=== PATIENT | female | born 1970 | race Caucasian/White ===

== ENCOUNTER 2020-03-01 09:32 | Outpatient (CLI) | payer MEDICARE, BC, SELFPAY ==
--- NOTE | ~2020-03-01 | XR_ITS ---
EXAMINATION: XR foot RT min 3V DATE: 03/01/2020 10:19 INDICATION: Right foot pain TECHNIQUE: Dorsoplantar, lateral, and 2 oblique views of the right foot were obtained. COMPARISON: None. FINDINGS: There is advanced osteoarthritis of the midfoot with degenerative subluxations of the calca caesar and talar articulations of the midfoot. No fracture is identified. The soft tissues are unremark able. There is mild to moderate osteoarthritis in multiple interphalangeal joints. IMPRESSION: 1. 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 Reviewed, dictated and finalized at location A.
--- NOTE | ~2020-03-01 | XR_ITS ---
EXAMINATION: XR thoracic spine 2V DATE: 03/01/2020 10:19 INDICATION: Back pain TECHNIQUE: AP, lateral and lateral swimmer's views of the thoracic spine were obtained. COMPARISON: 04/14/2019 FINDINGS: There is no fracture, dislocation, or subluxation. The vertebral body heights are normal. T here is loss of intervertebral disc space height at multiple levels in the thoracic spine, particular ly in the lower thoracic spine. Small degenerative osteophytes project from the anterior endplates of multiple vertebral bodies. Severe spondylosis is incidentally noted at C5-6. Median sternotomy wires are consistent with prior cardiac surgery. There is chronic scarring of the lung bases. IMPRESSION: 1. Moderate thoracic spondylosis without acute findings. Reviewed, dictated and finalized at location A.
--- NOTE | ~2020-03-01 | XR_ITS ---
EXAMINATION: XR lumbar spine 6V w bending DATE: 03/01/2020 10:19 INDICATION: Low back pain TECHNIQUE: Anteroposterior, lateral in neutral, flexion and extension, and bilateral oblique views of the lumbar spine, and cone-down lateral view of the lumbosacral junction were obtained. COMPARISON: 07/02/2014 FINDINGS: The vertebral body heights are normal. There is severe loss of intervertebral disc space he ight at L3-4, worsened since the comparison examination. Bone alignment is normal. There is no laxity with flexion or extension. There is no fracture. There are 15 degrees of lumbar dextroscoliosis. Mo derate lower lumbar facet osteoarthritis is noted. Small degenerative osteophytes project from the an terior endplates of multiple vertebral bodies. Surgical staple line is noted in the left upper quadra nt. IMPRESSION: 1. Moderate lumbar spondylosis with interval worsening at L3-4. No acute findings. Reviewed, dictated and finalized at location A. IMPRESSION: 1. Moderate lumbar spondylosis with interval worsening at L3-4. No acute findin gs.
== END 2020-03-01 09:33 | disposition home or self-care (01) ==
LOC: ANHIMG 09:42
PROVIDERS: PCP Family Medicine; Visit Provider Nurse Practitioner Family
DX: M79.671 Pain in right foot (principal); M54.6 Pain in thoracic spine; M54.5 Low back pain
CPT/HCPCS: 72070; 72114; 73630

== ENCOUNTER 2020-05-28 08:28 | Outpatient (CLI) | payer MEDICARE, BC, SELFPAY ==
--- NOTE | ~2020-05-28 | XR_ITS ---
XR knee RT 2V, XR knee LT 2V 05/28/2020 09:57 Indication: Bilateral knee pain Procedure: 2 views of each knee Comparison: No prior studies for comparison. Findings: There is moderate bilateral tricompartment osteoarthritis of the knees. No fracture or trau matic malalignment. No significant joint effusion. Impression: 1: Moderate bilateral tricompartment osteoarthritis of the knees. Reviewed, dictated and finalized at location B. Impression: 1: Moderate bilateral tricompartment osteoarthritis of the knees. Impression: 1: Moderate bilateral tricompartment osteoarthritis of the knees.
--- NOTE | ~2020-05-28 | MR_ITS ---
EXAMINATION: MR lumbar spine wo con EXAM DATE: 05/28/2020 09:38 INDICATION: Low back pain. TECHNIQUE: Multi-sequential, multiplanar MR images of the lumbar spine were obtained without contrast . Sagittal T1, T2, T2 fat saturation images. Axial T2 weighted images. Correlation is made to [facility] spine 2014. FINDINGS: There is moderate mid lumbar dextroscoliosis, moderate disc disease at L3-4 with slight los s of these vertebral body heights on there left, concave sides and endplate degenerative signal stephenson e. The conus medullaris terminates at the L1/2 level and has normal signal intensity and morphology. Otherwise mild lumbar disc disease. There is about 2 mm retrolisthesis L3 on L4. The vertebral freddy s are otherwise aligned in the AP dimension. Paraspinal soft tissue is unremarkable. Level by level evaluation: T11-12: There is a mild diffuse disc bulge. Facet arthropathy: Mild to moderate. Neural foraminal stenosis: Mild to moderate right, no left. Central canal stenosis: Mild. T12-L1: There is a mild diffuse disc bulge. Facet arthropathy: None. Neural foraminal stenosis: No stenosis. Central canal stenosis: No stenosis. L1-L2: Disc does not extend beyond the endplate margin. Facet arthropathy: None. Neural foraminal stenosis: No stenosis. Central canal stenosis: No stenosis. L2-L3: There is a mild diffuse disc bulge. Facet arthropathy: Mild to moderate. Neural foraminal stenosis: Mild bilateral. Central canal stenosis: Mild. L3-L4: There is a moderate to large diffuse disc bulge. Facet arthropathy: Moderate to severe right, moderate left. Ligamentum flavum hypertrophy. Neural foraminal stenosis: Moderate to severe left, mild to moderate right. Central canal stenosis: Moderate. L4-L5: [id number] Facet arthropathy: Moderate to severe right, moderate left. Neural foraminal stenosis: Moderate right, mild to moderate left. Central canal stenosis: Mild. L5-S1: There is a mild diffuse disc bulge. Facet arthropathy: Moderate bilateral. Neural foraminal stenosis: Mild to moderate bilateral. Central canal stenosis: Mild. IMPRESSION: Moderate mid lumbar dextroscoliosis centered at L3-4 with mild loss of these vertebral gris dy heights, central canal and neural foraminal stenosis most narrowed at this level. Reviewed, dictated and finalized at location A. IMPRESSION: Moderate mid lumbar dextroscoliosis centered at L3-4 with mild loss of these vertebral body heights, central canal and neural foraminal stenosis m ost narrowed at this level.
--- NOTE | ~2020-05-28 | XR_ITS ---
XR hip BI wo pelvis 05/28/2020 09:56 Indication: Chronic hip pain Procedure: 2 views each hip Comparison: No prior studies for comparison. Findings: No fracture or traumatic malalignment. Pelvic rings are intact. Sacral foramen are symmetri c. No significant joint space narrowing. No radiopaque foreign bodies. There are surgical changes ove rlying the pelvis. Impression: 1: No significant bone or joint abnormality. Reviewed, dictated and finalized at location B. Impression: 1: No significant bone or joint abnormality.
== END 2020-05-28 08:29 | disposition home or self-care (01) ==
PROVIDERS: PCP Family Medicine; Visit Provider Pain Medicine Interventional Pain Medicine
DX: M16.9 Osteoarthritis of hip, unspecified (principal); K91.1 Postgastric surgery syndromes; I69.811 Memory deficit following other cerebrovascular disease; F33.1 Major depressive disorder, recurrent, moderate; M17.0 Bilateral primary osteoarthritis of knee
CPT/HCPCS: 72148; 73521; 73560

== ENCOUNTER → 2020-07-16 10:49 | Outpatient (CLI) | payer MEDICARE, BC, SELFPAY ==
--- NOTE | ~2020-07-16 | MR_ITS ---
EXAMINATION: MR brain/brain stem wo/w con EXAM DATE: 07/16/2020 11:48 INDICATION: Transient cerebral ischemia headaches. History hypoxic brain injury . Generalized headach es. Memory loss. TECHNIQUE: Magnetic resonance imaging (MRI) of the brain/brain stem obtained without contrast. Sagit melanie T1, axial diffusion, gradient echo (T2*), T1, T2, FLAIR sequences obtained. Patient was then inj ected with 15 cc intravenous Multihance contrast. Axial and coronal postcontrast T1 weighted sequence s obtained. There is no prior study for comparison. FINDINGS: There are no areas of restricted diffusion to suggest acute infarction. There is no acute hemorrhage seen on the T2*, a hemosiderin sensitive sequence. No intraparenchymal brain mass. The ve ntricles are normal in size. There are no extra-axial collections. Flow voids are seen in the cereb ral arteries on the T2-weighted sequences consistent with their expected patency. The orbits are unr emarkable. Soft tissue is unremarkable. There are no areas of abnormal enhancement on the postcont rast images. IMPRESSION: Normal brain MRI examination. Reviewed, dictated and finalized at location B. 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
[2020-07-16 11:24] LABS: Estimated Glomerular Filt Rate > 60
== END ==
DX: G45.9 Transient cerebral ischemic attack, unspecified (principal)
CPT/HCPCS: 70553; A9577

== ENCOUNTER → 2021-03-02 12:26 | Outpatient (CLI) | payer MEDICARE, BC, SELFPAY ==
--- NOTE | ~2021-03-02 | XR_ITS ---
XR knee LT 2V 03/02/2021 13:40 Indication: Left knee pain Procedure: 2 views left knee Comparison: 05/28/2020 Findings: There is severe osteoarthritis of the left knee. No fracture, subluxation or dislocation. N o significant joint effusion. No foreign bodies. Impression: 1: Severe osteoarthritis of the left knee. Reviewed, dictated and finalized at location B. Impression: 1: Severe osteoarthritis of the left knee.
--- NOTE | ~2021-03-02 | XR_ITS ---
XR knee RT 2V 03/02/2021 13:40 Indication: Right knee pain Procedure: 2 views right knee Comparison: 05/28/2020 Findings: There is moderate tricompartment osteoarthritis of the right knee. No fracture, subluxation or dislocation. Small joint effusion. No foreign bodies. Osteopenia. There is chondrocalcinosis. Impression: 1: Moderate tricompartment osteoarthritis of the right knee. Reviewed, dictated and finalized at location B. Impression: 1: Moderate tricompartment osteoarthritis of the right knee.
== END ==
PROVIDERS: PCP Family Medicine; Visit Provider Pain Medicine Interventional Pain Medicine
DX: E66.9 Obesity, unspecified (principal); M16.9 Osteoarthritis of hip, unspecified; F33.1 Major depressive disorder, recurrent, moderate; K91.1 Postgastric surgery syndromes; G89.4 Chronic pain syndrome; I69.811 Memory deficit following other cerebrovascular disease; M17.0 Bilateral primary osteoarthritis of knee
CPT/HCPCS: 73560

== ENCOUNTER 2021-05-24 13:07 | Outpatient (CLI) | payer MEDICARE, BC, SELFPAY ==
--- NOTE | ~2021-05-24 | XR_ITS ---
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 TECHNIQUE: Frontal and lateral projections of the chest obtained and reviewed. Comparison is made to prior examination from 10/03/2019. FINDINGS: Sternotomy wires are present without findings to suggest sternal dehiscence. There is card iomegaly. There is elevated left hemidiaphragm again noted, air-filled viscus below. Hemidiaphragm pa ralysis not excludable. Scattered basilar atelectasis also not definitely changed. No evidence of sup erimposed acute airspace disease. No pneumothorax. Small pleural effusions. There are bony degenerati ve changes. IMPRESSION: Cardiomegaly and small pleural effusions. Chronic basilar atelectasis. Possible left hem idiaphragm paralysis. Reviewed, dictated and finalized at location B. IMPRESSION: Cardiomegaly and small pleural effusions. Chronic basilar atelecta sis. Possible left hemidiaphragm paralysis.
== END 2021-05-24 13:08 | disposition home or self-care (01) ==
LOC: ANHIMG 13:18
PROVIDERS: PCP Family Medicine
DX: Z94.1 Heart transplant status (principal); J90 Pleural effusion, not elsewhere classified; I51.7 Cardiomegaly
CPT/HCPCS: 71046

== ENCOUNTER 2021-06-24 10:16 | Emergency (ER) | payer MEDICARE, BC, SELFPAY ==
[2021-06-24] VITALS (87 sets, daily range): BP systolic 53–112; BP diastolic 34–96; PULSE 105–134; RESP 18–44; TEMP 36.3; O2SAT 91–100
--- NOTE | ~2021-06-24 | CT_ITS ---
EXAMINATION: CT abdomen pelvis wo con DATE: 06/24/2021 14:14 INDICATION: Generalized abdominal pain. TECHNIQUE: Computed tomography (CT) of the abdomen and pelvis was performed without intravenous contr ast. Automated exposure control and iterative reconstruction technique were employed. The dose-length product was 384.22 mGy-cm. COMPARISON: CT abdomen and pelvis 07/13/2017, chest CT 04/24/19 FINDINGS: There is chronic elevation of left hemidiaphragm. The visualized portions of the lung bases demonstrate mild atelectasis and scarring. Calcified left lung nodules are consistent with old granu lomatous disease. There is chronic cavitation in right lower lobe with adjacent chronic pleural thick ening. No pleural effusion. There are changes of heart transplant. No pericardial effusion. There is a central line tip at superior cavoatrial junction. There are changes of gastric bypass procedure. Th e liver and spleen are normal. The gallbladder is distended. The pancreas, adrenal glands, and right kidney are normal. There is a 16 mm hemorrhagic cyst in left kidney. There are 3 stones in left kidne y measuring up to 5 mm. There is mild left hydronephrosis and hydroureter. There is a 4 mm stone in d istal left ureter. The bladder is decompressed by a Mckeon catheter. There are no dilated loops of bow el. The appendix is normal. There are no pathologically enlarged lymph nodes. There is trace ascites. There is lumbar dextroscoliosis and severe spondylosis. IMPRESSION: 1. 4 mm stone in distal left ureter with mild left hydronephrosis and hydroureter. 2. Nonobstructing left kidney stones. 3. Scarring in the inferior lungs including chronic cavitation in right lower lobe with adjacent jewel bearing turner jorge pleural thickening. 4. Gallbladder distention, which may be secondary to fasting. Correlate with physical exam for eviden ce of acute cholecystitis. Reviewed, dictated and finalized at location A. IMPRESSION: 1. 4 mm stone in distal left ureter with mild left hydronephrosis and hydrouret er. 2. Nonobstructing left kidney stones. 3. Scarring in the inferior lungs including chronic cavitation in right lower l obe with adjacent chronic pleural thickening. 4. Gallbladder distention, which may be secondary to fasting. Correlate with ph ysical exam for evidence of acute cholecystitis.
--- NOTE | ~2021-06-24 | XR_ITS ---
EXAMINATION: XR chest port-a-cath/central EXAM DATE: 06/24/2021 12:34 INDICATION: Post procedure Central line placement. TECHNIQUE: Portable AP frontal chest x-ray was obtained. Comparison is made to prior examination from 05/24/2021. FINDINGS: Sternotomy wires are present without findings to suggest sternal dehiscence. There is a rig ht-sided IJ venous line. No evidence of postprocedure pneumothorax. There is cardiomegaly. Again ther e is elevated left hemidiaphragm, blunting of the costophrenic recess which could be small effusions, and bibasilar airspace disease most consistent with atelectasis, but please correlate with CT abdome n pelvis which has not yet been performed. There are no osseous abnormalities identified. IMPRESSION: Persistent cardiomegaly, bibasilar atelectasis. Cardiomegaly, small pleural effusions. Pn eumonia and left hemidiaphragm paralysis not excludable. Reviewed, dictated and finalized at location B. IMPRESSION: Persistent cardiomegaly, bibasilar atelectasis. Cardiomegaly, small pleural effusions. Pneumonia and left hemidiaphragm paralysis not excludable.
--- NOTE | 2021-06-24 10:21 | ECG_ITS ---
Measurements Intervals [place] Rate: 115 P: 33 LA: 155 QRS: 7 QRSD: 123 T: 21 QT: 355 QTc: 492 Interpretive Statements SINUS TACHYCARDIA RIGHT BUNDLE BRANCH BLOCK ABNORMAL ECG Electronically Signed On 06-24-2021 11:28:20 CDT by Raul Lantigua D.O.
[2021-06-24 10:27] LABS: Glucose Point of Care 55 mg/dl (65-105)
[2021-06-24] MEDS: SODIUM CHLORIDE 0.9% IV 1,000 ML 999 ML IV CONT ×2 (10:28→12:05)
[2021-06-24] MEDS: HYDROmorphone HCL INJ (*CRX) 1 MG/ML SYR IV PUSH (10:29)
[2021-06-24] MEDS: ONDANSETRON INJ 4 MG/2 ML VIAL IV PUSH (10:30)
[2021-06-24 11:12] LABS: Basophils Absolute Auto 0.1 K/mm3 (0.0-0.1); Basophils Percent Auto 0.5 % (0.2-1.2); Eosinophils Absolute Auto 0.1 K/mm3 (0-0.3); Eosinophils Percent Auto 0.4 % (0-4.4); Hematocrit 41.6 % (37.0-47.0); Hemoglobin 12.5 g/dL (12.0-15.0); Immature Granulocyte Percent A 1.1 % (0-0.5); Lymphocytes Absolute Auto 0.82 K/mm3 (0.9-3.2); Lymphocytes Percent Auto 4.3 % (18.3-44.2); Mean Corpuscular Volume 93.3 fl (80-100); Mean Platelet Volume 10.7 fl (7.4-10.4); Monocytes Absolute Auto 0.2 K/mm3 (0.1-0.6); Neutrophils Absolute Auto 17.6 K/mm3 (1.3-6.7); Neutrophils Percent Auto 92.7 % (45.5-73.1); Platelet Count Result 161 k/mm3 (150-375); Red Blood Count 4.46 M/mm3 (4.2-5.4); Red Cell Distribution Width 14.9 % (11.5-14.5)
[2021-06-24 11:30] LABS: INR 1.6; Lactic Acid Reflex 9.2 mmol/L (0.7-2.1); Prothrombin Time 18.6 Seconds (11.1-14.7)
[2021-06-24 11:31] LABS: Partial Thromboplastin Time 38.9 SECONDS (22.3-36.8)
[2021-06-24 11:48] LABS: Albumin Level 3.3 g/dL (3.5-5.1); Alkaline Phosphatase 98 U/L (38-126); Anion Gap 17 mmol/L (8-16); Bilirubin,Total 0.8 mg/dL (0.2-1.3); Blood Urea Nitrogen 34 mg/dL (7-17); Calcium 8.2 mg/dL (8.4-10.2); Carbon Dioxide 21 mmol/L (22-30); Chloride 102 mmol/L (98-107); Estimated CRCL calculation 21 ml/min; Estimated Glomerular Filt Rate 20; Glucose 163 mg/dL (65-110); Lipase 22 U/L (23-300); Potassium 3.6 mmol/L (3.4-5.0); Sodium 140 mmol/L (137-145)
[2021-06-24 11:54] LABS: Alanine Aminotransferase 328 U/L (4-35)
[2021-06-24 12:04] LABS: Glucose Point of Care 73 mg/dl (65-105)
--- NOTE | 2021-06-24 12:18 | PC.NURSE ---
Blood cultures drawn x 2. Will start antibiotics
[2021-06-24] MEDS: NOREPINEPHRINE 8 MG/D5W 250 ML 8 MG/250 ML BAG 9.38 MG IV CONT (12:33)
--- NOTE | 2021-06-24 12:38 | PC.NURSE ---
Norepi drip started at this time. HR 118, BP 80/54
--- NOTE | 2021-06-24 13:06 | ED.ABDPAIN ---
HPI - Abdominal Pain General Chief Complaint: Abdominal Pain Stated Complaint: N/V/D PAIN ALL OVER Time Seen by Provider: 06/24/21 10:21 Source: patient History of Present Illness HPI narrative: Patient presents with diffuse body aches most prominent in her abdomen. Her pain is achy, constant, radiates all over her body, worse with any sort of body movement. She has a prior history of cardiac transplant at [facility]. She was she generally is not feeling well she feels lightheaded she feels weak she denies fevers denies nausea or vomiting. Has been getting worse over the past couple days but were severe this morning. She called EMS she is feeling too weak to use the rest and soiled herself. Related Data Allergies Allergy/AdvReac Type Severity Reaction Status Date / Time amoxicillin Allergy Unknown Hives Verified 06/24/21 10:43 Penicillins Allergy Unknown Hives Verified 06/24/21 10:43 warfarin Allergy Unknown Hives Verified 06/24/21 10:43 COATING ON COUMADIN TAB Allergy Mild Hives Uncoded 06/24/21 10:43 Review of Systems Review of Systems: CONSTITUTIONAL: Denies fever, chills, or sweats. EYES: Denies visual changes, redness, or discharge. ENT: Denies rhinorrhea, congestion, sore throat, or otalgia. CARDIOVASCULAR: Reports diffuse chest pain RESPIRATORY: Denies cough or dyspnea. GASTROINTESTINAL: Reports diffuse abdominal pain GENITOURINARY: Denies dysuria or hematuria. SKIN: Denies rash or itching. MUSCULOSKELETAL: Reports diffuse back and joint pain NEUROLOGIC: Denies headache, numbness, dizziness, or focal weakness. All systems reviewed & are unremarkable except as noted in HPI and below [facility] Family History Family History Sibling Diabetes mellitus Exam Narrative: GENERAL: Patient appears chronically ill and in severe distress due to pain HEAD: Normocephalic, atraumatic. EYES: PERRLA and EOMI. ENT: Nares clear, no rhinorrhea or epistaxis. Mucous membranes moist. NECK: Supple. No masses. No JVD CHEST: Clear to auscultation. No respiratory distress. No wheezes rales or rhonchi HEART: Regular tachycardia. No murmur heard. Normal peripheral pulses. ABDOMEN: Severe diffuse abdominal pain soft, nondistended,. EXTREMITIES: Normal range of motion. No edema. SKIN: Warm, dry, no rash. NEURO: No focal deficits. Alert and oriented x3. PSYCH: Normal mood and affect. Procedures Central Line Placement Right IJ: Central Line Date: 06/24/21 Central Line Time: 12:08 Discussed w/ the patient/family/POA,the placement of a central venous catheter, including its clinical necessity/indication & associated potential risks, benifits and alternatives.: Yes The patient/family/POA understand(s) and acknowledge(s) the need to proceed with central venous catheter insertion as an important element of the patient's clinical management.: Yes Performed Emergently - Given emergent patient condition, temporal constraints may have precluded informed consent.: Yes Time Out Performed: No Patient Placed on Monitor/Pulse Ox: Yes Max. Sterile Barrier Technique: Caps, large sterile sheet and hand hygiene Central Line Prep: 2% chlorhexidine scrub Technique: US-Guided Local Anesthetic: lidocaine 1% and with epi Amount of anesthesia used (mL): 2 Ultrasound Used for Placement: Yes Central Line Lumen Inserted: triple Post Procedure: sutured in place, good blood return, all ports aspirated, flushed, capped and sterile dressing applied Post Procedure X-Ray: tip of catheter in good position and no pneumothorax seen Patient Tolerated Procedure: well Complications: none Course Reevaluation(s) Reevaluation #1: Patient's vital signs are improving with fluids and pressors. Primary concern is for urosepsis. Requesting transfer to [facility] as that is where her transplant team is and would likely need to be involve
--- NOTE | 2021-06-24 13:13 | PC.NURSE ---
IV Dilaudid administered for pain. Pt unable to lie still, MD aware. Will call CT scan as soon as patient is stabilized and able to lie still. MAP improving at 67, BP 84/59, HR 128
[2021-06-24] MEDS: HYDROmorphone HCL INJ (*CRX) 1 MG/ML SYR 0.5 MG IV PUSH ×3 (13:17→17:02)
--- NOTE | 2021-06-24 13:18 | PC.NURSE ---
Spoke with MD about Tacrolimus. OK to hold at this time due to kidney function.
[2021-06-24 14:03] LABS: Add Urine Microscopic? YES; Appearance Urine Cloudy (Clear); Bacteria Urine Trace /hpf; Bilirubin Urine Negative (Negative); Blood Urine 2+ (Negative); Color Urine Amber (Yellow); Glucose Urine UA Negative (Negative); Ketones Urine Negative (Negative); Leukocyte Esterase Ur 3+ LEU/UL (Negative); Mucus Urine Rare /lpf; Nitrate Urine Negative (Negative); Protein Urine 2+ mg/dL (Negative); RBC Urine 21-50 /hpf (0-2); Specific Grav Ur 1.013 (1.001-1.035); Squamous Epithelial Cell Urine Many /hpf (Few); Urobilinogen Urine Negative mg/dL (<2.0); WBC Clumps Urine Present /HPF; WBC Urine >75 /hpf
[2021-06-24 14:10] LABS: Reflex Lactic Acid Yes or No Add Lactic
[2021-06-24 14:12] LABS: Aspartate Amino Transferase 789 U/L (14-36)
[2021-06-24 14:56] LABS: Lactic Acid 2.1 mmol/L (0.7-2.1)
[2021-06-24 15:15] LABS: Glucose Point of Care 61 mg/dl (65-105)
[2021-06-24] MEDS: DEXTROSE 10% 500 ML IV CONT (15:20)
[2021-06-24 16:35] LABS: Glucose Point of Care 80 mg/dl (65-105)
--- NOTE | 2021-06-24 16:35 | PC.NURSE ---
Dr. Astorga informed of most recent blood glucose of 80. Will continue to monitor. No new orders at this time.
--- NOTE | 2021-06-24 17:41 | PC.NURSE ---
Blood pressure 78/49. Verbal order given to increase levophed to 6mcg/min (11.3ml/hr)
[2021-06-24 19:00] LABS: Glucose Point of Care < 20 mg/dl (65-105)
--- NOTE | 2021-06-24 19:02 | PC.NURSE ---
Received call from Domitila at [facility] transfer center. Pt has been admitted to [facility], room [address]. Will call report at [phone]
[2021-06-24 19:03] LABS: Glucose Point of Care < 20 mg/dl (65-105)
[2021-06-24] MEDS: DEXTROSE 50% 25 GM/50 ML SYRINGE (19:11)
[2021-06-24] MEDS: DEXTROSE 10% 500 ML 100 ML IV CONT (19:12)
[2021-06-24 19:37] LABS: Glucose Point of Care 94 mg/dl (65-105)
--- NOTE | 2021-06-24 19:40 | PC.NURSE ---
Prior nurse rechecked blood sugar, read-out was low . aware. RN pushed one amp of D50 and hung D10 @ 100 ml/HR per order from Dr Trinidad. Rechecked prior to EMS transfer at 94
== END 2021-06-24 19:45 | disposition short-term general hospital (02) ==
PROVIDERS: Emergency Provider Emergency Medicine; PCP Family Medicine
DX: I95.9 Hypotension, unspecified (principal); E16.2 Hypoglycemia, unspecified; R00.0 Tachycardia, unspecified; N39.0 Urinary tract infection, site not specified; R31.9 Hematuria, unspecified; D72.829 Elevated white blood cell count, unspecified; N13.2 Hydronephrosis with renal and ureteral calculous obstruction; Z94.1 Heart transplant status; I45.10 Unspecified right bundle-branch block; I51.7 Cardiomegaly; R91.8 Other nonspecific abnormal finding of lung field
CPT/HCPCS: 36415; 51702; 74176; 80053; 80197; 81001; 82948; 83605; 83690; 85025; 85610; 85730; 87040; 87077; 87086; 87186; 93005; 96361; 96365; 96366; 96367; 96368; 96375; 96376; 99285; C1751; J0131; J0692; J1170; J2405; J3370; J7030

== ENCOUNTER 2021-10-20 20:06 | Emergency (ER) | payer MEDICARE, BC, SELFPAY ==
[2021-10-20 20:09] VITALS: BP 168/97; PULSE 100; RESP 18; TEMP 36.2; O2SAT 97
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
== END 2021-10-20 22:01 | disposition home or self-care (01) ==
PROVIDERS: Emergency Provider Emergency Medicine; PCP Family Medicine
DX: S90.921A Unspecified superficial injury of right foot, initial encounter (principal); X08.8XXA Exposure to other specified smoke, fire and flames, initial encounter
CPT/HCPCS: 99282

== ENCOUNTER → 2021-11-23 11:47 | Outpatient (CLI) | payer MEDICARE, BC, SELFPAY ==
--- NOTE | ~2021-11-23 | XR_ITS ---
XR lumbar spine 2-3V 11/23/2021 12:10 Indication: Radiculopathy Procedure: 3 views lumbar spine Comparison: 03/01/2020 Findings: There is disc narrowing at all lumbar levels with right lateral listhesis at L3-4. There ar e multilevel degenerative changes of the facet joints. No acute fracture or traumatic malalignment. T here is dextroscoliosis centered at L3. Sacral foramen are symmetric. Impression: 1: Moderate lumbar spondylosis with dextroscoliosis. Reviewed, dictated and finalized at location B. Impression: 1: Moderate lumbar spondylosis with dextroscoliosis.
== END ==
PROVIDERS: Visit Provider Pain Medicine Interventional Pain Medicine
DX: M25.559 Pain in unspecified hip (principal); K91.1 Postgastric surgery syndromes; F33.1 Major depressive disorder, recurrent, moderate; E66.9 Obesity, unspecified; I69.811 Memory deficit following other cerebrovascular disease; M17.9 Osteoarthritis of knee, unspecified; M16.9 Osteoarthritis of hip, unspecified; G89.4 Chronic pain syndrome; M47.26 Other spondylosis with radiculopathy, lumbar region
CPT/HCPCS: 72100

== ENCOUNTER 2022-02-07 23:40 | Emergency (ER) | payer MEDICARE, BC, SELFPAY ==
--- NOTE | ~2022-02-07 | XR_ITS ---
XR chest 2V 02/08/2022 00:16 Indication: Shortness of breath Procedure: PA and lateral views of the chest Comparison: Comparison to multiple prior studies sequentially, with oldest reviewed study dated 10/03. Findings: There is chronic bibasilar scarring/atelectasis unchanged dating back to 10/03/2019. Small r ight pleural effusion. Status post median sternotomy. Heart size normal. No pneumothorax. Impression: 1: Chronic bibasilar scarring/atelectasis unchanged from prior studies. Reviewed, dictated and finalized at location A. Impression: 1: Chronic bibasilar scarring/atelectasis unchanged from prior studies.
[2022-02-07 23:42] VITALS: BP 106/81; PULSE 120; RESP 22; TEMP 36.8; O2SAT 98
--- NOTE | 2022-02-07 23:46 | ECG_ITS ---
Measurements Intervals [place] Rate: 118 P: 30 LA: 166 QRS: -35 QRSD: 109 T: 47 QT: 436 QTc: 613 Interpretive Statements SINUS TACHYCARDIA LEFT AXIS DEVIATION [QRS AXIS < -30] BASELINE ARTIFACT NONSPECIFIC IVCD NONSPECIFIC T-WAVE ABNORMALITY BORDERLINE ECG COMPARED TO ECG 06/24/2021 11:03:19 LEFT-AXIS DEVIATION NOW PRESENT AND CRITERIA FOR RIGHT BUNDLE-BRANCH BLOCK NO LONGER MET Electronically Signed On 02-08-2022 11:31:20 CDT by Placido Hughes M.D.
[2022-02-08 00:28] VITALS: O2SAT 97
[2022-02-08 00:56] VITALS: PULSE 100; RESP 20
[2022-02-08] MEDS: ALBUTEROL SULFATE NEB 2.5 MG/3 ML INH 5 MG INHALATION (00:58)
[2022-02-08] MEDS: IPRATROPIUM BR 0.02% INH SOLN 0.5 MG/2.5 ML VIAL INHALATION (00:58)
[2022-02-08 01:10] VITALS: PULSE 114; RESP 15
[2022-02-08 02:01] LABS: Basophils Percent Auto 0.3 % (0.2-1.2); Eosinophils Absolute Auto 0.1 K/mm3 (0-0.3); Eosinophils Percent Auto 0.4 % (0-4.4); Hematocrit 37.5 % (37.0-47.0); Hemoglobin 11.1 g/dL (12.0-15.0); Immature Granulocyte Absolute 0.06 K/mm3 (0.00-0.031); Immature Granulocyte Percent A 0.5 % (0-0.5); Lymphocytes Absolute Auto 1.32 K/mm3 (0.9-3.2); Lymphocytes Percent Auto 10.5 % (18.3-44.2); Mean Corpuscular HGB Conc 29.6 g/dl (32-36); Mean Corpuscular Hemoglobin 26.4 pg (26-34); Mean Corpuscular Volume 89.1 fl (80-100); Mean Platelet Volume 9.4 fl (7.4-10.4); Neutrophils Absolute Auto 10.1 K/mm3 (1.3-6.7); Neutrophils Percent Auto 80.3 % (45.5-73.1); Platelet Count Result 204 k/mm3 (150-375); Red Blood Count 4.21 M/mm3 (4.2-5.4); Red Cell Distribution Width 15.9 % (11.5-14.5); White Blood Count 12.6 K/mm3 (4.5-10.0)
[2022-02-08 02:12] LABS: Alanine Aminotransferase 28 U/L (6-35); Albumin Level 3.5 g/dL (3.5-5.1); Alkaline Phosphatase 116 U/L (38-126); Anion Gap 4 mmol/L (8-16); Aspartate Amino Transferase 33 U/L (14-36); Bilirubin,Total 0.4 mg/dL (0.2-1.3); Blood Urea Nitrogen 15 mg/dL (7-17); Calcium 8.4 mg/dL (8.4-10.2); Carbon Dioxide 30 mmol/L (22-30); Chloride 105 mmol/L (98-107); Estimated CRCL calculation 67 ml/min; Estimated Glomerular Filt Rate > 60; Glucose 117 mg/dL (65-110); Potassium 3.8 mmol/L (3.4-5.0); Sodium 139 mmol/L (137-145)
--- NOTE | 2022-02-08 02:48 | ED.SOB ---
HPI - SOB/Dyspnea General Chief Complaint: Shortness of Breath/Dyspnea Stated Complaint: kidney issues Time Seen by Provider: 02/08/22 00:22 History of Present Illness HPI Narrative: Patient is a 51-year-old female who presents ER with cough. Ongoing for 4 days. No fevers or chills or sweats. Occasionally productive. No known sick contacts. Give her self at home COVID test that was negative. She is vaccinated and boosted against COVID. Patient has history of heart transplant 4 years ago. She does take tacrolimus. Patient finds with deep breaths she has frequent coughing. No chest pain with deep breaths. No lower extremity swelling. No aggravating or alleviating factors. Patient able to ambulate at baseline. Related Data Allergies Allergy/AdvReac Type Severity Reaction Status Date / Time amoxicillin Allergy Unknown Hives Verified 10/20/21 20:11 Penicillins Allergy Unknown Hives Verified 10/20/21 20:11 warfarin Allergy Unknown Hives Verified 10/20/21 20:11 COATING ON COUMADIN TAB Allergy Mild Hives Uncoded 06/24/21 10:43 Review of Systems Review of Systems: All systems reviewed & are unremarkable except as noted in HPI and below Constitutional: Constitutional: Denies chills, Reports fatigue and Denies fever(s) ENT: Denies nasal congestion and Denies sore throat Cardiovascular: Cardiovascular: Denies chest pain, Denies rapid heart rate and Denies radiating jaw, neck or arm pain Respiratory: Respiratory: Reports chest congestion, Reports cough and Reports dyspnea Gastrointestinal: Gastrointestinal: Denies abdominal pain, Denies nausea and Denies vomiting PMFSH Past Medical History Medical History (Updated 02/08/22 @ 02:56 by Valentino Cordova MD) Diabetes Hypertension Surgical History Surgical History (Updated 02/08/22 @ 02:56 by Valentino Cordova MD) History of gastric bypass History of heart transplant Status post panniculectomy Family History Family History Sibling Diabetes mellitus Social History Social History (Updated 02/08/22 @ 02:56 by Valentino Cordova MD) Smoking status: Never smoker Exam Narrative: GENERAL: Well-appearing, well-nourished, and in no acute distress. HEAD: Normocephalic, atraumatic. ENT: Mucous membranes moist. CHEST: Scattered rhonchi and wheezing. Mild respiratory distress. HEART: Tachycardic and regular. Normal peripheral pulses. ABDOMEN: Soft, nontender, nondistended. EXTREMITIES: Normal range of motion. No edema. SKIN: Warm, dry, no rash. NEURO: Alert and oriented x3. PSYCH: Normal mood and affect. Course Course Emergency Course: Lung sounds improved and patient feels better after nebulizer treatment. Heart rate also decreasing. Discussed treatment with steroids and inhaler. Also given the fact that patient has slight elevation in her white blood cell count and that she is immunosuppressed she will be for possible pneumonia. Follow-up with PCP. Patient verbalized understanding. Vital Signs Vital signs: Vital Signs Temperature 98.2 F 02/07/22 23:42 Pulse Rate 120 H 02/07/22 23:42 Respiratory Rate 22 H 02/07/22 23:42 Blood Pressure 106/81 02/07/22 23:42 Pulse Oximetry 98 02/07/22 23:42 Temperature 98.2 F 02/07/22 23:42 Pulse Rate 114 H 02/08/22 01:10 Respiratory Rate 15 02/08/22 01:10 Blood Pressure 106/81 02/07/22 23:42 Pulse Oximetry 97 02/08/22 00:28 Oxygen Delivery Room Air 02/08/22 00:28 MDM - SOB/Dyspnea Lab Data Result diagrams: 02/08/22 01:52 02/08/22 01:52 Labs: Lab Results 02/08/22 02/08/22 Range/Units 01:52 01:52 WBC 12.6 H (4.5-10.0) K/mm3 RBC 4.21 (4.2-5.4) M/mm3 Hgb 11.1 L (12.0-15.0) g/dL Hct 37.5 (37.0-47.0) % MCV 89.1 (80-100) fl MCH 26.4 (26-34) pg MCHC 29.6 L (32-36) g/dl RDW 15.9 H (11.5-14.5) % Plt Count 204 (150-375) k/mm3 MPV 9.4 (7.4-10.4) f
[2022-02-08 03:09] VITALS: BP 101/71; PULSE 103; RESP 18; O2SAT 96; O2SAT 97
== END 2022-02-08 03:11 | disposition home or self-care (01) ==
PROVIDERS: Emergency Provider Emergency Medicine; PCP Family Medicine
DX: J40 Bronchitis, not specified as acute or chronic (principal); E11.9 Type 2 diabetes mellitus without complications; I10 Essential (primary) hypertension
CPT/HCPCS: 36415; 71046; 80053; 85025; 93005; 94640; 99283

== ENCOUNTER → 2022-09-22 15:35 | Outpatient (CLI) | payer MEDICARE, BC, SELFPAY ==
--- NOTE | ~2022-09-22 | XR_ITS ---
XR cervical spine 4-5V DATE: 09/22/2022 16:29 INDICATION: Cervical radiculopathy TECHNIQUE: AP, open-mouth, lateral and swimmer views COMPARISON: None FINDINGS: There is reversal of cervical curvature. C1 and C2 are normally aligned and the odontoid process is intact. No fracture or dislocation or lock ed facet or prevertebral soft tissue swelling. C2-3 interspace is well preserved. Moderately severe degenerative disease at C3-4. Mild degenerative disc disease at C4-5. Moderately severe degenerative disc disease at C5-6. Status post sternotomy. IMPRESSION: Reversal of cervical curvature Multilevel degenerative disc disease, particularly at C3-4 and C5-6 Reviewed, dictated and finalized at location A. WORKER GROOM
== END ==
PROVIDERS: PCP Family Medicine; Visit Provider Pain Medicine Interventional Pain Medicine
DX: M54.12 Radiculopathy, cervical region (principal); M50.320 Other cervical disc degeneration, mid-cervical region, unspecified level; M50.322 Other cervical disc degeneration at C5-C6 level
CPT/HCPCS: 72050

== ENCOUNTER → 2022-11-09 09:52 | Outpatient (CLI) | payer MEDICARE, BC, SELFPAY ==
--- NOTE | ~2022-11-09 | XR_ITS ---
Lumbosacral Spine: AP and lateral views Clinical History: Pain Findings: There is dextroscoliosis of the lumbar spine, with Romero angle of approximately 32 degrees. There is probable moderate to severe degenerative disc narrowing at L3-L4 and L4-L5. There is advance d facet joint degenerative change from L3 through S1. The intervertebral disc spaces are preserved. S uspected anterolisthesis of L5 over S1, though visualization is suboptimal. The sacroiliac joints are normally outlined. Impression: Dextroscoliosis of lumbar spine, as detailed above, with associated degenerative spondylitic changes. Suspected anterolisthesis of L5 over S1. Poor visualization of the lumbosacral junction region. Reviewed, dictated and finalized at location M. ING MACHINE OPERATOR AUTOMATIC Impression: Dextroscoliosis of lumbar spine, as detailed above, with associated degenerativ e spondylitic changes. Suspected anterolisthesis of L5 over S1. Poor visualization of the lumbosacral junction region.
== END ==
PROVIDERS: PCP Family Medicine
DX: M54.16 Radiculopathy, lumbar region (principal); E66.9 Obesity, unspecified; F33.1 Major depressive disorder, recurrent, moderate; G89.4 Chronic pain syndrome; I69.811 Memory deficit following other cerebrovascular disease; K91.1 Postgastric surgery syndromes; M16.9 Osteoarthritis of hip, unspecified; M17.9 Osteoarthritis of knee, unspecified; M25.559 Pain in unspecified hip
CPT/HCPCS: 72100

== ENCOUNTER 2022-12-21 16:32 | Emergency (ER) | payer OTHER, SELFPAY ==
--- NOTE | ~2022-12-21 | CT_ITS ---
EXAMINATION: CT brain wo con INDICATION: Head injury COMPARISON: None TECHNIQUE: Standard unenhanced head CT. The dose-length product (DLP) was 605.33 mGy-cm. The mA was a djusted according to patient size. Iterative reconstruction technique was employed. FINDINGS: There is no intracranial hemorrhage, acute infarction, or abnormal mass lesion. The ventric les are normal. There is no abnormal mass effect or midline shift. The hyde-white matter differentiat ion is normal. The basal cisterns are patent. The orbits are normal. There is mild mucosal thickening of the paranasal sinuses. IMPRESSION: 1. No acute intracranial abnormality. Reviewed, dictated and finalized at location F.
[2022-12-21 16:56] VITALS: BP 123/75; PULSE 106; RESP 20; TEMP 36.2; O2SAT 100
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
[2022-12-21 18:41] VITALS: BP 127/91; PULSE 104; RESP 18; O2SAT 99
[2022-12-21 19:05] LABS: Basophils Absolute Auto 0.1 K/mm3 (0.0-0.1); Basophils Percent Auto 0.8 % (0.2-1.2); Eosinophils Absolute Auto 0.1 K/mm3 (0-0.3); Eosinophils Percent Auto 1.2 % (0-4.4); Hematocrit 37.2 % (37.0-47.0); Hemoglobin 10.7 g/dL (12.0-15.0); Immature Granulocyte Absolute 0.04 K/mm3 (0.00-0.031); Immature Granulocyte Percent A 0.5 % (0-0.5); Lymphocytes Absolute Auto 2.51 K/mm3 (0.9-3.2); Lymphocytes Percent Auto 28.3 % (18.3-44.2); Mean Corpuscular HGB Conc 28.8 g/dl (32-36); Mean Corpuscular Hemoglobin 21.4 pg (26-34); Mean Corpuscular Volume 74.5 fl (80-100); Mean Platelet Volume 9.7 fl (7.4-10.4); Monocytes Absolute Auto 0.5 K/mm3 (0.1-0.6); Monocytes Percent Auto 5.5 % (2.6-8.5); Neutrophils Absolute Auto 5.6 K/mm3 (1.3-6.7); Neutrophils Percent Auto 63.7 % (45.5-73.1); Platelet Count Result 378 k/mm3 (150-375); Red Blood Count 4.99 M/mm3 (4.2-5.4); Red Cell Distribution Width 18.5 % (11.5-14.5); White Blood Count 8.9 K/mm3 (4.5-10.0)
[2022-12-21 19:14] LABS: Alanine Aminotransferase 44 U/L (6-35); Albumin Level 3.6 g/dL (3.5-5.1); Alkaline Phosphatase 222 U/L (38-126); Anion Gap 5 mmol/L (8-16); Aspartate Amino Transferase 50 U/L (14-36); Bilirubin,Total 0.5 mg/dL (0.2-1.3); Blood Urea Nitrogen 28 mg/dL (7-17); Calcium 8.5 mg/dL (8.4-10.2); Carbon Dioxide 30 mmol/L (22-30); Chloride 105 mmol/L (98-107); Estimated CRCL calculation 55 ml/min; Estimated Glomerular Filt Rate > 60; Glucose 94 mg/dL (65-110); Potassium 3.9 mmol/L (3.4-5.0); Sodium 140 mmol/L (137-145)
[2022-12-21 19:18] LABS: Anisocytosis 1+ (NORMAL); Hypochromasia 1+ (NORMAL); Microcytosis 1+ (NORMAL); Ovalocytes 1+ (NORMAL); Platelet Estimate Increased (Adequate); Schistocytes None Seen (NORMAL)
== END 2022-12-21 19:53 | disposition home or self-care (01) ==
PROVIDERS: Emergency Provider Emergency Medicine; PCP Family Medicine
DX: S06.0X0A Concussion without loss of consciousness, initial encounter (principal); D84.9 Immunodeficiency, unspecified; E03.9 Hypothyroidism, unspecified; D68.61 Antiphospholipid syndrome; Z94.1 Heart transplant status; E78.5 Hyperlipidemia, unspecified; E55.9 Vitamin D deficiency, unspecified; M19.90 Unspecified osteoarthritis, unspecified site; F32.9 Major depressive disorder, single episode, unspecified; Z86.711 Personal history of pulmonary embolism; Z87.891 Personal history of nicotine dependence; Z98.84 Bariatric surgery status; Z79.82 Long term (current) use of aspirin; Z79.01 Long term (current) use of anticoagulants; W51.XXXA Accidental striking against or bumped into by another person, initial encounter
CPT/HCPCS: 36415; 70450; 80053; 85025; 99284

== ENCOUNTER 2023-11-16 10:06 | Outpatient (CLI) | payer MEDICARE, BC, SELFPAY ==
--- NOTE | ~2023-11-16 | XR_ITS ---
EXAMINATION: XR lumbar spine 2-3V DATE: 11/16/2023 10:44 INDICATION: Low back pain TECHNIQUE: Anteroposterior and lateral views of the lumbar spine, and cone-down lateral view of the l umbosacral junction were obtained. COMPARISON: 11/09/2022 FINDINGS: There are approximately 30 degrees of persistent lumbar dextroscoliosis. There is severe as ymmetric loss of intervertebral disc space height on the left at L3-4. There is severe facet joint os teoarthritis of the lower lumbar spine. There is moderate loss of intervertebral disc space height at L5-S1. No fracture is identified. IMPRESSION: 1. Lumbar dextroscoliosis and severe spondylosis without acute findings or significant interval stephenson e identified. Reviewed, dictated and finalized at location B. ROL CLERK HEAD IMPRESSION: 1. Lumbar dextroscoliosis and severe spondylosis without acute findings or sign ificant interval change identified.
--- NOTE | ~2023-11-16 | XR_ITS ---
EXAMINATION:XR cervical spine 4-5V DATE: 11/16/2023 10:44 INDICATION: Neck pain TECHNIQUE: AP, lateral, lateral swimmers and odontoid views of the cervical spine are provided. COMPARISON: None FINDINGS: There are 3 mm of anterolisthesis of C2 on C3. There is severe loss of intervertebral disc space height at C3-4 and C5-C6. There is moderate loss of intervertebral disc space height at C4-5. T he odontoid process is intact. No fracture is identified. The vertebral body heights are maintained. There is multilevel moderate facet and uncovertebral joint osteoarthritis. Prevertebral soft tissues are normal. IMPRESSION: 1. Severe cervical spondylosis without acute findings. Reviewed, dictated and finalized at location B. UCT MARKETER
--- NOTE | ~2023-11-16 | XR_ITS ---
Left Knee Technique: AP, lateral, and sunrise views were obtained. Clinical History: Pain Findings: No fracture or dislocation is seen. There is lateral compartment narrowing, with advanced d egenerative change of the lateral compartment. There is moderate degenerative change of the patellofe moral compartment. There is mild degenerative change of the medial compartment.. Soft tissues are unr emarkable. No joint effusion is seen. Impression: Severe degenerative change of the lateral compartment, moderate degenerative change of the patellofem oral compartment, and mild degenerative change of the medial compartment. Reviewed, dictated and finalized at location M. PAPER EDITOR Impression: Severe degenerative change of the lateral compartment, moderate degenerative ch jodie of the patellofemoral compartment, and mild degenerative change of the med ial compartment.
--- NOTE | ~2023-11-16 | XR_ITS ---
Right Knee Technique: AP, lateral, and sunrise views were obtained. Clinical History: Pain Findings: No fracture or dislocation is seen. Moderate to severe tricompartmental osteoarthritis is p resent, with narrowing of the medial lateral compartment.. Soft tissues are unremarkable. No joint ef fusion is seen. Impression: Moderate to severe tricompartmental osteoarthritis. Reviewed, dictated and finalized at location . SAFETY ASSISTANT Impression: Moderate to severe tricompartmental osteoarthritis.
== END 2023-11-16 10:07 ==
PROVIDERS: PCP Pain Medicine Interventional Pain Medicine; Visit Provider Pain Medicine Interventional Pain Medicine
DX: E66.9 Obesity, unspecified (principal); F33.1 Major depressive disorder, recurrent, moderate; I69.811 Memory deficit following other cerebrovascular disease; K91.1 Postgastric surgery syndromes; M16.9 Osteoarthritis of hip, unspecified; M47.22 Other spondylosis with radiculopathy, cervical region; M47.27 Other spondylosis with radiculopathy, lumbosacral region; M17.11 Unilateral primary osteoarthritis, right knee
CPT/HCPCS: 72050; 72100; 73564

== ENCOUNTER 2023-11-24 19:46 | Emergency (ER) | payer MEDICARE, BC, SELFPAY ==
[2023-11-24 19:58] VITALS: BP 135/89; PULSE 111; RESP 20; TEMP 36.6; O2SAT 100
--- NOTE | 2023-11-24 20:13 | ED.GENADULT ---
HPI - General Adult General Chief complaint: Nausea/Vomiting/Diarrhea Stated complaint: Nausea/Vomiting Time Seen by Provider: 11/24/23 20:01 Source: patient and RN notes reviewed Mode of arrival: ambulatory Limitations: no limitations History of Present Illness HPI narrative: Patient presents today with a 2 day history of nasal congestion, body aches, postnasal drip, nausea and vomiting, fatigue. Denies fever, cough, sore throat. Patient had 1 episode of vomiting at onset of symptoms, 1 yesterday. She has been so nauseated she has been unable to drink much as well. She tried some Pepto today with some relief. States she has been sleeping for most of the day the last couple of days. Home COVID test was negative. Related Data Home Medications Medication Instructions Recorded Confirmed apixaban 5 mg tablet (Eliquis) 5 mg PO BID 06/22/22 11/24/23 aspirin 81 mg tablet,delayed 81 mg PO DAILY 06/22/22 11/24/23 release (Adult Aspirin Regimen) bupropion HCl 300 mg 24 hr tablet, 300 mg PO QAM 06/22/22 11/24/23 extended release buspirone 5 mg tablet 5 mg PO BID 06/22/22 11/24/23 duloxetine 60 mg capsule,delayed 60 mg PO BID 06/22/22 11/24/23 release gabapentin 300 mg tablet 300 mg PO TID 06/22/22 11/24/23 lidocaine 5 % topical patch 1 patch topical DAILY 06/22/22 11/24/23 montelukast 10 mg tablet 10 mg PO DAILY 06/22/22 11/24/23 mycophenolate mofetil 500 mg tablet 500 mg PO Q12H 06/22/22 11/24/23 oxycodone-acetaminophen 7.5 mg-325 1 tablet PO Q6H PRN Pain 06/22/22 11/24/23 mg tablet pantoprazole 40 mg tablet,delayed 40 mg PO QAM 06/22/22 11/24/23 release pantoprazole 40 mg tablet,delayed 40 mg PO QHS 06/22/22 11/24/23 release rosuvastatin 20 mg tablet 20 mg PO DAILY 06/22/22 11/24/23 tacrolimus 1 mg capsule, 1 mg PO Q12H 06/22/22 11/24/23 immediate-release atomoxetine 80 mg capsule 80 mg PO DAILY 12/08/22 11/24/23 methylphenidate HCl 27 mg 27 mg PO QAM 12/08/22 11/24/23 tablet,extended release 24 hr cholecalciferol (vitamin D3) 1,250 1,250 mcg PO WEEKLY 07/05/23 11/24/23 mcg (50,000 unit) capsule Allergies Allergy/AdvReac Type Severity Reaction Status Date / Time amoxicillin Allergy Unknown Hives Verified 10/11/23 10:14 Penicillins Allergy Unknown Hives Verified 10/11/23 10:14 COATING ON COUMADIN TAB Allergy Mild Hives Uncoded 10/11/23 10:14 Review of Systems Review of Systems: CONSTITUTIONAL: Denies fever, chills, or sweats.+ body aches, fatigue EYES: Denies visual changes, redness, or discharge. ENT: Denies rhinorrhea, sore throat, or otalgia.+ congestion, postnasal drip CARDIOVASCULAR: Denies chest pain, palpitations, or edema. RESPIRATORY: Denies cough or dyspnea. GASTROINTESTINAL: Denies abdominal pain, or diarrhea.+ nausea and vomiting GENITOURINARY: Denies dysuria or hematuria. SKIN: Denies rash, itching, or wounds. MUSCULOSKELETAL: Denies back pain, joint pain, or myalgia. NEUROLOGIC: Denies headache, numbness, tingling, or weakness. PSYCH: Denies depression or anxiety. [facility] Past Medical History Medical History Allergic rhinitis, unspecified Antiphospholipid syndrome (~12/08/22) Cardiomyopathy, unspecified History of pulmonary embolism Hyperlipidemia, unspecified Hypothyroidism, unspecified Insomnia Leukocytoclastic vasculitis Major depressive disorder Major depressive disorder, single episode, unspecified Osteoarthritis Vitamin D deficiency Surgical History Surgical History History of arthroscopy of right knee 1986 History of esophagogastroduodenoscopy (EGD) 01/29/2013, 07/2013 History of foot surgery right 11/2010 History of gastric bypass 04/04/2012 History of heart transplant 04/06/2018 History of implantable cardiac defibrillator (ICD) placement 2004 replaced 2009 update 08/21/2014 History of left ventricular assist device (LVAD) LVAD a
== END 2023-11-24 20:19 | disposition home or self-care (01) ==
PROVIDERS: Emergency Provider Nurse Practitioner; PCP Family Medicine
DX: B34.9 Viral infection, unspecified (principal); Z87.891 Personal history of nicotine dependence; F12.90 Cannabis use, unspecified, uncomplicated; I42.9 Cardiomyopathy, unspecified; E78.5 Hyperlipidemia, unspecified; E03.9 Hypothyroidism, unspecified; M19.90 Unspecified osteoarthritis, unspecified site; E55.9 Vitamin D deficiency, unspecified; Z86.711 Personal history of pulmonary embolism; Z98.84 Bariatric surgery status; Z94.1 Heart transplant status; Z95.810 Presence of automatic (implantable) cardiac defibrillator; Z79.82 Long term (current) use of aspirin; F32.9 Major depressive disorder, single episode, unspecified
CPT/HCPCS: 87804; 99213; G0463

== ENCOUNTER 2025-02-18 13:42 | Outpatient (CLI) | payer MEDICARE, BC, SELFPAY ==
--- NOTE | ~2025-02-18 | XR_ITS ---
Cervical Spine: AP, lateral, open-mouth views Clinical History: Radiculopathy Findings: There is mild reversal of the normal cervical lordosis. No fracture evident. There is grade 1 retrolisthesis of C5 over C6. There is severe degenerative disc narrowing at C3-C4, possible parti al fusion across the disc space. There is also severe degenerative disc narrowing at C5-C6. There is mild facet arthropathy in the cervical spine. Pre-vertebral soft tissues are unremarkable. Impression: Moderate to advanced degenerative spondylosis, especially at C3-C4 and C5-C6. Please see details aramis e. Reviewed, dictated and finalized at location M. Impression: Moderate to advanced degenerative spondylosis, especially at C3-C4 and C5-C6. P lease see details above.
--- NOTE | ~2025-02-18 | XR_ITS ---
XR lumbar spine 2-3V 02/18/2025 14:16 Indication: Radiculopathy Procedure: 3 views lumbar spine Comparison: 11/16/2023 Findings: There is disc height loss at all lumbar levels, most severe at L3-4. There is right lateral listhesis at L3-4. There is dextroscoliosis centered at L3 measuring 30 degrees. There is severe mul tilevel facet hypertrophy. Sacral foramen are symmetric. Impression: 1: Severe lumbar spondylosis with dextroscoliosis measuring 30 degrees. Reviewed, dictated and finalized at location [] Impression: 1: Severe lumbar spondylosis with dextroscoliosis measuring 30 degrees.
--- NOTE | ~2025-02-18 | XR_ITS ---
Right Knee Technique: AP, lateral, and sunrise views were obtained. Clinical History: Pain Findings: No fracture or dislocation is seen. Suspected focal bone infarct of the proximal tibia. Oss eous alignment is anatomic. Moderate tricompartmental degenerative joint disease is present. Soft tis sues are unremarkable. No joint effusion is seen. Impression: Moderate tricompartmental degenerative joint disease. Probable focal bone infarct the proximal tibia. Reviewed, dictated and finalized at location . Impression: Moderate tricompartmental degenerative joint disease. Probable focal bone infarct the proximal tibia.
--- NOTE | ~2025-02-18 | XR_ITS ---
Left Knee Technique: AP, lateral, and sunrise views were obtained. Clinical History: Pain Findings: No fracture or dislocation is seen. There is severe degenerative change of the medial patricia rtment, medial compartment narrowing and osteophyte formation. There is moderate degenerative spurrin g of the lateral and patellofemoral compartments.. Soft tissues are unremarkable. No joint effusion i s seen. Impression: Advanced medial compartment degenerative change. Moderate degenerative change of the lateral and floyd llofemoral compartments. Reviewed, dictated and finalized at location M. Impression: Advanced medial compartment degenerative change. Moderate degenerative change o f the lateral and patellofemoral compartments.
== END 2025-02-18 13:43 | disposition home or self-care (01) ==
LOC: MICIMG 13:44
PROVIDERS: PCP Family Medicine; Visit Provider Pain Medicine Interventional Pain Medicine
DX: F33.1 Major depressive disorder, recurrent, moderate (principal); E66.9 Obesity, unspecified; K91.1 Postgastric surgery syndromes; M16.9 Osteoarthritis of hip, unspecified; I69.811 Memory deficit following other cerebrovascular disease; M47.26 Other spondylosis with radiculopathy, lumbar region; M47.22 Other spondylosis with radiculopathy, cervical region
CPT/HCPCS: 72040; 72100; 73562

== ENCOUNTER 2025-06-27 11:22 | Outpatient (CLI) | payer MEDICARE, BC, SELFPAY ==
--- OUTSIDE RECORDS SUMMARY | 2024-08-14 04:00 | XMS_ITS ---
Author Organization [facility] [employer] [facility] Address [address] [place] [address] [address] [facility] [address] [place] [address] Care Team Providers Care Orthopaedic Nurse Name Role Phone Jose Matute MD Primary Care Provider Unavailab Tereso Steinberg Unavailable [phone] Rachel Forman Unavailable [phone] Social History Sex Assigned At : Social History Observation Description Sex Assigned At Female Encounters Encounter Location Date Provider Diagnosis [facility] [employer] [address] [address] 08/14/2024 Rachel Forman Plan Of Treatment No Information Progress Notes * VICTOR HUGO SIMPSON MDOB:0 1970 (55 yo F)Acc No.[id number]:08/14/2024 Patient: [place] TALBOTVICTOR HUGO HOROWITZ Provider: Stiven FORMAN LCSW :1970 A ge:54 Y S ex:Female Date:08/14/2024 Address:[address] [place], [place] [id number] Pcp:Jose Matute MD Plan: * Procedure Codes: N STHR NO SHOW THERAPY Billing Information: * Procedure Codes: NSTHR NO SHOW THERAPY. * Electronic signature of Kaylie Forman LCSW on 06/27/2025 at 11:27 AM CDT Sign off status: Pending Signatures: No Ad Hoc Signature Added * Provider: Stiven FORMAN LCSW Date: 1 10/15/2023 Generated for Mehran antunez/Deangelo/Gayle on: 1 11:27 AM CDT
--- OUTSIDE RECORDS SUMMARY | 2024-08-25 05:00 | XMS_ITS ---
Author Organization [facility] [employer] [facility] Address [address] [place] [address] [address] Care Team Providers Care Cable Tower Operator Name Role Phone Jose Matute MD Primary Care Provider Unavailab Tereso Steinberg Unavailable [phone] Rachel Forman Unavailable [phone] Social History Sex Assigned At : Social History Observation Description Sex Assigned At Female Encounters Encounter Location Date Provider Diagnosis [facility] [employer] [place] [id number] [facility] [address] [address] 08/25/2024 Rachel Forman Plan Of Treatment No Information Progress Notes * VICTOR HUGO SIMPSON MDOB:0 1970 (55 yo F)Acc No.[id number]:08/25/2024 Patient: [place] VICTOR HUGO ROJO Provider: Stiven FORMAN LCSW :1970 A ge:54 Y S ex:Female Date:08/25/2024 Address:[address] [place], [place] [id number] Pcp:Jose Matute MD Billing Information: * Procedure Codes: * Electronic signature of Kaylie Forman LCSW on 06/27/2025 at 11:28 AM CDT Sign off status: Pending Signatures: No Ad Hoc Signature Added * Provider: Stiven FORMAN LCSW Date: 1 10/26/2023 Generated for Mehran antunez/Deangelo/eTransmitting on: 1 11:28 AM CDT
--- NOTE | ~2025-06-27 | MR_ITS ---
EXAMINATION: MR abdomen wo/w con DATE: 06/27/2025 14:08 INDICATION: Renal mass. TECHNIQUE: Magnetic resonance imaging (MRI) of the abdomen was performed without and with 15 mL MultiHance intravenous contrast. COMPARISON: CT abdomen and pelvis 06/24/2021 FINDINGS: There is elevation of left hemidiaphragm. There is chronic right-sided pleural thickening. The liver and spleen are normal. There are gallstones in the gallbladder which is normal in size. The pancreas and adrenal glands are normal. There is cortical thinning of the kidneys. There are cysts in the kidneys measuring up to 10 mm on the right. There are changes of cryoablation the right kidney. There is an 8 x 4 mm focus of enhancement in the area of the cryoablation. There are no dilated loops of bowel. There are no pathologically enlarged lymph nodes. There is no free intraperitoneal fluid. IMPRESSION: 1. 8 x 4 mm focus of enhancement in the area of the cryoablation of right kidney, which is indeterminate for residual neoplasm. Correlation with preoperative imaging is recommended. Reviewed, dictated and finalized at location E. IMPRESSION: 1. 8 x 4 mm focus of enhancement in the area of the cryoablation of right kidne y, which is indeterminate for residual neoplasm. Correlation with preoperative imaging is recommended.
--- OUTSIDE RECORDS SUMMARY | 2025-06-27 11:27 | XMS_ITS | Patient Health Record ---
Author Organization [facility] [employer] [facility] Address [address] [place] [address] Care Team Providers Care Case Briefer Name Role Phone Giovani ASTORGA, Jose Primary Care Provider Unavailab Tereso Steinberg Unavailable [phone] Rachel Forman Unavailable [phone] Allergies Allergen (clinical drug ingredient) Drug/Non Drug Allergy documented on EMR Reaction Allergy Type Onset Date Status amoxicillin Amoxicillin Unknown Drug Allergy 12/20/2023 Ac tive Coumadin Unknown Drug Allergy 12/20/2023 Active Substance with penicillin structure and antibacterial mechanism of action (substance) Penicillins Unknown Drug Allergy 12/20/2023 Active Reason For Referral No Information Medications Medication SIG (Take, Route, Frequency, Duration) Notes Start Date End Date Status Vitamin D3 1.25 MG (34179 UT) Capsule TAKE ONE CAPSULE BY MOUTH EVERY WEEK Oral; Duration: 28 Days Active Pantoprazole Sodium 40 MG Tablet Delayed Release TAKE 1 TABLET BY MOUTH TWICE A DAY Oral; Duration: 90 Days Active Montelukast Sodium 10 MG Tablet Oral; Duration: 90 Days Acti ve Losartan Potassium 25 MG Tablet TAKE 1 TABLET (25 MG TOTAL) BY MOUTH DAILY. Oral; Duration: 90 Days Active DULoxetine HCl 60 MG Capsule Delayed Release Particles 1 capsule Oral twice a day; Duration: 90 days Active ARIPiprazole 2 MG Tablet 1 tablet Orally Once a day; Duration: 90 days 10/02/2024 Active Tacrolimus 1 MG Capsule TAKE 1 CAPSULE B Y MOUTH EVERY 12 HOURS Oral; Duration: 30 Days Active Mycophenolate Mofetil 500 MG Tablet TAKE 1 TABLET BY MOUTH TWICE A DAY Oral; Duration: 30 Days Active oxyCODONE-Acetaminophen 10-325 MG Tablet TAKE 1 TABLET BY MOUTH 5 TIMES PER DAY NEEDED Oral; Duration: 21 Days Active Levothyroxine Sodium 100 MCG Tablet TAKE 1 TABLET BY MOUTH DAILY Oral; Duration: 90 Days Active buPROPion HCl ER (XL) 300 MG Tablet Extended Release 24 Hour 1 tablet every morning Oral Once a day; Duration: 90 days Active Gabapentin 300 MG Capsule TAKE 1 CAPSULE BY MOUTH THREE TIMES DAILY Oral; Duration: 30 Days Active Immunizations Vaccine Route Administration Date Status Comme nts Influenza virus vaccine, quadrivalent (IIV4), split virus, 0.25 mL dosage Unknown 07/09/2015 Administered Influenza virus vaccine, quadrivalent (IIV4), split virus, 0.25 mL dosage Unknown 06/07/2016 Administered Influenza virus vaccine, quadrivalent (IIV4), split virus, 0.25 mL dosage Unknown 06/18/2017 Administered Influenza virus vaccine, quadrivalent (IIV4), split virus, 0.25 mL dosage Unknown 07/07/2019 Administered Influenza, live, intranasal Unknown 09/10/2021 Administ ered Moderna Covid-19 Vaccine 1st dose Unknown 04/27/2021 Ad ministered Moderna Covid-19 Vaccine 1st dose Unknown 10/11/2021 Ad ministered Social History Tobacco Use: Social History Observation Description Date Details (start date - stop date) Current some da y smoker NA - NA Sex Assigned At : Social History Observation Description Sex Assigned At Female Social History Miscellaneous: Social Info Question Answer Notes Advance Care Planning Are you your own decision-maker Yes Do you have Power of Credit Front Office 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 Yes Tobacco Use: Social Info Question Answer Notes Tobacco Control (Standard) Tobacco use: Current some d ay smoker Section Notes: Substance UseDo you or have you ever smoked tobacco?: Former smokerHow many years have you smoked tobacco?: 20At what age did you start smoking tobacco?: 30How much tobacco do you smoke?: 2 packs per weekWhen did you quit smoking?: 11-15 years since last cigarette (Notes: started back up recently)Do you or have you ever used e-cigarettes or vape?: Never used electronic cigarettesDo you or have you ever used smokeless tobacco?: Never used smokeless tobaccoHow much tobacco do you chew?: noneWhat was the date of your most recent tobacco screening?: 12/20/2023Has tobacco cessation counseling been provided?: NoWhat is your level of alcohol consumption?: OccasionalHow many years have you consumed alcohol?: 35Do you use any illicit or recreational drugs?: NoWhich illicit or recreational drugs have you used?: MarijuanaHave you used IV drugs?: NoWhat is your level of caffeine consumption?: OccasionalEducation and OccupationWhat is the highest grade or level of school you have completed or the highest degree you have received?: Bachelor's degree (e.g., BA, AB, BS)Are you currently employed?: YesWho is your employer?: disabled/First Student/[employer]Marriage and SexualityWhat is your relationship status?: SingleAre you sexually active?: YesDo you use protection during sex?: NoHow many children do you have?: 0Home and EnvironmentAre you a caregiver?: NoDo you have any siblings?: 2Are there any smokers in your house?: NoAre there any guns present in your home?: NoDiet and ExerciseWhat type of diet are you following?: RegularAdvance DirectiveDo you have an advance directive?: YesDo you have a medical power of privacy attorney?: YesPublic Health and TravelHave you been to an area known to be high risk for COVID-19?: NoActivities of Daily LivingAre you able to care for yourself?: YesOtherAccident Related Injury: NoAuto related injury?: NoDrugs Abused: NoneEducation: 4 Year CollegeFamily history of heart disease?: YesHow many days in the past year have you had a heavy drinking consumption (4+ female, 5+ male)?: 12High blood pressure: NoHigh Cholesterol: NoHigh number of sexual partners: YesHistory of inconsistent/no condom use: NoHIV Risk factors: NoMarital status: SinglePast steroid/HgH use?: NoGender Identity and LGBTQ IdentitySexual orientation: Straight or heterosexual Substance UseDo you or have you ever smoked tobacco?: Former smokerHow many years have you smoked tobacco?: 20At what age did you start smoking tobacco?: 30How much tobacco do you smoke?: 2 packs per weekWhen did you quit smoking?: 11-15 years since last cigarette (Notes: started back up recently)Do you or have you ever used e-cigarettes or vape?: Never used electronic cigarettesDo you or have you ever used smokeless tobacco?: Never used smokeless tobaccoHow much tobacco do you chew?: noneWhat was the date of your most recent tobacco screening?: 12/20/2023Has tobacco cessation counseling been provided?: NoWhat is your level of alcohol consumption?: OccasionalHow many years have you consumed alcohol?: 35Do you use any illicit or recreational drugs?: NoWhich illicit or recreational drugs have you used?: MarijuanaHave you used IV drugs?: NoWhat is your level of caffeine consumption?: OccasionalEducation and OccupationWhat is the highest grade or level of school you have completed or the highest degree you have received?: Bachelor's degree (e.g., BA, AB, BS)Are you currently employed?: YesWho is your employer?: disabled/First Student/[employer]Marriage and SexualityWhat is your relationship status?: SingleAre you sexually active?: YesDo you use protection during sex?: NoHow many children do you have?: 0Home and EnvironmentAre you a caregiver?: NoDo you have any siblings?: 2Are there any smokers in your house?: NoAre there any guns present in your home?: NoDiet and ExerciseWhat type of diet are you following?: RegularAdvance DirectiveDo you have an advance directive?: YesDo you have a medical power of privacy attorney?: YesPublic Health and TravelHave you been to an area known to be high risk for COVID-19?: NoActivities of Daily LivingAre you able to care for yourself?: YesOtherAccident Related Injury: NoAuto related injury?: NoDrugs Abused: NoneEducation: 4 Year CollegeFamily history of heart disease?: YesHow many days in the past year have you had a heavy drinking consumption (4+ female, 5+ male)?: 12High blood pressure: NoHigh Cholesterol: NoHigh number of sexual partners: YesHistory of inconsistent/no condom use: NoHIV Risk factors: NoMarital status: SinglePast steroid/HgH use?: NoGender Identity and LGBTQ IdentitySexual orientation: Straight or heterosexual Substance UseDo you or have you ever smoked tobacco?: Former smokerHow many years have you smoked tobacco?: 20At what age did you start smoking tobacco?: 30How much tobacco do you smoke?: 2 packs per weekWhen did you quit smoking?: 11-15 years since last cigarette (Notes: started back up recently)Do you or have you ever used e-cigarettes or vape?: Never used electronic cigarettesDo you or have you ever used smokeless tobacco?: Never used smokeless tobaccoHow much tobacco do you chew?: noneWhat was the date of your most recent tobacco screening?: 12/20/2023Has tobacco cessation counseling been provided?: NoWhat is your level of alcohol consumption?: OccasionalHow many years have you consumed alcohol?: 35Do you use any illicit or recreational drugs?: NoWhich illicit or recreational drugs have you used?: MarijuanaHave you used IV drugs?: NoWhat is your level of caffeine consumption?: OccasionalEducation and OccupationWhat is the highest grade or level of school you have completed or the highest degree you have received?: Bachelor's degree (e.g., BA, AB, BS)Are you currently employed?: YesWho is your employer?: disabled/First Student/[employer]Marriage and SexualityWhat is your relationship status?: SingleAre you sexually active?: YesDo you use protection during sex?: NoHow many children do you have?: 0Home and EnvironmentAre you a caregiver?: NoDo you have any siblings?: 2Are there any smokers in your house?: NoAre there any guns present in your home?: NoDiet and ExerciseWhat type of diet are you following?: RegularAdvance DirectiveDo you have an advance directive?: YesDo you have a medical power of privacy attorney?: YesPublic Health and TravelHave you been to an area known to be high risk for COVID-19?: NoActivities of Daily LivingAre you able to care for yourself?: YesOtherAccident Related Injury: NoAuto related injury?: NoDrugs Abused: NoneEducation: 4 Year CollegeFamily history of heart disease?: YesHow many days in the past year have you had a heavy drinking consumption (4+ female, 5+ male)?: 12High blood pressure: NoHigh Cholesterol: NoHigh number of sexual partners: YesHistory of inconsistent/no condom use: NoHIV Risk factors: NoMarital status: SinglePast steroid/HgH use?: NoGender Identity and LGBTQ IdentitySexual orientation: Straight or heterosexual Substance UseDo you or have you ever smoked tobacco?: Former smokerHow many years have you smoked tobacco?: 20At what age did you start smoking tobacco?: 31How much tobacco do you smoke?: 2 packs per weekWhen did you quit smoking?: 11-15 years since last cigarette (Notes: started back up recently)Do you or have you ever used e-cigarettes or vape?: Never used electronic cigarettesDo you or have you ever used smokeless tobacco?: Never used smokeless tobaccoHow much tobacco do you chew?: noneWhat was the date of your most recent tobacco screening?: 12/20/2023Has tobacco cessation counseling been provided?: NoWhat is your level of alcohol consumption?: OccasionalHow many years have you consumed alcohol?: 35Do you use any illicit or recreational drugs?: NoWhich illicit or recreational drugs have you used?: MarijuanaHave you used IV drugs?: NoWhat is your level of caffeine consumption?: OccasionalEducation and OccupationWhat is the highest grade or level of school you have completed or the highest degree you have received?: Bachelor's degree (e.g., BA, AB, BS)Are you currently employed?: YesWho is your employer?: disabled/First Student/[employer] HouseMarriage and SexualityWhat is your relationship status?: SingleAre you sexually active?: YesDo you use protection during sex?: NoHow many children do you have?: 0Home and EnvironmentAre you a caregiver?: NoDo you have any siblings?: 2Are there any smokers in your house?: NoAre there any guns present in your home?: NoDiet and ExerciseWhat type of diet are you following?: RegularAdvance DirectiveDo you have an advance directive?: YesDo you have a medical power of privacy attorney?: YesPublic Health and TravelHave you been to an area known to be high risk for COVID-19?: NoActivities of Daily LivingAre you able to care for yourself?: YesOtherAccident Related Injury: NoAuto related injury?: NoDrugs Abused: NoneEducation: 4 Year CollegeFamily history of heart disease?: YesHow many days in the past year have you had a heavy drinking consumption (4+ female, 5+ male)?: 12High blood pressure: NoHigh Cholesterol: NoHigh number of sexual partners: YesHistory of inconsistent/no condom use: NoHIV Risk factors: NoMarital status: SinglePast steroid/HgH use?: NoGender Identity and LGBTQ IdentitySexual orientation: Straight or heterosexual Substance UseDo you or have you ever smoked tobacco?: Former smokerHow many years have you smoked tobacco?: 20At what age did you start smoking tobacco?: 31How much tobacco do you smoke?: 2 packs per weekWhen did you quit smoking?: 11-15 years since last cigarette (Notes: started back up recently)Do you or have you ever used e-cigarettes or vape?: Never used electronic cigarettesDo you or have you ever used smokeless tobacco?: Never used smokeless tobaccoHow much tobacco do you chew?: noneWhat was the date of your most recent tobacco screening?: 12/20/2023Has tobacco cessation counseling been provided?: NoWhat is your level of alcohol consumption?: OccasionalHow many years have you consumed alcohol?: 35Do you use any illicit or recreational drugs?: NoWhich illicit or recreational drugs have you used?: MarijuanaHave you used IV drugs?: NoWhat is your level of caffeine consumption?: OccasionalEducation and OccupationWhat is the highest grade or level of school you have completed or the highest degree you have received?: Bachelor's degree (e.g., BA, AB, BS)Are you currently employed?: YesWho is your employer?: disabled/First Student/[employer] HouseMarriage and SexualityWhat is your relationship status?: SingleAre you sexually active?: YesDo you use protection during sex?: NoHow many children do you have?: 0Home and EnvironmentAre you a caregiver?: NoDo you have any siblings?: 2Are there any smokers in your house?: NoAre there any guns present in your home?: NoDiet and ExerciseWhat type of diet are you following?: RegularAdvance DirectiveDo you have an advance directive?: YesDo you have a medical power of privacy attorney?: YesPublic Health and TravelHave you been to an area known to be high risk for COVID-19?: NoActivities of Daily LivingAre you able to care for yourself?: YesOtherAccident Related Injury: NoAuto related injury?: NoDrugs Abused: NoneEducation: 4 Year CollegeFamily history of heart disease?: YesHow many days in the past year have you had a heavy drinking consumption (4+ female, 5+ male)?: 12High blood pressure: NoHigh Cholesterol: NoHigh number of sexual partners: YesHistory of inconsistent/no condom use: NoHIV Risk factors: NoMarital status: SinglePast steroid/HgH use?: NoGender Identity and LGBTQ IdentitySexual orientation: Straight or heterosexual Substance UseDo you or have you ever smoked tobacco?: Former smokerHow many years have you smoked tobacco?: 20At what age did you start smoking tobacco?: 31How much tobacco do you smoke?: 2 packs per weekWhen did you quit smoking?: 11-15 years since last cigarette (Notes: started back up recently)Do you or have you ever used e-cigarettes or vape?: Never used electronic cigarettesDo you or have you ever used smokeless tobacco?: Never used smokeless tobaccoHow much tobacco do you chew?: noneWhat was the date of your most recent tobacco screening?: 12/20/2023Has tobacco cessation counseling been provided?: NoWhat is your level of alcohol consumption?: OccasionalHow many years have you consumed alcohol?: 35Do you use any illicit or recreational drugs?: NoWhich illicit or recreational drugs have you used?: MarijuanaHave you used IV drugs?: NoWhat is your level of caffeine consumption?: OccasionalEducation and OccupationWhat is the highest grade or level of school you have completed or the highest degree you have received?: Bachelor's degree (e.g., BA, AB, BS)Are you currently employed?: YesWho is your employer?: disabled/First Student/[employer] HouseMarriage and SexualityWhat is your relationship status?: SingleAre you sexually active?: YesDo you use protection during sex?: NoHow many children do you have?: 0Home and EnvironmentAre you a caregiver?: NoDo you have any siblings?: 2Are there any smokers in your house?: NoAre there any guns present in your home?: NoDiet and ExerciseWhat type of diet are you following?: RegularAdvance DirectiveDo you have an advance directive?: YesDo you have a medical power of privacy attorney?: YesPublic Health and TravelHave you been to an area known to be high risk for COVID-19?: NoActivities of Daily LivingAre you able to care for yourself?: YesOtherAccident Related Injury: NoAuto related injury?: NoDrugs Abused: NoneEducation: 4 Year CollegeFamily history of heart disease?: YesHow many days in the past year have you had a heavy drinking consumption (4+ female, 5+ male)?: 12High blood pressure: NoHigh Cholesterol: NoHigh number of sexual partners: YesHistory of inconsistent/no condom use: NoHIV Risk factors: NoMarital status: SinglePast steroid/HgH use?: NoGender Identity and LGBTQ IdentitySexual orientation: Straight or heterosexual Substance UseDo you or have you ever smoked tobacco?: Former smokerHow many years have you smoked tobacco?: 20At what age did you start smoking tobacco?: 31How much tobacco do you smoke?: 2 packs per weekWhen did you quit smoking?: 11-15 years since last cigarette (Notes: started back up recently)Do you or have you ever used e-cigarettes or vape?: Never used electronic cigarettesDo you or have you ever used smokeless tobacco?: Never used smokeless tobaccoHow much tobacco do you chew?: noneWhat was the date of your most recent tobacco screening?: 12/20/2023Has tobacco cessation counseling been provided?: NoWhat is your level of alcohol consumption?: OccasionalHow many years have you consumed alcohol?: 35Do you use any illicit or recreational drugs?: NoWhich illicit or recreational drugs have you used?: MarijuanaHave you used IV drugs?: NoWhat is your level of caffeine consumption?: OccasionalEducation and OccupationWhat is the highest grade or level of school you have completed or the highest degree you have received?: Bachelor's degree (e.g., BA, AB, BS)Are you currently employed?: YesWho is your employer?: disabled/First Student/[employer] HouseMarriage and SexualityWhat is your relationship status?: SingleAre you sexually active?: YesDo you use protection during sex?: NoHow many children do you have?: 0Home and EnvironmentAre you a caregiver?: NoDo you have any siblings?: 2Are there any smokers in your house?: NoAre there any guns present in your home?: NoDiet and ExerciseWhat type of diet are you following?: RegularAdvance DirectiveDo you have an advance directive?: YesDo you have a medical power of privacy attorney?: YesPublic Health and TravelHave you been to an area known to be high risk for COVID-19?: NoActivities of Daily LivingAre you able to care for yourself?: YesOtherAccident Related Injury: NoAuto related injury?: NoDrugs Abused: NoneEducation: 4 Year CollegeFamily history of heart disease?: YesHow many days in the past year have you had a heavy drinking consumption (4+ female, 5+ male)?: 12High blood pressure: NoHigh Cholesterol: NoHigh number of sexual partners: YesHistory of inconsistent/no condom use: NoHIV Risk factors: NoMarital status: SinglePast steroid/HgH use?: NoGender Identity and LGBTQ IdentitySexual orientation: Straight or heterosexual Substance UseDo you or have you ever smoked tobacco?: Former smokerHow many years have you smoked tobacco?: 20At what age did you start smoking tobacco?: 31How much tobacco do you smoke?: 2 packs per weekWhen did you quit smoking?: 11-15 years since last cigarette (Notes: started back up recently)Do you or have you ever used e-cigarettes or vape?: Never used electronic cigarettesDo you or have you ever used smokeless tobacco?: Never used smokeless tobaccoHow much tobacco do you chew?: noneWhat was the date of your most recent tobacco screening?: 12/20/2023Has tobacco cessation counseling been provided?: NoWhat is your level of alcohol consumption?: OccasionalHow many years have you consumed alcohol?: 35Do you use any illicit or recreational drugs?: NoWhich illicit or recreational drugs have you used?: MarijuanaHave you used IV drugs?: NoWhat is your level of caffeine consumption?: OccasionalEducation and OccupationWhat is the highest grade or level of school you have completed or the highest degree you have received?: Bachelor's degree (e.g., BA, AB, BS)Are you currently employed?: YesWho is your employer?: disabled/First Student/[employer] HouseMarriage and SexualityWhat is your relationship status?: SingleAre you sexually active?: YesDo you use protection during sex?: NoHow many children do you have?: 0Home and EnvironmentAre you a caregiver?: NoDo you have any siblings?: 2Are there any smokers in your house?: NoAre there any guns present in your home?: NoDiet and ExerciseWhat type of diet are you following?: RegularAdvance DirectiveDo you have an advance directive?: YesDo you have a medical power of privacy attorney?: YesPublic Health and TravelHave you been to an area known to be high risk for COVID-19?: NoActivities of Daily LivingAre you able to care for yourself?: YesOtherAccident Related Injury: NoAuto related injury?: NoDrugs Abused: NoneEducation: 4 Year CollegeFamily history of heart disease?: YesHow many days in the past year have you had a heavy drinking consumption (4+ female, 5+ male)?: 12High blood pressure: NoHigh Cholesterol: NoHigh number of sexual partners: YesHistory of inconsistent/no condom use: NoHIV Risk factors: NoMarital status: SinglePast steroid/HgH use?: NoGender Identity and LGBTQ IdentitySexual orientation: Straight or heterosexual Substance UseDo you or have you ever smoked tobacco?: Former smokerHow many years have you smoked tobacco?: 20At what age did you start smoking tobacco?: 31How much tobacco do you smoke?: 2 packs per weekWhen did you quit smoking?: 11-15 years since last cigarette (Notes: started back up recently)Do you or have you ever used e-cigarettes or vape?: Never used electronic cigarettesDo you or have you ever used smokeless tobacco?: Never used smokeless tobaccoHow much tobacco do you chew?: noneWhat was the date of your most recent tobacco screening?: 12/20/2023Has tobacco cessation counseling been provided?: NoWhat is your level of alcohol consumption?: OccasionalHow many years have you consumed alcohol?: 35Do you use any illicit or recreational drugs?: NoWhich illicit or recreational drugs have you used?: MarijuanaHave you used IV drugs?: NoWhat is your level of caffeine consumption?: OccasionalEducation and OccupationWhat is the highest grade or level of school you have completed or the highest degree you have received?: Bachelor's degree (e.g., BA, AB, BS)Are you currently employed?: YesWho is your employer?: disabled/First Student/[employer] HouseMarriage and SexualityWhat is your relationship status?: SingleAre you sexually active?: YesDo you use protection during sex?: NoHow many children do you have?: 0Home and EnvironmentAre you a caregiver?: NoDo you have any siblings?: 2Are there any smokers in your house?: NoAre there any guns present in your home?: NoDiet and ExerciseWhat type of diet are you following?: RegularAdvance DirectiveDo you have an advance directive?: YesDo you have a medical power of privacy attorney?: YesPublic Health and TravelHave you been to an area known to be high risk for COVID-19?: NoActivities of Daily LivingAre you able to care for yourself?: YesOtherAccident Related Injury: NoAuto related injury?: NoDrugs Abused: NoneEducation: 4 Year CollegeFamily history of heart disease?: YesHow many days in the past year have you had a heavy drinking consumption (4+ female, 5+ male)?: 12High blood pressure: NoHigh Cholesterol: NoHigh number of sexual partners: YesHistory of inconsistent/no condom use: NoHIV Risk factors: NoMarital status: SinglePast steroid/HgH use?: NoGender Identity and LGBTQ IdentitySexual orientation: Straight or heterosexual Substance UseDo you or have you ever smoked tobacco?: Former smokerHow many years have you smoked tobacco?: 20At what age did you start smoking tobacco?: 30How much tobacco do you smoke?: 2 packs per weekWhen did you quit smoking?: 11-15 years since last cigarette (Notes: started back up recently)Do you or have you ever used e-cigarettes or vape?: Never used electronic cigarettesDo you or have you ever used smokeless tobacco?: Never used smokeless tobaccoHow much tobacco do you chew?: noneWhat was the date of your most recent tobacco screening?: 12/20/2023Has tobacco cessation counseling been provided?: NoWhat is your level of alcohol consumption?: OccasionalHow many years have you consumed alcohol?: 35Do you use any illicit or recreational drugs?: NoWhich illicit or recreational drugs have you used?: MarijuanaHave you used IV drugs?: NoWhat is your level of caffeine consumption?: OccasionalEducation and OccupationWhat is the highest grade or level of school you have completed or the highest degree you have received?: Bachelor's degree (e.g., BA, AB, BS)Are you currently employed?: YesWho is your employer?: disabled/[employer]Marriage and SexualityWhat is your relationship status?: SingleAre you sexually active?: YesDo you use protection during sex?: NoHow many children do you have?: 0Home and EnvironmentAre you a caregiver?: NoDo you have any siblings?: 2Are there any smokers in your house?: NoAre there any guns present in your home?: NoDiet and ExerciseWhat type of diet are you following?: RegularAdvance DirectiveDo you have an advance directive?: YesDo you have a medical power of privacy attorney?: YesPublic Health and TravelHave you been to an area known to be high risk for COVID-19?: NoActivities of Daily LivingAre you able to care for yourself?: YesOtherAccident Related Injury: NoAuto related injury?: NoDrugs Abused: NoneEducation: 4 Year CollegeFamily history of heart disease?: YesHow many days in the past year have you had a heavy drinking consumption (4+ female, 5+ male)?: 12High blood pressure: NoHigh Cholesterol: NoHigh number of sexual partners: YesHistory of inconsistent/no condom use: NoHIV Risk factors: NoMarital status: SinglePast steroid/HgH use?: NoGender Identity and LGBTQ IdentitySexual orientation: Straight or heterosexual Substance UseDo you or have you ever smoked tobacco?: Former smokerHow many years have you smoked tobacco?: 20At what age did you start smoking tobacco?: 30How much tobacco do you smoke?: 2 packs per weekWhen did you quit smoking?: 11-15 years since last cigarette (Notes: started back up recently)Do you or have you ever used e-cigarettes or vape?: Never used electronic cigarettesDo you or have you ever used smokeless tobacco?: Never used smokeless tobaccoHow much tobacco do you chew?: noneWhat was the date of your most recent tobacco screening?: 12/20/2023Has tobacco cessation counseling been provided?: NoWhat is your level of alcohol consumption?: OccasionalHow many years have you consumed alcohol?: 35Do you use any illicit or recreational drugs?: NoWhich illicit or recreational drugs have you used?: MarijuanaHave you used IV drugs?: NoWhat is your level of caffeine consumption?: OccasionalEducation and OccupationWhat is the highest grade or level of school you have completed or the highest degree you have received?: Bachelor's degree (e.g., BA, AB, BS)Are you currently employed?: YesWho is your employer?: disabled/[employer]Marriage and SexualityWhat is your relationship status?: SingleAre you sexually active?: YesDo you use protection during sex?: NoHow many children do you have?: 0Home and EnvironmentAre you a caregiver?: NoDo you have any siblings?: 2Are there any smokers in your house?: NoAre there any guns present in your home?: NoDiet and ExerciseWhat type of diet are you following?: RegularAdvance DirectiveDo you have an advance directive?: YesDo you have a medical power of privacy attorney?: YesPublic Health and TravelHave you been to an area known to be high risk for COVID-19?: NoActivities of Daily LivingAre you able to care for yourself?: YesOtherAccident Related Injury: NoAuto related injury?: NoDrugs Abused: NoneEducation: 4 Year CollegeFamily history of heart disease?: YesHow many days in the past year have you had a heavy drinking consumption (4+ female, 5+ male)?: 12High blood pressure: NoHigh Cholesterol: NoHigh number of sexual partners: YesHistory of inconsistent/no condom use: NoHIV Risk factors: NoMarital status: SinglePast steroid/HgH use?: NoGender Identity and LGBTQ IdentitySexual orientation: Straight or heterosexual Substance UseDo you or have you ever smoked tobacco?: Former smokerHow many years have you smoked tobacco?: 20At what age did you start smoking tobacco?: 30How much tobacco do you smoke?: 2 packs per weekWhen did you quit smoking?: 11-15 years since last cigarette (Notes: started back up recently)Do you or have you ever used e-cigarettes or vape?: Never used electronic cigarettesDo you or have you ever used smokeless tobacco?: Never used smokeless tobaccoHow much tobacco do you chew?: noneWhat was the date of your most recent tobacco screening?: 12/20/2023Has tobacco cessation counseling been provided?: NoWhat is your level of alcohol consumption?: OccasionalHow many years have you consumed alcohol?: 35Do you use any illicit or recreational drugs?: NoWhich illicit or recreational drugs have you used?: MarijuanaHave you used IV drugs?: NoWhat is your level of caffeine consumption?: OccasionalEducation and OccupationWhat is the highest grade or level of school you have completed or the highest degree you have received?: Bachelor's degree (e.g., BA, AB, BS)Are you currently employed?: YesWho is your employer?: disabled/[employer]Marriage and SexualityWhat is your relationship status?: SingleAre you sexually active?: YesDo you use protection during sex?: NoHow many children do you have?: 0Home and EnvironmentAre you a caregiver?: NoDo you have any siblings?: 2Are there any smokers in your house?: NoAre there any guns present in your home?: NoDiet and ExerciseWhat type of diet are you following?: RegularAdvance DirectiveDo you have an advance directive?: YesDo you have a medical power of privacy attorney?: YesPublic Health and TravelHave you been to an area known to be high risk for COVID-19?: NoActivities of Daily LivingAre you able to care for yourself?: YesOtherAccident Related Injury: NoAuto related injury?: NoDrugs Abused: NoneEducation: 4 Year CollegeFamily history of heart disease?: YesHow many days in the past year have you had a heavy drinking consumption (4+ female, 5+ male)?: 12High blood pressure: NoHigh Cholesterol: NoHigh number of sexual partners: YesHistory of inconsistent/no condom use: NoHIV Risk factors: NoMarital status: SinglePast steroid/HgH use?: NoGender Identity and LGBTQ IdentitySexual orientation: Straight or heterosexual Substance UseDo you or have you ever smoked tobacco?: Former smokerHow many years have you smoked tobacco?: 20At what age did you start smoking tobacco?: 30How much tobacco do you smoke?: 2 packs per weekWhen did you quit smoking?: 11-15 years since last cigarette (Notes: started back up recently)Do you or have you ever used e-cigarettes or vape?: Never used electronic cigarettesDo you or have you ever used smokeless tobacco?: Never used smokeless tobaccoHow much tobacco do you chew?: noneWhat was the date of your most recent tobacco screening?: 12/20/2023Has tobacco cessation counseling been provided?: NoWhat is your level of alcohol consumption?: OccasionalHow many years have you consumed alcohol?: 35Do you use any illicit or recreational drugs?: NoWhich illicit or recreational drugs have you used?: MarijuanaHave you used IV drugs?: NoWhat is your level of caffeine consumption?: OccasionalEducation and OccupationWhat is the highest grade or level of school you have completed or the highest degree you have received?: Bachelor's degree (e.g., BA, AB, BS)Are you currently employed?: YesWho is your employer?: disabled/[employer] Student/[employer] HouseMarriage and SexualityWhat is your relationship status?: SingleAre you sexually active?: YesDo you use protection during sex?: NoHow many children do you have?: 0Home and EnvironmentAre you a caregiver?: NoDo you have any siblings?: 2Are there any smokers in your house?: NoAre there any guns present in your home?: NoDiet and ExerciseWhat type of diet are you following?: RegularAdvance DirectiveDo you have an advance directive?: YesDo you have a medical power of privacy attorney?: YesPublic Health and TravelHave you been to an area known to be high risk for COVID-19?: NoActivities of Daily LivingAre you able to care for yourself?: YesOtherAccident Related Injury: NoAuto related injury?: NoDrugs Abused: NoneEducation: 4 Year CollegeFamily history of heart disease?: YesHow many days in the past year have you had a heavy drinking consumption (4+ female, 5+ male)?: 12High blood pressure: NoHigh Cholesterol: NoHigh number of sexual partners: YesHistory of inconsistent/no condom use: NoHIV Risk factors: NoMarital status: SinglePast steroid/HgH use?: NoGender Identity and LGBTQ IdentitySexual orientation: Straight or heterosexual Problems Problem Type SNOMED Code ICD Code Onset Dates Problem Status W/U Status Risk Notes Problem Mild recurrent major depression (47535485) Major depressive disorder, recurrent, mild (F33.0) Active confirmed Problem Generalized anxiety disorder (87732865) Generalized anxiety disorder (F41.1) Active confirmed Problem Posttraumatic stress disorder (60751771) Post-traumatic stress disorder, chronic (F43.12) 01/23/20 24 Active confirmed Problem Primary insomnia (5983285) Primary insomnia (F51.01) 01/14/20 24 Active confirmed Problem Attention deficit hyperactivity disorder, 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, predominantly inattentive type (F90.0) 01/23/20 24 Active confirmed Problem Essential hypertension (84749229) Essential hypertension (I10) Active confirmed Vital Signs Heart Rate 108 /min 10/02/2024 Height-cm 162.56 cm 10/02/2024 Blood pressure diastolic 75 mm Hg 10/02/2024 Weight-kg 56.7 kg 10/02/2024 Height 64.00 in 10/02/2024 Blood pressure systolic 104 mm Hg 10/02/2024 Weight 125 lbs 10/02/2024 BMI 21.45 kg/m2 10/02/2024 Encounters Encounter Location Date Provider Diagnosis [facility] [address] [address] 07/17/2024 Rachel Forman [facility] [address] [facility] [address] [place] [address] 08/14/2024 Rachel Forman [facility] [address] [address] 07/24/2024 [place] Major depressive disorder, recurrent, mild F33.0 ; Generalized anxiety disorder F41.1 ; Post-traumatic stress disorder, chronic F43.12 ; Attention-deficit hyperactivity disorder, predominantly inattentive type F90.0 and Primary insomnia F51.[address] [address] 08/04/2024 Rachel Dickson Major depressive disorder, recurrent severe without psychotic features F33.2 ; Generalized anxiety disorder F41.1 ; Post-traumatic stress disorder, chronic F43.12 and Attention-deficit hyperactivity disorder, predominantly inattentive type F90.0 [place] [address] [facility] [address] [place] [address] 08/21/2024 [place] Major depressive disorder, recurrent, mild F33.0 ; Generalized anxiety disorder F41.1 ; Post-traumatic stress disorder, chronic F43.12 ; Attention-deficit hyperactivity disorder, predominantly inattentive type F90.0 ; Primary insomnia F51.01 and Essential hypertension I10 [place] [address] [address] 09/08/2024 Rachel Dickson Major depressive disorder, recurrent, mild F33.0 ; Generalized anxiety disorder F41.1 ; Post-traumatic stress disorder, chronic F43.12 and Attention-deficit hyperactivity disorder, predominantly inattentive type F90.0 [place] [address] [address] 09/25/2024 Rachel Dickson Major depressive disorder, recurrent, mild F33.0 ; Generalized anxiety disorder F41.1 ; Post-traumatic stress disorder, chronic F43.12 and Attention-deficit hyperactivity disorder, predominantly inattentive type F90.0 [place] [address] [address] 10/02/2024 [place] Major depressive disorder, recurrent, mild F33.0 ; Generalized anxiety disorder F41.1 ; Post-traumatic stress disorder, chronic F43.12 ; Attention-deficit hyperactivity disorder, predominantly inattentive type F90.0 ; Primary insomnia F51.01 and Essential hypertension I10 [facility] [address] [facility] [address] [address] 10/06/2024 Rachel Dickson Major depressive disorder, recurrent, mild F33.0 ; Generalized anxiety disorder F41.1 ; Post-traumatic stress disorder, chronic F43.12 and Attention-deficit hyperactivity disorder, predominantly inattentive type F90.0 [facility] [address] [address] 10/21/2024 Rachel Dickson Major depressive disorder, recurrent, mild F33.0 ; Generalized anxiety disorder F41.1 ; Post-traumatic stress disorder, chronic F43.12 and Attention-deficit hyperactivity disorder, predominantly inattentive type F90.0 [facility] [address] [address] [facility] [address] [address] 08/06/2024 [facility] [address] [facility] [address] [address] 04/07/2025 [place] Assessments Encounter Date Diagnosis (ICD Code) Assessment Notes Treatment Notes Treatment Clinical Notes Section Notes 10/21/2024 Major depressive disorder, recurrent, mild (ICD-10 - F33.0) 08/21/2024 Major depressive disorder, recurrent, mild (ICD-10 - F33.0) Major Depressive Disorder, treatment-resista nt - Plan: - Continue duloxetine as prescribed. - Initiate Transcranial Magnetic Stimulation (TMS) therapy: - 36 sessions in total, 4-5 times a week, each lasting 30 minutes. - Taper off to three sessions a week after 30 treatments, then to one session. - Total duration of treatment: 9-10 weeks. - Monitor patient's progress and response to TMS therapy. - Address patient's questions about scheduling flexibility, allowing for short breaks if necessary. - Schedule a follow-up appointment in one month to assess the patient's response to treatment. Stress Management - Plan: - Discuss potential coping strategies for relationship pressures and holiday stress. - Consider referral to therapy or counseling if needed. Insurance Coverage and Deductible - Plan: - Patient to verify her insurance deductible and coverage for TMS therapy. - Assist the patient with any necessary paperwork or insurance-related issues during the follow-up appointment if the treatment has not started. Informed Consent for TMS Therapy - Plan: - Obtain informed consent from the patient before initiating TMS therapy. - Educate the patient about the risks, benefits, and potential side effects of TMS therapy. Follow-up Appointment - Plan: - Schedule a follow-up appointment in one month to assess the patient's response to treatment, discuss any insurance-related issues, and address any concerns or questions the patient may have. 09/08/2024 Major depressive disorder, recurrent, mild (ICD-10 - F33.0) 09/08/2024 Generalized anxiety disorder (ICD-10 - F41.1) 10/06/2024 Major depressive disorder, recurrent, mild (ICD-10 - F33.0) 10/02/2024 Major depressive disorder, recurrent, mild (ICD-10 - F33.0) 09/25/2024 Major depressive disorder, recurrent, mild (ICD-10 - F33.0) 08/04/2024 Major depressive disorder, recurrent severe without psychotic features (ICD-10 - F33.2) 07/24/2024 Major depressive disorder, recurrent, mild (ICD-10 - F33.0) Depression - Assessment: Patient reports moderate depression with a persistently elevated PHQ-9 score. Patient reports feeling down and depressed most days, not excited about the future despite positive life changes. - Plan: - Continue duloxetine 60 mg twice a day and bupropion XL 300 mg. Send a 90-day prescription. - Reassess in one month. - Consider TMS or Spravato (esketamine) as additional treatment options for depression. - Check insurance coverage for Spravato and discuss with the patient if approved. 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 - Plan: - Encourage the patient to seek seasonal employment and focus on time management skills. Blood Pressure Management - Assessment: Patient reports stopping clonidine as per their modern and contemporary art curator's advice. Current blood pressure is reported as good. - Plan: - Follow the modern and contemporary art curator's recommendations for blood pressure management. - Monitor the patient's blood pressure. Follow-up - Plan: - Schedule a follow-up appointment in one month to reassess the patient's depression and discuss potential TMS or Spravato treatment if insurance approval is obtained. - Patient to complete additional paperwork before leaving. Additional Notes - Assessment: Patient expresses interest in practicing meditation for mental relaxation but finds it challenging to maintain consistency. Patient mentions having a new boyfriend as a positive life change. 07/24/2024 Generalized anxiety disorder (ICD-10 - F41.1) Depression - Assessment: Patient reports moderate depression with a persistently elevated PHQ-9 score. Patient reports feeling down and depressed most days, not excited about the future despite positive life changes. - Plan: - Continue duloxetine 60 mg twice a day and bupropion XL 300 mg. Send a 90-day prescription. - Reassess in one month. - Consider TMS or Spravato (esketamine) as additional treatment options for depression. - Check insurance coverage for Spravato and discuss with the patient if approved. 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 Patient considering seasonal work at retail [employer] for employee discounts during holidays. - Plan: - Encourage the patient to seek seasonal employment and focus on time management skills. Blood Pressure Management - Assessment: Patient reports stopping clonidine as per their modern and contemporary art curator's advice. Current blood pressure is reported as good. - Plan: - Follow the modern and contemporary art curator's recommendations for blood pressure management. - Monitor the patient's blood pressure. Follow-up - Plan: - Schedule a follow-up appointment in one month to reassess the patient's depression and discuss potential TMS or Spravato treatment if insurance approval is obtained. - Patient to complete additional paperwork before leaving. Additional Notes - Assessment: Patient expresses interest in practicing meditation for mental relaxation but finds it challenging to maintain consistency. Patient mentions having a new boyfriend as a positive life change. 08/04/2024 Generalized anxiety disorder (ICD-10 - F41.1) 09/25/2024 Generalized anxiety disorder (ICD-10 - F41.1) 10/02/2024 Generalized anxiety disorder (ICD-10 - F41.1) 10/06/2024 Generalized anxiety disorder (ICD-10 - F41.1) 09/08/2024 Post-traumatic stress disorder, chronic (ICD-10 - F43.12) 08/21/2024 Generalized anxiety disorder (ICD-10 - F41.1) Major Depressive Disorder, treatment-resista nt - Plan: - Continue duloxetine as prescribed. - Initiate Transcranial Magnetic Stimulation (TMS) therapy: - 36 sessions in total, 4-5 times a week, each lasting 30 minutes. - Taper off to three sessions a week after 30 treatments, then to one session. - Total duration of treatment: 9-10 weeks. - Monitor patient's progress and response to TMS therapy. - Address patient's questions about scheduling flexibility, allowing for short breaks if necessary. - Schedule a follow-up appointment in one month to assess the patient's response to treatment. Stress Management - Plan: - Discuss potential coping strategies for relationship pressures and holiday stress. - Consider referral to therapy or counseling if needed. Insurance Coverage and Deductible - Plan: - Patient to verify her insurance deductible and coverage for TMS therapy. - Assist the patient with any necessary paperwork or insurance-related issues during the follow-up appointment if the treatment has not started. Informed Consent for TMS Therapy - Plan: - Obtain informed consent from the patient before initiating TMS therapy. - Educate the patient about the risks, benefits, and potential side effects of TMS therapy. Follow-up Appointment - Plan: - Schedule a follow-up appointment in one month to assess the patient's response to treatment, discuss any insurance-related issues, and address any concerns or questions the patient may have. 10/21/2024 Generalized anxiety disorder (ICD-10 - F41.1) 10/21/2024 Post-traumatic stress disorder, chronic (ICD-10 - F43.12) 08/21/2024 Post-traumatic stress disorder, chronic (ICD-10 - F43.12) Major Depressive Disorder, treatment-resista nt - Plan: - Continue duloxetine as prescribed. - Initiate Transcranial Magnetic Stimulation (TMS) therapy: - 36 sessions in total, 4-5 times a week, each lasting 30 minutes. - Taper off to three sessions a week after 30 treatments, then to one session. - Total duration of treatment: 9-10 weeks. - Monitor patient's progress and response to TMS therapy. - Address patient's questions about scheduling flexibility, allowing for short breaks if necessary. - Schedule a follow-up appointment in one month to assess the patient's response to treatment. Stress Management - Plan: - Discuss potential coping strategies for relationship pressures and holiday stress. - Consider referral to therapy or counseling if needed. Insurance Coverage and Deductible - Plan: - Patient to verify her insurance deductible and coverage for TMS therapy. - Assist the patient with any necessary paperwork or insurance-related issues during the follow-up appointment if the treatment has not started. Informed Consent for TMS Therapy - Plan: - Obtain informed consent from the patient before initiating TMS therapy. - Educate the patient about the risks, benefits, and potential side effects of TMS therapy. Follow-up Appointment - Plan: - Schedule a follow-up appointment in one month to assess the patient's response to treatment, discuss any insurance-related issues, and address any concerns or questions the patient may have. 09/08/2024 Attention-defici t hyperactivity disorder, predominantly inattentive type (ICD-10 - F90.0) 10/06/2024 Post-traumatic stress disorder, chronic (ICD-10 - F43.12) 10/02/2024 Post-traumatic stress disorder, chronic (ICD-10 - F43.12) 09/25/2024 Post-traumatic stress disorder, chronic (ICD-10 - F43.12) 08/04/2024 Post-traumatic stress disorder, chronic (ICD-10 - F43.12) 07/24/2024 Post-traumatic stress disorder, chronic (ICD-10 - F43.12) Depression - Assessment: Patient reports moderate depression with a persistently elevated PHQ-9 score. Patient reports feeling down and depressed most days, not excited about the future despite positive life changes. - Plan: - Continue duloxetine 60 mg twice a day and bupropion XL 300 mg. Send a 90-day prescription. - Reassess in one month. - Consider TMS or Spravato (esketamine) as additional treatment options for depression. - Check insurance coverage for Spravato and discuss with the patient if approved. 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 - Plan: - Encourage the patient to seek seasonal employment and focus on time management skills. Blood Pressure Management - Assessment: Patient reports stopping clonidine as per their modern and contemporary art curator's advice. Current blood pressure is reported as good. - Plan: - Follow the modern and contemporary art curator's recommendations for blood pressure management. - Monitor the patient's blood pressure. Follow-up - Plan: - Schedule a follow-up appointment in one month to reassess the patient's depression and discuss potential TMS or Spravato treatment if insurance approval is obtained. - Patient to complete additional paperwork before leaving. Additional Notes - Assessment: Patient expresses interest in practicing meditation for mental relaxation but finds it challenging to maintain consistency. Patient mentions having a new boyfriend as a positive life change. 07/24/2024 Attention-defici t hyperactivity disorder, predominantly inattentive type (ICD-10 - F90.0) Depression - Assessment: Patient reports moderate depression with a persistently elevated PHQ-9 score. Patient reports feeling down and depressed most days, not excited about the future despite positive life changes. - Plan: - Continue duloxetine 60 mg twice a day and bupropion XL 300 mg. Send a 90-day prescription. - Reassess in one month. - Consider TMS or Spravato (esketamine) as additional treatment options for depression. - Check insurance coverage for Spravato and discuss with the patient if approved. 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 - Plan: - Encourage the patient to seek seasonal employment and focus on time management skills. Blood Pressure Management - Assessment: Patient reports stopping clonidine as per their modern and contemporary art curator's advice. Current blood pressure is reported as good. - Plan: - Follow the modern and contemporary art curator's recommendations for blood pressure management. - Monitor the patient's blood pressure. Follow-up - Plan: - Schedule a follow-up appointment in one month to reassess the patient's depression and discuss potential TMS or Spravato treatment if insurance approval is obtained. - Patient to complete additional paperwork before leaving. Additional Notes - Assessment: Patient expresses interest in practicing meditation for mental relaxation but finds it challenging to maintain consistency. Patient mentions having a new boyfriend as a positive life change. 08/04/2024 Attention-defici t hyperactivity disorder, predominantly inattentive type (ICD-10 - F90.0) 09/25/2024 Attention-defici t hyperactivity disorder, predominantly inattentive type (ICD-10 - F90.0) 10/02/2024 Attention-defici t hyperactivity disorder, predominantly inattentive type (ICD-10 - F90.0) 08/21/2024 Attention-defici t hyperactivity disorder, predominantly inattentive type (ICD-10 - F90.0) Major Depressive Disorder, treatment-resista nt - Plan: - Continue duloxetine as prescribed. - Initiate Transcranial Magnetic Stimulation (TMS) therapy: - 36 sessions in total, 4-5 times a week, each lasting 30 minutes. - Taper off to three sessions a week after 30 treatments, then to one session. - Total duration of treatment: 9-10 weeks. - Monitor patient's progress and response to TMS therapy. - Address patient's questions about scheduling flexibility, allowing for short breaks if necessary. - Schedule a follow-up appointment in one month to assess the patient's response to treatment. Stress Management - Plan: - Discuss potential coping strategies for relationship pressures and holiday stress. - Consider referral to therapy or counseling if needed. Insurance Coverage and Deductible - Plan: - Patient to verify her insurance deductible and coverage for TMS therapy. - Assist the patient with any necessary paperwork or insurance-related issues during the follow-up appointment if the treatment has not started. Informed Consent for TMS Therapy - Plan: - Obtain informed consent from the patient before initiating TMS therapy. - Educate the patient about the risks, benefits, and potential side effects of TMS therapy. Follow-up Appointment - Plan: - Schedule a follow-up appointment in one month to assess the patient's response to treatment, discuss any insurance-related issues, and address any concerns or questions the patient may have. 10/06/2024 Attention-defici t hyperactivity disorder, predominantly inattentive type (ICD-10 - F90.0) 10/21/2024 Attention-defici t hyperactivity disorder, predominantly inattentive type (ICD-10 - F90.0) 08/21/2024 Primary insomnia (ICD-10 - F51.01) Major Depressive Disorder, treatment-resista nt - Plan: - Continue duloxetine as prescribed. - Initiate Transcranial Magnetic Stimulation (TMS) therapy: - 36 sessions in total, 4-5 times a week, each lasting 30 minutes. - Taper off to three sessions a week after 30 treatments, then to one session. - Total duration of treatment: 9-10 weeks. - Monitor patient's progress and response to TMS therapy. - Address patient's questions about scheduling flexibility, allowing for short breaks if necessary. - Schedule a follow-up appointment in one month to assess the patient's response to treatment. Stress Management - Plan: - Discuss potential coping strategies for relationship pressures and holiday stress. - Consider referral to therapy or counseling if needed. Insurance Coverage and Deductible - Plan: - Patient to verify her insurance deductible and coverage for TMS therapy. - Assist the patient with any necessary paperwork or insurance-related issues during the follow-up appointment if the treatment has not started. Informed Consent for TMS Therapy - Plan: - Obtain informed consent from the patient before initiating TMS therapy. - Educate the patient about the risks, benefits, and potential side effects of TMS therapy. Follow-up Appointment - Plan: - Schedule a follow-up appointment in one month to assess the patient's response to treatment, discuss any insurance-related issues, and address any concerns or questions the patient may have. 10/02/2024 Primary insomnia (ICD-10 - F51.01) 07/24/2024 Primary insomnia (ICD-10 - F51.01) Depression - Assessment: Patient reports moderate depression with a persistently elevated PHQ-9 score. Patient reports feeling down and depressed most days, not excited about the future despite positive life changes. - Plan: - Continue duloxetine 60 mg twice a day and bupropion XL 300 mg. Send a 90-day prescription. - Reassess in one month. - Consider TMS or Spravato (esketamine) as additional treatment options for depression. - Check insurance coverage for Spravato and discuss with the patient if approved. 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 - Plan: - Encourage the patient to seek seasonal employment and focus on time management skills. Blood Pressure Management - Assessment: Patient reports stopping clonidine as per their modern and contemporary art curator's advice. Current blood pressure is reported as good. - Plan: - Follow the modern and contemporary art curator's recommendations for blood pressure management. - Monitor the patient's blood pressure. Follow-up - Plan: - Schedule a follow-up appointment in one month to reassess the patient's depression and discuss potential TMS or Spravato treatment if insurance approval is obtained. - Patient to complete additional paperwork before leaving. Additional Notes - Assessment: Patient expresses interest in practicing meditation for mental relaxation but finds it challenging to maintain consistency. Patient mentions having a new boyfriend as a positive life change. 10/02/2024 Essential hypertension (ICD-10 - I10) 08/21/2024 Essential hypertension (ICD-10 - I10) Major Depressive Disorder, treatment-resista nt - Plan: - Continue duloxetine as prescribed. - Initiate Transcranial Magnetic Stimulation (TMS) therapy: - 36 sessions in total, 4-5 times a week, each lasting 30 minutes. - Taper off to three sessions a week after 30 treatments, then to one session. - Total duration of treatment: 9-10 weeks. - Monitor patient's progress and response to TMS therapy. - Address patient's questions about scheduling flexibility, allowing for short breaks if necessary. - Schedule a follow-up appointment in one month to assess the patient's response to treatment. Stress Management - Plan: - Discuss potential coping strategies for relationship pressures and holiday stress. - Consider referral to therapy or counseling if needed. Insurance Coverage and Deductible - Plan: - Patient to verify her insurance deductible and coverage for TMS therapy. - Assist the patient with any necessary paperwork or insurance-related issues during the follow-up appointment if the treatment has not started. Informed Consent for TMS Therapy - Plan: - Obtain informed consent from the patient before initiating TMS therapy. - Educate the patient about the risks, benefits, and potential side effects of TMS therapy. Follow-up Appointment - Plan: - Schedule a follow-up appointment in one month to assess the patient's response to treatment, discuss any insurance-related issues, and address any concerns or questions the patient may have. 08/04/2024 Other Client reports her job is over for the year and will start again in the spring. She and her s/o will be going to [place] this . She states they are doing better of late. She states her biggest issue continues to be staying on task. Therapist actively listened to client and asked questions for clarification. Therapist then utilized a solution focued intervention to help client explore strategies to be more focused on the task at hand (make a list of 3 things to do the next day, before going to bed. Next day, decide which one of the 3 is the priority and take ample breaks while completing the task). 09/08/2024 Other Client reports her s/o is moving in as there are new owners for his apartment complex and they are evicting everyone so they can remodel. Client states it is sooner than either of them expected. She states she has not been feeling well. Mildy under the weather on a continual basis. She states her doctor has change some of he medications related to her heart issues. She states her sister had another surgery on her back and is recovering well from it. Therapist actively listened to client and utilized a a supportive intervention by helping client maintain her current level of functioning through the showing of acceptance. ROXANNE=12 moderate 09/25/2024 Other Client reports she and s/o are in the process of moving s/o into client's home. They continue to work on the relationship. She focused on how she handles conflict with him. She states he has a tendency to raise his voice, and she cannot stand this. She has became good at getting him to lower his voice and she waits until she is calm before responding to his frustration. Therapist actively listened to client and utilized a cognitive behavioral intervention to help client explore strategies to expand her ability to handle conflict with her s/o. PHQ=13 moderate ROXANNE=13 moderate 10/02/2024 Other Arthritis - Assessment: Patient reports increased joint pain in the last few days, affecting all joints simultaneously. Pain is not migratory but affects all joints at once. - Plan: - Continue current pain management regimen. - Encourage the patient to monitor symptoms and report any significant changes or worsening of pain. Depression - Assessment: Patient is experiencing increased stress and mood disturbances due to a significant life change (moving and boyfriend moving in). Patient reports feeling aggravated and having trouble adjusting to the new living situation. Currently on duloxetine 60 mg daily, twice a day, and bupropion. - Plan: - Add aripiprazole 2 mg once a day as an augmentation therapy for depression. - Reassess mood and response to treatment in 2 to 3 weeks. ADHD - Assessment: Patient is not currently taking methylphenidate due to failed urine tests (cannabis use) and difficulty obtaining a prescription from their family doctor. - Plan: - Continue to monitor the patient's ADHD symptoms and discuss alternative treatment options if necessary. TMS (Transcranial Magnetic Stimulation) Approval - Assessment: Patient has been approved for TMS treatment. - Plan: - Refer the patient to the financial counselor (Nicolle) to discuss the financial responsibility and potential scheduling of TMS treatment if the patient decides to proceed. Medication Management - Assessment: Patient is currently on duloxetine and bupropion, with prescriptions lasting until October 24. Aripiprazole 2 mg once daily added as augmentation therapy for depression. - Plan: - Continue current medications and monitor for any side effects or changes in symptoms. - Patient to follow up in 2-3 weeks to assess response to aripiprazole. 10/06/2024 Other Client reports her furnace went out (it was original to the house). She states they got by with space heaters for 3 days before they could get it fixed. Her bf is completely out of his apartment and has all of his stuff at client's home. She states the getting everything settled in the house which client reports has mentally exhausted her. She also reports they are still working small issues out. Therapist actively listened to client and utilized a cognitive behavioral intervention to help client explore strategies to reduce her anxiety level (making time for calming activities and time for herself). 10/21/2024 Other Client found o ut last week that she has cancer in her kidney. She has been told that one of the options, and also the one she chose, is to freeze it and it will be reabsorb into the body. She reports she should get a call this week to schedule this procedure. She states that she and bf have completed all the moving of bf's stuff from his apartment to her home. Therapist actively listened to client and asked questions for clarification. Therapist then utilized a cognitive behavioral intervention to help client explore strategies to miimize her anxiety related to the upcoming procedure and adjusting to bf being permanently moved in. Plan Of Treatment No Information Insurance Providers Payer Name Payer Address Payer Phone Subscriber Number Group Number Insured Name Patient Relationship to Insured Coverage Start Date Coverage End Date [employer] [address] [place] [phone] [id number] VICTOR HUGO SIMPSON Self - patient is the insured Medical (General) History Medical History History ICD Code Problems: Attention deficit hyperactivit y disorder Chronic post-traumatic stress disorder Generalized anxiety disorder Hypothyroidism Low back pain Moderate recurrent major depression Primary insomnia Restless legs Severe recurrent major depression withou t psychotic features , Surgical History Surgery Date(Month/Year) Heart surgery Subdural hematoma (31727) Heart surgery 09/10/2009 Heart surgery 09/10/2014 Heart surgery 12/09/2004 Other 01/08/1987 Cosmetic surgery 01/08/2015 Other 02/08/1975 Any surgical history 04/06/2017 Heart surgery 04/06/2017 Heart surgery 04/06/2018 Heart surgery 04/09/1970 Other 04/10/1970 Reconstructive surgery 04/11/1970 Other 06/25/2021
--- OUTSIDE RECORDS SUMMARY | 2025-06-27 11:27 | XMS_ITS | Encounter Summary ---
Author Organization [facility] Healthcare Address [address] [place] [address] Care Team Providers Care Dried Yeast Supervisor Name Role Phone Jose Matute MD Primary Care Provider [phone] Radha Carolina RN Unavailable + [phone] Sonia Zavala Unavailable Unavailable Jose Matute MD Unavailable [phone] Carlos Hiadlgo MD Unavailable [phone] Johnny Hewitt MD Unavailable [phone] Pk Gutiérrez MD PhD Unavailable + Siva Jacobs MD PhD Unavailable [phone] Angeles Ray Unavailable Unavailable Encounter Details Date Type Department Care Team (Late st Contact Info) Description 01/25/2024 Telephone [facility] [address] [facility] [address] [place] [address] Qi Kim, MEG Social History Tobacco Use Types Packs/Day Years Used Date Smoking Tobacco: Former Cigarettes 1 20 0 09/10/1987 - 2007 Smokeless Tobacco: Never Alcohol Use Standard Drinks/Week Comments Yes 0 (1 standard drink = 0.6 oz pur e alcohol) 1 glass of wine every 2 weeks Social Connection and Isolation Panel Answer Date Recorded In a typical week, how many times do you talk on the phone with family, friends, or neighbors? More than three times a week 02/20/2023 How often do you get togethe r with friends or relatives? More than three times a week 02/20/2023 How often do you attend chur ch or hinduism services? Never 02/20/2023 Do you belong to any clubs o r organizations such as jain groups, unions, fraternal or athletic groups, or school groups? No 02/20/2023 How often do you attend meet ings of the clubs or organizations you belong to? Never 02/20/2023 Are you , , di vorced, , never , or living with a partner? Never 02/20/2023 AUDIT-C Answer Date Recorded Q1: How often do you have a drink containing alc ohol? Monthly or less 07/12/2021 Q2: How many drinks containi ng alcohol do you have on a typical day when you are drinking? 1 or 2 07/12/2021 Q3: How often do you have si x or more drinks on one occasion? Never 07/12/2021 Overall Financial Resource Strain (CARDIA) Answe r Date Recorded How hard is it for you to pa y for the very basics like food, housing, medical care, and heating? Hard 02/20/2023 PHQ-2 Answer Date Recorded PHQ-2 Total Score (If total score is 3 or more points, staff should administer the PHQ-9) 0 2023 Hunger Vital Sign Answer Date Recorded Within the past 12 months, y ou worried that your food would run out before you got the money to buy more. Never true 01/18/20 24 Within the past 12 months, t he food you bought just didn't last and you didn't have money to get more. Never true 01/18/2024 PRAPARE - Transportation Answer Date Re corded In the past 12 months, has l ack of transportation kept you from medical appointments or from getting medications? No 02/08 In the past 12 months, has l ack of transportation kept you from meetings, work, or from getting things needed for daily living? No 02/20/2023 Housing Stability Vital Sign Answer Alok e Recorded In the last 12 months, was t here a time when you were not able to pay the mortgage or rent on time? No 02/20/2023 In the last 12 months, how many places have you lived? 1 02/20/2023 In the last 12 months, was t here a time when you did not have a steady place to sleep or slept in a long-term (including now)? No 02/20/2023 Personal Safety Answer Date Recorded Have you ever been in or are you currently in a harmful physical or emotional relationship or is someone making you feel afraid or unsafe? Denies 01/25/2024 Comments No Sex and Gender Information Value Date Recorded Sex Assigned at Not on file Legal Sex Female 2:01 AM CITY ATTORNEY Gender Identity Not on file Sexual Orientation Not on file documented as of this encounter Plan of Treatment Scheduled Procedures Name Priority Associated Diagnoses Date/Ti ma COLONOSCOPY Iron deficiency anemia, unspecified iron deficiency anemia type ESOPHAGOGASTRODUODENOSCOPY Iron deficiency anemia, unspecified iron deficiency anemia type documented as of this encounter Goals Goal Patient Goal Type Associated Problems Recent Progress Patient-Stated? Author CCM Chronic Pain Care Plan Chronic Care Management Improving( 1:28 PM CDT) No Everardo Laughlin, RN Note: Problem: Chronic Pain Goals: 1. Minimize further functional decline 2. Maximize quality of life 3. Control pain Strategies: - Activity/exercise program recommendation - Conservative stepwise pain medicine strategy with multi-disciplinary approach - Recommend healthy lifestyle strategies and compensatory methods as needed documented as of this encounter Visit Diagnoses Not on filedocumented in this encounter Additional Health Concerns Infection Onset Date Last Indicated Resolved Time MDR gram neg/ESBL 05/22/2022 02/18/2023 COVID19 07/02/2024 07/02/2024 07/14/2024 3:05 AM CITY ATTORNEY COVID: Recovered Comment:Added based on recent COVID infection. 07/14/2024 07/21/2024 10/12/2024 3:[address] documented as of this encounter Care Teams Dried Yeast Supervisor Relationship Specialty Start Date End Date Jose Matute MD [address] [place] [id number] PCP - General 04/02/17 Radha Carolina, RN [address] [facility] [address] [place] [address] Registered Nurse Transplant 04/17/18 Sonia Zavala Primary Cement Mixer Transplant 04/17/18 Jose Matute MD [address] [place] [id number] Referring Physician Family Medicine 04/30/18 Carlos Hidalgo MD Fellow Internal Medicine 01/14/19 Johnny Hewitt MD Shoe Planner Obstetrics and Gynecology 06/02/21 Pk Gutiérrez MD PhD Referring Physician Cardiology 02/23/23 Siva Jacobs MD PhD [address] [facility] [address] [place] [address] Referring Physician Cardiology 07/04/24 Angeles Ray Primary Cement Mixer 05/28/25 documented as of this encounter
--- OUTSIDE RECORDS SUMMARY | 2025-06-27 11:27 | XMS_ITS | Encounter Summary ---
Author Organization [facility] Address [address] [place] [address] Phone Care Team Providers Care Poultry Dressing Worker Name Role Phone Jose Matute MD Primary Care Provider [phone] Radha Carolina RN Unavailable + [phone] Sonia Zavala Unavailable Unavailable Jose Matute MD Unavailable +[phone] Carlos Hidalgo MD Unavailable +[phone] Kateryna Antonio DPT Unavailable +[phone] Kateryna Antonio DPT Unavailable [phone] Johnny Hewitt MD Unavailable [phone] Pk Gutiérrez MD PhD Unavailable + Siva Jacobs MD PhD Unavailable +[phone] Angeles Ray Unavailable Unavailable Encounter Details Date Type Department Care Team (Late st Contact Info) Description 12/16/2018 Orders Only [facility] Scanning, Provider Social History Tobacco Use Types Packs/Day Years Used Date Smoking Tobacco: Former Cigarettes 1 21 0 09/10/1987 - 09/10/2008 Smokeless Tobacco: Never Alcohol Use Standard Drinks/Week Comments No 0 (1 standard drink = 0.6 oz pur e alcohol) Comments No Sex and Gender Information Value Date Recorded Sex Assigned at Not on file Legal Sex Female 2:01 AM ROUTE DRIVER COIN MACHINES Gender Identity Not on file Sexual Orientation Not on file documented as of this encounter Plan of Treatment Scheduled Procedures Name Priority Associated Diagnoses Date/Ti me COLONOSCOPY Iron deficiency anemia, unspecified iron deficiency anemia type ESOPHAGOGASTRODUODENOSCOPY Iron deficiency anemia, unspecified iron deficiency anemia type documented as of this encounter Procedures Procedure Name Priority Date/Time Associated Diagnosis Comments SCAN - RADIOLOGY/IMAGING 12/16/2018 documented in this encounter Results * SCAN - RADIOLOGY/IMAGING (12/16/2018) Anatomical Region Laterality Modality Other us Provider Scanning Final Result documented in this encounter Visit Diagnoses Not on filedocumented in this encounter Additional Health Concerns Infection Onset Date Last Indicated Resolved Time MDR gram neg/ESBL 05/22/2022 02/18/2023 COVID: Suspected 02/18/2023 02/18/2023 02/19/2023 10:07 AM CDT COVID19 07/02/2024 07/02/2024 07/14/2024 3:05 AM ROUTE DRIVER COIN MACHINES COVID: Recovered Comment:Added based on recent COVID infection. 07/14/2024 07/21/2024 10/12/2024 3:[address] documented as of this encounter Care Teams Poultry Dressing Worker Relationship Specialty Start Date End Date Jose Matute MD [address] [place] [address] PCP - General 04/02/17 Radha Carolina, MEG [address] [address] Registered Nurse Transplant 04/17/18 Sonia Zavala Primary Fruit Loader Transplant 04/17/18 Jose Matute MD [address] [place] [address] Referring Physician Family Medicine 04/30/18 Carlos Hidalgo MD Fellow Internal Medicine 01/14/19 Kateryna Antonio DPT Physical Therapist Physical Therapy 07/16/19 12/11/19 Kateryna Antonio DPT Physical Therapist Physical Therapy 11/27/19 12/11/19 Johnny Hewitt MD Yardage Caller Obstetrics and Gynecology 06/02/21 Pk Gutiérrez MD PhD Referring Physician Cardiology 02/23/23 Siva Jacobs MD PhD [address] [address] Referring Physician Cardiology 07/04/24 Angeles Ray Primary Fruit Loader 05/28/25 documented as of this encounter
--- OUTSIDE RECORDS SUMMARY | 2025-06-27 11:27 | XMS_ITS | Encounter Summary ---
Author Organization [facility] Address [address] [place] [address] Phone Care Team Providers Care Gun Club Manager Name Role Phone Jose Matute MD Primary Care Provider [phone] Radha Carolina RN Unavailable + [phone] Sonia Zavala Unavailable Unavailable Jose Matute MD Unavailable [phone] Carlos Hidalgo MD Unavailable [phone] Kateryna Antonio DPT Unavailable +[phone] Kateryna Antonio DPT Unavailable +[phone] Johnny Hewitt MD Unavailable [phone] Pk Gutiérrez MD PhD Unavailable + Siva Jacobs MD PhD Unavailable [phone] Angeles Ray Unavailable Unavailable Encounter Details Date Type Department Care Team (Late st Contact Info) Description 12/31/2018 Orders Only [facility] Scanning, Provider [...] on file Legal Sex Female 2:01 AM RN ON SITE Gender Identity Not on file Sexual Orientation Not on file documented as of this encounter Plan of Treatment Scheduled Procedures Name Priority Associated Diagnoses Date/Ti me COLONOSCOPY Iron deficiency anemia, unspecified iron deficiency anemia type ESOPHAGOGASTRODUODENOSCOPY Iron deficiency anemia, unspecified iron deficiency anemia type documented as of this encounter Procedures Procedure Name Priority Date/Time Associated Diagnosis Comments SCAN - RADIOLOGY/IMAGING 12/31/2018 documented in this encounter Results * SCAN - RADIOLOGY/IMAGING (12/31/2018) Anatomical Region Laterality Modality Other us Provider Scanning Final Result documented in this encounter Visit Diagnoses Not on filedocumented in this encounter Additional Health Concerns Infection Onset Date Last Indicated Resolved Time MDR gram neg/ESBL 05/22/2022 02/18/2023 COVID: Suspected 02/18/2023 02/18/2023 02/19/2023 10:07 AM CDT COVID19 07/02/2024 07/02/2024 07/14/2024 3:05 AM RN ON SITE COVID: Recovered Comment:Added based on recent COVID infection. 07/14/2024 07/21/2024 10/12/2024 3:[address] documented as of this encounter Care Teams Gun Club Manager Relationship Specialty Start Date End Date Jose Matuet MD [address] [place] [address] PCP - General 04/02/17 Radha Carolina, MEG [address] [address] Registered Nurse Transplant 04/17/18 Sonia Zavala Primary Computed Tomography Technician Transplant 04/17/18 Jose Matute MD [address] [place] [address] Referring Physician Family Medicine 04/30/18 Carlos Hidalgo MD Fellow Internal Medicine 01/14/19 Kateryna Antonio DPT Physical Therapist Physical Therapy 07/16/19 12/11/19 Kateryna Antonio DPT Physical Therapist Physical Therapy 11/27/19 12/11/19 Johnny Hewitt MD Carbonation Equipment Tender Obstetrics and Gynecology 06/02/21 Pk Gutiérrez MD PhD Referring Physician Cardiology 02/23/23 Siva Jacobs MD PhD [address] [address] Referring Physician Cardiology 07/04/24 Angeles Ray Primary Computed Tomography Technician 05/28/25 documented as of this encounter
--- OUTSIDE RECORDS SUMMARY | 2025-06-27 11:27 | XMS_ITS | Encounter Summary ---
Author Organization [facility] Care Team Providers Care Acute Dialysis Registered Nurse Name Role Phone Jose Matute MD Primary Care Provider [phone] Radha Carolina RN Unavailable + [phone] Sonia Zavala Unavailable Unavailable Jose Matute MD Unavailable [phone] Carlos Hidalgo MD Unavailable [phone] Johnny Hewitt MD Unavailable [phone] Pk Gutiérrez MD PhD Unavailable + Siva Jacobs MD PhD Unavailable [phone] Angeles Ray Unavailable Unavailable Reason for Visit * Auth/Cert Specialty Diagnoses / Procedures Referred By Contac t Referred To Contact Diagnoses Iron deficiency anemia, unspecified iron deficiency anemia type Iron deficiency anemia, unspecified iron deficiency anemia type [D50.9] Procedures KS COLONOSCOPY FLX DX W/COLLJ SPEC WHEN PFRMD COLONOSCOPY ESOPHAGOGASTRODUODENOSCOPY Referral ID Status Reason Start Date Expiration Date Visits Re quested Visits Authorized [id number] 1 1 Encounter Details Date Type Department Care Team (Latest Contact Info) Description 02/12/2024 Hospital Encounter Provider, Open Access Social History Tobacco Use Types Packs/Day Years Used Date Smoking Tobacco: Former Cigarettes 1 20 0 09/10/1987 - 2007 Passive Smoke Exposure: Past Smokeless Tobacco: Never Alcohol Use Standard Drinks/Week [...] often do you attend chur ch or christianity services? Never 02/20/2023 Do you belong to any clubs o r organizations such as mandaen groups, unions, fraternal or athletic groups, or school groups? No 02/20/2023 How often do you attend meet ings of the clubs or organizations you belong to? Never 02/20/2023 Are you , , di vorced, , never , or living with a partner? Never 02/20/2023 AUDIT-C Answer Date Recorded Q1: How often do you have a drink containing alc ohol? 2-4 times a month 12/19/2024 Q2: How many drinks containi ng alcohol do you have on a typical day when you are drinking? 1 or 2 12/19/2024 Q3: How often do you have si x or more drinks on one occasion? Never 12/19/2024 Overall Financial Resource Strain (CARDIA) Answe r [...] place to sleep or slept in a [place] [facility] [place] facility (including now)? No 02/20/2023 Personal Safety Answer Date Recorded Have you ever been in or are you currently in a harmful physical or emotional relationship or is someone making you feel afraid or unsafe? Denies 01/01/2025 Comments No Sex and Gender Information Value Date Recorded Sex Assigned at Not on file Legal Sex Female 2:01 AM TOURIST INFORMATION ASSISTANT Gender Identity Not on file Sexual Orientation Not on file documented as of this encounter Functional Status * AUDIT-C Score Answer Date of Assessment Author 2 12/19/2024 8:53 AM Martin Millard RN * Question Answer Date of Assessment Author Q1: How often do you have a drink containing alcohol? 2-4 times a month 12/19/2024 8:53 AM Duke Millard RN Q2: How many drinks containing alcohol do you have on a typical day when you are drinking? 1 or 2 12/19/2024 8:53 AM Duke Millard RN Q3: How often do you have six or more drinks on one occasion? Never 12/19/2024 8:53 AM Duke Millard RN documented as of this encounter Plan of Treatment Scheduled Procedures Name Priority Associated Diagnoses Date/Ti wy COLONOSCOPY Iron deficiency anemia, unspecified iron deficiency anemia type ESOPHAGOGASTRODUODENOSCOPY Iron deficiency anemia, unspecified iron deficiency anemia type documented as of this encounter Goals Goal Patient Goal Type Associated Problems Recent Progress Patient-Stated? Author CCM Chronic Pain Care Plan Chronic Care Management Improving( 1:28 PM CDT) Everardo Kirkland, RN Note: Problem: Chronic Pain Goals: 1. Minimize further functional decline 2. Maximize quality of life 3. Control pain Strategies: - Activity/exercise program recommendation - Conservative stepwise pain medicine strategy with multi-disciplinary approach - Recommend healthy lifestyle strategies and compensatory methods as needed documented as of this encounter Visit Diagnoses Diagnosis Anemia- Primary Unspecified anemia documented in this encounter Admitting Diagnoses Diagnosis Anemia Unspecified anemia documented in this encounter Additional Health Concerns Infection Onset Date Last Indicated Resolved Time MDR gram neg/ESBL 05/22/2022 02/18/2023 COVID19 07/02/2024 07/02/2024 07/14/2024 3:05 AM TOURIST INFORMATION ASSISTANT COVID: Recovered Comment:Added based on recent COVID infection. 07/14/2024 07/21/2024 10/12/2024 3:[address] documented as of this encounter Care Teams Acute Dialysis Registered Nurse Relationship Specialty Start Date End Date Jose Matute MD [address] [place] [address] PCP - General 04/02/17 Radha Carolina, MEG [address] [address] Registered Nurse Transplant 04/17/18 ZavalaSonia Primary Production Mechanic Tin Cans Transplant 04/17/18 Jose Matute MD [address] [place] [address] Referring Physician Family Medicine 04/30/18 Carlos Hidalgo MD Fellow Internal Medicine 01/14/19 Johnny Hewitt MD Jig Fitter Obstetrics and Gynecology 06/02/21 Pk Gutiérrez MD PhD Referring Physician Cardiology 02/23/23 Siva Jacobs MD PhD [address] [address] Referring Physician Cardiology 07/04/24 Angeles Ray Primary Production Mechanic Tin Cans 05/28/25 documented as of this encounter
--- OUTSIDE RECORDS SUMMARY | 2025-06-27 11:28 | XMS_ITS | Encounter Summary ---
Author Organization [facility] Address [address] [place] [address] Phone Care Team Providers Care Blasting Entryman Name Role Phone Sonia Jim MD Primary Care Provider [phone] Jose Matute MD Primary Care Provider Sonia Jim MD Primary Care Provider Jose Matute MD Primary Care Provider Jose Matute MD Primary Care Provider [phone] Sonia Jim MD Primary Care Provider Jose Matute MD Primary Care Provider Pawan Eli MD Unavailable [phone] Radha Carolina RN Unavailable [phone] Sonia Zavala Unavailable Unavailable Jose Matute MD Unavailable [phone] Carlos Hidalgo MD Unavailable [phone] Kateryna Antonio DPT Unavailable [phone] Kateryna Antonio DPT Unavailable [phone] Johnny Hewitt MD Unavailable Pk Gutiérrez MD PhD Unavailable + Siva Jacobs MD PhD Unavailable [phone] Angeles Ray Unavailable Unavailable Encounter Details Date Type Department Care Team (Latest Contact Info) Description 03/06/2017 Orders Only [facility] CONVERSION Scanning, Provider Social History Tobacco Use Types Packs/Day Years Used Date Smoking Tobacco: Never Assessed Comments Unknown Sex and Gender Information Value Date Recorded Sex Assigned at Not on file Legal Sex Female 2:01 AM FAMILY SERVICE COUNSELOR Gender Identity Not on file Sexual Orientation Not on file documented as of this encounter Plan of Treatment Scheduled Procedures Name Priority Associated Diagnoses Date/Ti me COLONOSCOPY Iron deficiency anemia, unspecified iron deficiency anemia type ESOPHAGOGASTRODUODENOSCOPY Iron deficiency anemia, unspecified iron deficiency anemia type documented as of this encounter Procedures Procedure Name Priority Date/Time Associated Diagnosis Comments VASCULAR LABORATORY REPORT 03/06/2017 2:56 PM CDT documented in this encounter Results * VASCULAR LABORATORY REPORT (03/06/2017 2:56 PM CDT) Anatomical Region Laterality Modality Ultrasound us Provider Scanning CV VASCULAR PROCEDURES Final R esult documented in this encounter Visit Diagnoses Not on filedocumented in this encounter Additional Health Concerns Infection Onset Date Last Indicated Resolved Time MDR gram neg/ESBL 05/22/2022 02/18/2023 COVID: Suspected 02/18/2023 02/18/2023 02/19/2023 10:07 AM CDT COVID19 07/02/2024 07/02/2024 07/14/2024 3:05 AM FAMILY SERVICE COUNSELOR COVID: Recovered Comment:Added based on recent COVID infection. 07/14/2024 07/21/2024 10/12/2024 3:[address] documented as of this encounter Care Teams Blasting Entryman Relationship Specialty Start Date End Date Sonia Jim MD PCP - General 03/06/17 03/08/17 Jose Matute MD [address] [place], [place] [address] PCP - General 03/09/17 03/15/17 Sonia Jim MD PCP - General 03/16/17 03/19/17 Jose Matute MD [address] [place] [address] PCP - General 03/20/17 03/25/17 Jose Matute MD [address] [place] [address] PCP - General 03/26/17 03/28/17 Sonia Jim MD PCP - General 03/29/17 04/01/17 Jose Matute MD [address] [place] [address] PCP - General 04/02/17 Pawan Eli MD [address] [place], [place] [id number] Salesperson Men'S Hats Cardiology 02/18/18 04/29/18 Radha Carolina, RN [address] [facility] [address] [place], [place] [id number] Registered Nurse Transplant 04/17/18 Sonia Zavala Primary Network Contractor Transplant 04/17/18 Jose Matute MD [address] [place] [address] Referring Physician Family Medicine 04/30/18 Carlos Hidalgo MD Fellow Internal Medicine 01/14/19 Kateryna Antonio DPT Physical Therapist Physical Therapy 07/16/19 12/11/19 Kateryna Antonio DPMegha Physical Therapist Physical Therapy 11/27/19 12/11/19 Johnny Hewitt MD Associate Medical Director Obstetrics and Gynecology 06/02/21 Pk Gutiérrez MD PhD Referring Physician Cardiology 02/23/23 Siva Jacobs MD PhD [address] [place] [address] [address] [place] [address] Referring Physician Cardiology 07/04/24 Angeles Ray Primary Network Contractor 05/28/25 documented as of this encounter
--- OUTSIDE RECORDS SUMMARY | 2025-06-27 11:28 | XMS_ITS | Encounter Summary ---
Author Organization [facility] Address [address] [place] [address] Phone Care Team Providers Care Biometrician Name Role Phone Jose Matute MD Primary Care Provider Pawan Eli MD Unavailable [phone] Radha Carolina RN Unavailable + [phone] Sonia Zavala Unavailable Unavailable Jose Matute MD Unavailable [phone] Carlos Hidalgo MD Unavailable [phone] Kateryna Antonio DPT Unavailable [phone] Kateryna Antonio DPT Unavailable [phone] Johnny Hewitt MD Unavailable [phone] Pk Gutiérrez MD PhD Unavailable + Siva Jacobs MD PhD Unavailable [phone] Angeles Ray Unavailable Unavailable Encounter Details Date Type Department Care Team (Late st Contact Info) Description 10/05/2017 Orders Only [facility] IM CAR CLINCONV Provider, MD Evan [address] [place] [address] Social History Tobacco Use Types Packs/Day Years Used Date Smoking Tobacco: Never Assessed Comments Unknown Sex and Gender Information Value Date Recorded Sex Assigned at Not on file Legal Sex Female 2:01 AM POURER Gender Identity Not on file Sexual Orientation Not on file documented as of this encounter Plan of Treatment Scheduled Procedures Name Priority Associated Diagnoses Date/Ti me COLONOSCOPY Iron deficiency anemia, unspecified iron deficiency anemia type ESOPHAGOGASTRODUODENOSCOPY Iron deficiency anemia, unspecified iron deficiency anemia type documented as of this encounter Procedures Procedure Name Priority Date/Time Associated Diagnosis Comments CARDIOLOGY REPORT 10/05/2017 documented in this encounter Results * CARDIOLOGY REPORT (10/05/2017) Anatomical Region Laterality Modality Other Narrative 10/05/2017 Ordered by an unspecified provider. Historical Provider [facility] MARCELINA ALVAREZ Final Result documented in this encounter Visit Diagnoses Not on filedocumented in this encounter Additional Health Concerns Infection Onset Date Last Indicated Resolved Time MDR gram neg/ESBL 05/22/2022 02/18/2023 COVID: Suspected 02/18/2023 02/18/2023 02/19/2023 10:07 AM CDT COVID19 07/02/2024 07/02/2024 07/14/2024 3:05 AM POURER COVID: Recovered Comment:Added based on recent COVID infection. 07/14/2024 07/21/2024 10/12/2024 3:[address] documented as of this encounter Care Teams Biometrician Relationship Specialty Start Date End Date Jose Matute MD [address] [place] [address] PCP - General 04/02/17 Pawan Eli MD [address] [place] [address] Collection Advisor Cardiology 02/18/18 04/29/18 Radha Carolina, RN [address] [facility] [address] [place] [address] Registered Nurse Transplant 04/17/18 Sonia Zavala Primary Electronics Technician Transplant 04/17/18 Jose Matute MD [address] [place] [address] Referring Physician Family Medicine 04/30/18 Carlos Hidalgo MD Fellow Internal Medicine 01/14/19 Kateryna Antonio DPT Physical Therapist Physical Therapy 07/16/19 12/11/19 Kateryna Antonio DPT Physical Therapist Physical Therapy 11/27/19 12/11/19 Johnny Hewitt MD Shoe Lacer Obstetrics and Gynecology 06/02/21 Pk Gutiérrez MD PhD Referring Physician Cardiology 02/23/23 Siva Jacbos MD PhD [address] [place] [address] Referring Physician Cardiology 07/04/24 Angeles Ray Primary Electronics Technician 05/28/25 documented as of this encounter
--- OUTSIDE RECORDS SUMMARY | 2025-06-27 11:28 | XMS_ITS | Encounter Summary ---
Author Organization [facility] Address [address] [place] [address] Phone Care Team Providers Care Glass Forming Engineer Name Role Phone Sonia Jim MD Primary Care Provider Jose Matute MD Primary Care Provider [phone] Sonia Jim MD Primary Care Provider Jose Matute MD Primary Care Provider [phone] Jose Matute MD Primary Care Provider [phone] Sonia Jim MD Primary Care Provider Jose Matute MD Primary Care Provider [phone] Sonia Jim MD Primary Care Provider Jose Matute MD Primary Care Provider [phone] Jose Matute MD Primary Care Provider Sonia Jim MD Primary Care Provider [phone] Jose Matute MD Primary Care Provider [phone] Pawan Eli MD Unavailable [phone] Radha Carolina RN Unavailable [phone] Sonia Zavala Unavailable Unavailable Jose Matute MD Unavailable [phone] Carlos Hidalgo MD Unavailable [phone] Kateryna Antonio DPT Unavailable [phone] Kateryna Antonio DPT Unavailable [phone] Johnny Hewitt MD Unavailable [phone] Pk Gutiérrez MD PhD Unavailable + Siva Jacobs MD PhD Unavailable [phone] Angeles Ray Unavailable Unavailable Encounter Details Date Type Department Care Team (Late st Contact Info) Description 04/14/2015 Orders Only [facility] IM CAR CLINCONV Provider, MD Evan [address] [place] [address] Social History Tobacco Use Types Packs/Day Years Used Date Smoking Tobacco: Never Assessed Comments Unknown Sex and Gender Information Value Date Recorded Sex Assigned at Not on file Legal Sex Female 2:01 AM AFTERSCHOOL Gender Identity Not on file Sexual Orientation Not on file documented as of this encounter Plan of Treatment Scheduled Procedures Name Priority Associated Diagnoses Date/Ti ct COLONOSCOPY Iron deficiency anemia, unspecified iron deficiency anemia type ESOPHAGOGASTRODUODENOSCOPY Iron deficiency anemia, unspecified iron deficiency anemia type documented as of this encounter Procedures Procedure Name Priority Date/Time Associated Diagnosis Comments CARDIOLOGY REPORT 04/14/2015 documented in this encounter Results * CARDIOLOGY REPORT (04/14/2015) Anatomical Region Laterality Modality Other Narrative 04/14/2015 Ordered by an unspecified provider. Historical Provider [facility] C[facility]IAC [facility] MARCELINA ALVAREZ Final Result documented in this encounter Visit Diagnoses Not on filedocumented in this encounter Additional Health Concerns Infection Onset Date Last Indicated Resolved Time MDR gram neg/ESBL 05/22/2022 02/18/2023 COVID: Suspected 02/18/2023 02/18/2023 02/19/2023 10:07 AM CDT COVID19 07/02/2024 07/02/2024 07/14/2024 3:05 AM AFTERSCHOOL COVID: Recovered Comment:Added based on recent COVID infection. 07/14/2024 07/21/2024 10/12/2024 3:[address] documented as of this encounter Care Teams Glass Forming Engineer Relationship Specialty Start Date End Date Sonia Jim MD PCP - General 12/05/16 02/26/17 Jose Matute MD [address] [place] [address] PCP - General 02/27/17 02/27/17 Sonia Jim MD PCP - General 02/28/17 03/03/17 Jose Matute MD [address] [place] [address] PCP - General 03/04/17 03/04/17 Jose Matute MD [address] [place] [address] PCP - General 03/05/17 03/05/17 Sonia Jim MD PCP - General 03/06/17 03/08/17 Jose Matute MD [address] [place] [address] PCP - General 03/09/17 03/15/17 Sonia Jim MD PCP - General 03/16/17 03/19/17 Jose Matute MD [address] [place] [address] PCP - General 03/20/17 03/25/17 Jose Matute MD [address] [place] [address] PCP - General 03/26/17 03/28/17 Sonia Jmi MD PCP - General 03/29/17 04/01/17 Jose Matute MD [address] [place] [address] PCP - General 04/02/17 Pawan Eli MD [address] [place] [address] Continuous Pickling Line Pickler Cardiology 02/18/18 04/29/18 Radha Carolina, RN [address] [facility] [address] [place] [address] Registered Nurse Transplant 04/17/18 Sonia Zavala Primary Regional Business Development Manager Transplant 04/17/18 Jose Matute MD [address] [place] [address] Referring Physician Family Medicine 04/30/18 Carlos Hidalgo MD Fellow Internal Medicine 01/14/19 Kateryna Antonio DPT Physical Therapist Physical Therapy 07/16/19 12/11/19 Kateryna Antonio DPT Physical Therapist Physical Therapy 11/27/19 12/11/19 Johnny Hewitt MD Accounts Receivable Collector Obstetrics and Gynecology 06/02/21 Pk Gutiérrez MD PhD Referring Physician Cardiology 02/23/23 Siva Jacobs MD PhD [address] [address] Referring Physician Cardiology 07/04/24 Angeles Ray Primary Regional Business Development Manager 05/28/25 documented as of this encounter
--- OUTSIDE RECORDS SUMMARY | 2025-06-27 11:28 | XMS_ITS | Encounter Summary ---
Author Organization [facility] Address [address] [place] [address] Phone Care Team Providers Care Senior Applications Analyst Name Role Phone Sonia Jim MD Primary Care Provider Jose Matute MD Primary Care Provider [phone] Sonia Jim MD Primary Care Provider Jose Matute MD Primary Care Provider Jose Matute MD Primary Care Provider Sonia Jim MD Primary Care Provider Jose Matute MD Primary Care Provider Sonia Jim MD Primary Care Provider Jose Matute MD Primary Care Provider Jose Matute MD Primary Care Provider Sonia Jim MD Primary Care Provider [phone] Jose Matute MD Primary Care Provider [phone] Pawan Eli MD Unavailable [phone] Radha Carolina RN Unavailable +[phone] Sonia Zavala Unavailable Unavailable Jose Matute MD Unavailable +[phone] Carlos Hidalgo MD Unavailable [phone] Kateryna Antonio DPT Unavailable [phone] Kateryna Antonio DPT Unavailable [phone] Johnny Hewitt MD Unavailable [phone] Pk Gutiérrez MD PhD Unavailable + Siva Jacobs MD PhD Unavailable [phone] Angeles Ray Unavailable Unavailable Encounter Details Date Type Department Care Team (Late st Contact Info) Description 07/01/2014 Orders Only [facility] CLINCONV Provider, MD Evan [address] [place] [address] Social History Tobacco Use Types Packs/Day Years Used Date Smoking Tobacco: Never Assessed Comments Unknown Sex and Gender Information Value Date Recorded Sex Assigned at Not on file 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 Gender Identity Not on file Sexual Orientation Not on file documented as of this encounter Plan of Treatment Scheduled Procedures Name Priority Associated Diagnoses Date/Ti vt COLONOSCOPY Iron deficiency anemia, unspecified iron deficiency anemia type ESOPHAGOGASTRODUODENOSCOPY Iron deficiency anemia, unspecified iron deficiency anemia type documented as of this encounter Procedures Procedure Name Priority Date/Time Associated Diagnosis Comments CARDIOLOGY REPORT 07/01/2014 documented in this encounter Results * CARDIOLOGY REPORT (07/01/2014) Anatomical Region Laterality Modality Other Narrative 07/01/2014 Ordered by an unspecified provider. Historical Provider CV CARDIAC SERVICES MARCELINA ALVAREZ Final Result documented in this encounter Visit Diagnoses Not on filedocumented in this encounter Additional Health Concerns Infection Onset Date Last Indicated Resolved Time MDR gram neg/ESBL 05/22/2022 02/18/2023 COVID: Suspected 02/18/2023 02/18/2023 02/19/2023 10:07 AM CDT COVID19 07/02/2024 07/02/2024 07/14/2024 3:05 AM SOLID FIBER PASTER OPERATOR COVID: Recovered Comment:Added based on recent COVID infection. 07/14/2024 07/21/2024 10/12/2024 3:[address] documented as of this encounter Care Teams Senior Applications Analyst Relationship Specialty Start Date End Date Sonia Jim MD PCP - General 12/05/16 02/26/17 Jose Matute MD [address] [place] [address] PCP - General 02/27/17 02/27/17 Sonia Jim MD PCP - General 02/28/17 03/03/17 Jose Matute MD [address] [place] [address] PCP - General 03/04/17 03/04/17 Jose Matute MD [address] [place] [address] PCP - General 03/05/17 03/05/17 Sonia Jim MD PCP - General 03/06/17 03/08/17 Jose Matute MD [address] [place] [address] PCP - General 03/09/17 03/15/17 Sonia Jim MD PCP - General 03/16/17 03/19/17 Jose Matute MD [address] [place] [address] PCP - General 03/20/17 03/25/17 Jose Matute MD [address] [place] [address] PCP - General 03/26/17 03/28/17 Sonia Jim MD PCP - General 03/29/17 04/01/17 Jose Matute MD [address] [place] [address] PCP - General 04/02/17 Pawan Eli MD [address] [place] [address] Film Washer Cardiology 02/18/18 04/29/18 Radha Carolina, RN [address] [facility] [address] [place] [address] Registered Nurse Transplant 04/17/18 Sonia Zavala Primary Supervisor Pit And Auxiliaries Transplant 04/17/18 Jose Matute MD [address] [place] [address] Referring Physician Family Medicine 04/30/18 Carlos Hidalgo MD Fellow Internal Medicine 01/14/19 Kateryna Antonio DPT Physical Therapist Physical Therapy 07/16/19 12/11/19 Kateryna Antonio DPT Physical Therapist Physical Therapy 11/27/19 12/11/19 Johnny Hewitt MD Compliance Mgr Obstetrics and Gynecology 06/02/21 Pk Gutiérrez MD PhD Referring Physician Cardiology 02/23/23 Siva Jacobs MD PhD [address] [address] Referring Physician Cardiology 07/04/24 Angeles Ray Primary Supervisor Pit And Auxiliaries 05/28/25 documented as of this encounter
--- OUTSIDE RECORDS SUMMARY | 2025-06-27 11:28 | XMS_ITS | Clinical Summary ---
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 Gender Identity Not on file Sexual Orientation Not on file Plan of Treatment Health Maintenance Due Date Last Done Comments Hepatitis C Virus (HCV) Screening 1969 TdaP Immunization 1969 Hepatitis B Immunization (1 of 3 - 19+ 3-dose series) 02/22/1988 Pap Smear 1990 Cervical Cancer Screening (CCS) 1999 HPV/Cotest 1999 Cologuard 2014 Colonoscopy 2014 Colorectal Cancer Screening 2014 Immunochemical Fecal Occult Blood 2014 Pneumococcal Immunization (50+ years) (1 of 1 - PCV) 2019 Zoster Immunization (1 of 2) 2019 Influenza Immunization (#1) 05/11/202506/11, 06/18/2017, 06/07/2016, Additional history exists SARS-COV-2 Immunization ( season) 2025 Respiratory Syncytial Virus (RSV) Immunization (Adult) (1 - 1-dose 75+ series) 02/22/2044 Human Papillomavirus (HPV) Immunization Aged Out No longer eligible based on patient's age to complete this topic Meningococcal Immunization (ACWY) Aged Out No longer eligible based on patient's age to complete this topic Rotavirus Immunization Aged Out No lo nger eligible based on patient's age to complete this topic
--- OUTSIDE RECORDS SUMMARY | 2025-06-27 11:28 | XMS_ITS | Encounter Summary ---
Author Organization [facility] Address [address] [place] [address] Phone Care Team Providers Care Material Control Associate Name Role Phone Sonia Jim MD Primary Care Provider Jose Matute MD Primary Care Provider [phone] Sonia Jim MD Primary Care Provider Jose Matute MD Primary Care Provider Jose Matute MD Primary Care Provider Sonia Jim MD Primary Care Provider Jose Matute MD Primary Care Provider Sonia Jim MD Primary Care Provider Jose Matute MD Primary Care Provider Jose Matute MD Primary Care Provider Sonia Jim MD Primary Care Provider [phone] Jose Matute MD Primary Care Provider [phone] Pawan Eli MD Unavailable [phone] Radha Carolina RN Unavailable [phone] Sonia Zavala Unavailable Unavailable Jose Matute MD Unavailable +[phone] Carlos Hidalgo MD Unavailable [phone] Kateryna Antonio DPT Unavailable [phone] Kateryna Antonio DPT Unavailable [phone] Johnny Hewitt MD Unavailable [phone] Pk Gutiérrez MD PhD Unavailable + Siva Jacobs MD PhD Unavailable [phone] Angeles Ray Unavailable Unavailable Encounter Details Date Type Department Care Team (Late st Contact Info) Description 08/24/2014 Orders Only [facility] IM CAR CLINCONV Provider, MD Evan [address] [place] [address] Social History Tobacco Use Types Packs/Day Years Used Date Smoking Tobacco: Never Assessed Comments Unknown Sex and Gender Information Value Date Recorded Sex Assigned at Not on file 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 Sex Female 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 Gender Identity Not on file Sexual Orientation Not on file documented as of this encounter Plan of Treatment Scheduled Procedures Name Priority Associated Diagnoses Date/Ti ca COLONOSCOPY Iron deficiency anemia, unspecified iron deficiency anemia type ESOPHAGOGASTRODUODENOSCOPY Iron deficiency anemia, unspecified iron deficiency anemia type documented as of this encounter Procedures Procedure Name Priority Date/Time Associated Diagnosis Comments CARDIOLOGY REPORT 08/24/2014 documented in this encounter Results * CARDIOLOGY REPORT (08/24/2014) Anatomical Region Laterality Modality Other Narrative 08/24/2014 Ordered by an unspecified provider. Historical Provider CV CARDIAC SERVICES MARCELINA ALVAREZ Final Result documented in this encounter Visit Diagnoses Not on filedocumented in this encounter Additional Health Concerns Infection Onset Date Last Indicated Resolved Time MDR gram neg/ESBL 05/22/2022 02/18/2023 COVID: Suspected 02/18/2023 02/18/2023 02/19/2023 10:07 AM CDT COVID19 07/02/2024 07/02/2024 07/14/2024 3:05 AM INVOICE CHECKER COVID: Recovered Comment:Added based on recent COVID infection. 07/14/2024 07/21/2024 10/12/2024 3:[address] documented as of this encounter Care Teams Material Control Associate Relationship Specialty Start Date End Date Sonia Jim MD PCP - General 12/05/16 02/26/17 Jose Matute MD [address] [place] [address] PCP - General 02/27/17 02/27/17 Sonia Jim MD PCP - General 02/28/17 03/03/17 Jose Matute MD [address] [place] [address] PCP - General 03/04/17 03/04/17 Jose Matute MD [address] [place] [address] PCP - General 03/05/17 03/05/17 Sonia Jim MD PCP - General 03/06/17 03/08/17 Jose Matute MD [address] [place] [address] PCP - General 03/09/17 03/15/17 Sonia Jim MD PCP - General 03/16/17 03/19/17 Jose Matute MD [address] [place] [address] PCP - General 03/20/17 03/25/17 Jose Matute MD [address] [place] [address] PCP - General 03/26/17 03/28/17 Sonia Jim MD PCP - General 03/29/17 04/01/17 Jose Matute MD [address] [place] [address] PCP - General 04/02/17 Pawan Eli MD [address] [place] [address] Wood Last Maker Cardiology 02/18/18 04/29/18 Radha Carolina, RN [address] [facility] [address] [place] [address] Registered Nurse Transplant 04/17/18 Sonia Zavala Primary Prestidigitator Transplant 04/17/18 Jose Matute MD [address] [place] [address] Referring Physician Family Medicine 04/30/18 Carlos Hidalgo MD Fellow Internal Medicine 01/14/19 Kateryna Antonio DPT Physical Therapist Physical Therapy 07/16/19 12/11/19 Kateryna Antonio DPT Physical Therapist Physical Therapy 11/27/19 12/11/19 Johnny Hewitt MD Complaint Evaluation Supervisor Obstetrics and Gynecology 06/02/21 Pk Gutiérrez MD PhD Referring Physician Cardiology 02/23/23 Siva Jacobs MD PhD [address] [address] Referring Physician Cardiology 07/04/24 Angeles Ray Primary Prestidigitator 05/28/25 documented as of this encounter
--- OUTSIDE RECORDS SUMMARY | 2025-06-27 11:28 | XMS_ITS | Encounter Summary ---
Author Organization [facility] Address [address] [place] [address] Phone Care Team Providers Care Ranch Supervisor Name Role Phone Sonia Jim MD Primary Care Provider [phone] Jose Matute MD Primary Care Provider Sonia Jim MD Primary Care Provider Jose Matute MD Primary Care Provider Jose Matute MD Primary Care Provider [phone] Sonia Jim MD Primary Care Provider Jose Matute MD Primary Care Provider Pawan Eli MD Unavailable Radha Carolina RN Unavailable [phone] Sonia Zavala Unavailable Unavailable Jose Matute MD Unavailable [phone] Carlos Hidalgo MD Unavailable [phone] Kateryna Antonion DPT Unavailable [phone] Kateryna Antonio Charisse DPT Unavailable [phone] Johnny Hewitt MD Unavailable Pk Gutiérrez MD PhD Unavailable + Siva Jacobs MD PhD Unavailable [phone] Angeles Ray Unavailable Unavailable Encounter Details Date Type Department Care Team (Latest Contact Info) Description 03/08/2017 Orders Only [facility] CONVERSION Scanning, Provider Social History Tobacco Use Types Packs/Day Years Used Date Smoking Tobacco: Never Assessed Comments Unknown Sex and Gender Information Value Date Recorded Sex Assigned at Not on file 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 Gender Identity Not on file Sexual Orientation Not on file documented as of this encounter Plan of Treatment Scheduled Procedures Name Priority Associated Diagnoses Date/Ti me COLONOSCOPY Iron deficiency anemia, unspecified iron deficiency anemia type ESOPHAGOGASTRODUODENOSCOPY Iron deficiency anemia, unspecified iron deficiency anemia type documented as of this encounter Procedures Procedure Name Priority Date/Time Associated Diagnosis Comments VASCULAR LABORATORY REPORT 03/22/2017 6:34 AM CDT VASCULAR LABORATORY REPORT 03/09/2017 2:24 AM CDT PULMONARY FUNCTION TEST (PFT) 03/08/2017 11:09 AM CDT documented in this encounter Results * VASCULAR LABORATORY REPORT (03/22/2017 6:34 AM CDT) Anatomical Region Laterality Modality Ultrasound us Provider Scanning CV VASCULAR PROCEDURES Final R esult * VASCULAR LABORATORY REPORT (03/09/2017 2:24 AM CDT) Anatomical Region Laterality Modality Ultrasound us Provider Scanning CV VASCULAR PROCEDURES Final R esult * PULMONARY FUNCTION TEST (PFT) (03/08/2017 11:09 AM CDT) Anatomical Region Laterality Modality PFT us Provider Scanning PFT ORDERABLES Final Result documented in this encounter Visit Diagnoses Not on filedocumented in this encounter Additional Health Concerns Infection Onset Date Last Indicated Resolved Time MDR gram neg/ESBL 05/22/2022 02/18/2023 COVID: Suspected 02/18/2023 02/18/2023 02/19/2023 10:07 AM CDT COVID19 07/02/2024 07/02/2024 07/14/2024 3:05 AM FLOOR ASSEMBLER COVID: Recovered Comment:Added based on recent COVID infection. 07/14/2024 07/21/2024 10/12/2024 3:[address] documented as of this encounter Care Teams Ranch Supervisor Relationship Specialty Start Date End Date Sonia Jim MD PCP - General 03/06/17 03/08/17 Jose Matute MD [address] [place] [address] PCP - General 03/09/17 03/15/17 Sonia Jim MD PCP - General 03/16/17 03/19/17 Jose Matute MD [address] [place] [address] PCP - General 03/20/17 03/25/17 Jose Matute MD [address] [place] [address] PCP - General 03/26/17 03/28/17 Sonia Jim MD PCP - General 03/29/17 04/01/17 Jose Matute MD [address] [place] [address] PCP - General 04/02/17 Pawan Eli MD [address] [place] [address] Paring Machine Operator Cardiology 02/18/18 04/29/18 Radha Carolina, RN [address] [facility] [address] [place], [place] [id number] Registered Nurse Transplant 04/17/18 Sonia Zavala Primary Manager Hospice Transplant 04/17/18 Jose Matute MD [address] [place] [address] Referring Physician Family Medicine 04/30/18 Carlos Hidalgo MD Fellow Internal Medicine 01/14/19 Kateryna Antonio DPT Physical Therapist Physical Therapy 07/16/19 12/11/19 Kateryna Antonio DPT Physical Therapist Physical Therapy 11/27/19 12/11/19 Johnny Hewitt MD Sustainability Consultant Obstetrics and Gynecology 06/02/21 Pk Gutiérrez MD PhD Referring Physician Cardiology 02/23/23 Siva Jacobs MD PhD [address] [facility] [address] [place] [address] Referring Physician Cardiology 07/04/24 Angeles Ray Primary Manager Hospice 05/28/25 documented as of this encounter
--- OUTSIDE RECORDS SUMMARY | 2025-06-27 11:28 | XMS_ITS | Encounter Summary ---
Author Organization [facility] Address [address] [place] [address] Phone Care Team Providers Care Terrazzo Layer Helper Name Role Phone Sonia Jim MD Primary Care Provider Jose Matute MD Primary Care Provider Sonia Jim MD Primary Care Provider Jose Matute MD Primary Care Provider Jose Matute MD Primary Care Provider Sonia Jim MD Primary Care Provider Jose Matute MD Primary Care Provider Sonia Jim MD Primary Care Provider Jose Matute MD Primary Care Provider Jose Matute MD Primary Care Provider [phone] Sonia Jim MD Primary Care Provider [phone] Jose Mautte MD Primary Care Provider [phone] Pawan Eli MD Unavailable [phone] Radha Carolina RN Unavailable [phone] Sonia Zavala Unavailable Unavailable Jose Matute MD Unavailable [phone] Carlos Hidalgo MD Unavailable [phone] Kateryna Antonio DPT Unavailable [phone] Kateryna Antonio DPT Unavailable [phone] Johnny Hewitt MD Unavailable [phone] Pk Gutiérrez MD PhD Unavailable + Siva Jacobs MD PhD Unavailable [phone] Angeles Ray Unavailable Unavailable Encounter Details Date Type Department Care Team (Late st Contact Info) Description 02/08/2015 Orders Only [facility] IM CAR CLINCONV Provider, MD Evan [address] [place] [address] Social History Tobacco Use Types Packs/Day Years Used Date Smoking Tobacco: Never Assessed Comments Unknown Sex and Gender Information Value Date Recorded Sex Assigned at Not on file Legal Sex Female 2:01 AM HEALTH CARE 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 Gender Identity Not on file Sexual Orientation Not on file documented as of this encounter Plan of Treatment Scheduled Procedures Name Priority Associated Diagnoses Date/Ti ks COLONOSCOPY Iron deficiency anemia, unspecified iron deficiency anemia type ESOPHAGOGASTRODUODENOSCOPY Iron deficiency anemia, unspecified iron deficiency anemia type documented as of this encounter Procedures Procedure Name Priority Date/Time Associated Diagnosis Comments CARDIOLOGY REPORT 02/08/2015 documented in this encounter Results * CARDIOLOGY REPORT (02/08/2015) Anatomical Region Laterality Modality Other Narrative 02/08/2015 Ordered by an unspecified provider. Historical Provider CV CARDIAC SERVICES MARCELINA ALVAREZ Final Result documented in this encounter Visit Diagnoses Not on filedocumented in this encounter Additional Health Concerns Infection Onset Date Last Indicated Resolved Time MDR gram neg/ESBL 05/22/2022 02/18/2023 COVID: Suspected 02/18/2023 02/18/2023 02/19/2023 10:07 AM CDT COVID19 07/02/2024 07/02/2024 07/14/2024 3:05 AM HEALTH CARE LIAISON COVID: Recovered Comment:Added based on recent COVID infection. 07/14/2024 07/21/2024 10/12/2024 3:[address] documented as of this encounter Care Teams Terrazzo Layer Helper Relationship Specialty Start Date End Date Sonia Jim MD PCP - General 12/05/16 02/26/17 Jose Matute MD [address] [place] [address] PCP - General 02/27/17 02/27/17 Sonia Jim MD PCP - General 02/28/17 03/03/17 Jose Matute MD [address] [place] [address] PCP - General 03/04/17 03/04/17 Jose Matute MD [address] [place] [address] PCP - General 03/05/17 03/05/17 Sonia Jim MD PCP - General 03/06/17 03/08/17 Jose Matute MD [address] [place] [address] PCP - General 03/09/17 03/15/17 Sonia Jim MD PCP - General 03/16/17 03/19/17 Jose Matute MD [address] [place] [address] PCP - General 03/20/17 03/25/17 Jose Matute MD [address] [place] [address] PCP - General 03/26/17 03/28/17 Sonia Jim MD PCP - General 03/29/17 04/01/17 Jose Matute MD [address] [place] [address] PCP - General 04/02/17 Pawan Eli MD [address] [place] [address] Dish Room Worker Cardiology 02/18/18 04/29/18 Radha Carolina, RN [address] [facility] [address] [place] [address] Registered Nurse Transplant 04/17/18 Sonia Zavala Primary Pipe Bending Machine Operator Transplant 04/17/18 Jose Matute MD [address] [place] [address] Referring Physician Family Medicine 04/30/18 Carlos Hidalgo MD Fellow Internal Medicine 01/14/19 Kateryna Antonio DPT Physical Therapist Physical Therapy 07/16/19 12/11/19 Kateryna Antonio DPT Physical Therapist Physical Therapy 11/27/19 12/11/19 Johnny Hewitt MD Vp Ad Sales West Obstetrics and Gynecology 06/02/21 Pk Gutiérrez MD PhD Referring Physician Cardiology 02/23/23 Siva Jacobs MD PhD [address] [address] Referring Physician Cardiology 07/04/24 Angeles Ray Primary Pipe Bending Machine Operator 05/28/25 documented as of this encounter
--- OUTSIDE RECORDS SUMMARY | 2025-06-27 11:28 | XMS_ITS | Encounter Summary ---
Author Organization [facility] Address [address] [place] [address] Phone Care Team Providers Care Oil Winterizer Name Role Phone Jose Matute MD Primary Care Provider [phone] Pawan Eli MD Unavailable [phone] Radha Carolina RN Unavailable + [phone] Sonia Zavala Unavailable Unavailable Jose Matute MD Unavailable [phone] Carlos Hidalgo MD Unavailable [phone] Kateryna Antonio DPT Unavailable [phone] Kateryna Antonio DPT Unavailable [phone] Johnny Hewitt MD Unavailable [phone] Pk Gutiérrez MD PhD Unavailable + Siva Jacobs MD PhD Unavailable [phone] Angeles Ray Unavailable Unavailable Encounter Details Date Type Department Care Team (Latest Contact Info) Description 10/02/2017 Orders Only [facility] CONVERSION Scanning, Provider Social History Tobacco Use Types Packs/Day Years Used Date Smoking Tobacco: Never Assessed Comments Unknown Sex and Gender Information Value Date Recorded Sex Assigned at Not on file Legal Sex Female 2:01 AM OUTPATIENT SURGERY RN Gender Identity Not on file Sexual Orientation Not on file documented as of this encounter Plan of Treatment Scheduled Procedures Name Priority Associated Diagnoses Date/Ti me COLONOSCOPY Iron deficiency anemia, unspecified iron deficiency anemia type ESOPHAGOGASTRODUODENOSCOPY Iron deficiency anemia, unspecified iron deficiency anemia type documented as of this encounter Procedures Procedure Name Priority Date/Time Associated Diagnosis Comments VASCULAR LABORATORY REPORT 10/02/2017 7:36 AM OUTPATIENT SURGERY RN documented in this encounter Results * VASCULAR LABORATORY REPORT (10/02/2017 7:36 AM OUTPATIENT SURGERY RN) Anatomical Region Laterality Modality Ultrasound us Provider Scanning CV VASCULAR PROCEDURES Edited Result - Final documented in this encounter Visit Diagnoses Not on filedocumented in this encounter Additional Health Concerns Infection Onset Date Last Indicated Resolved Time MDR gram neg/ESBL 05/22/2022 02/18/2023 COVID: Suspected 02/18/2023 02/18/2023 02/19/2023 10:07 AM CDT COVID19 07/02/2024 07/02/2024 07/14/2024 3:05 AM OUTPATIENT SURGERY RN COVID: Recovered Comment:Added based on recent COVID infection. 07/14/2024 07/21/2024 10/12/2024 3:[address] documented as of this encounter Care Teams Oil Winterizer Relationship Specialty Start Date End Date Jose Matute MD [address] [place] [address] PCP - General 04/02/17 Pawan Eli MD [address] [place] [address] Cobol Application Developer Cardiology 02/18/18 04/29/18 Radha Carolina RN 45[address] [facility] [address] [place] [address] Registered Nurse Transplant 04/17/18 Sally Sonia Primary Manager Financial Services Transplant 04/17/18 Jose Matute MD [address] [place] [address] Referring Physician Family Medicine 04/30/18 Carlos Hidalgo MD Fellow Internal Medicine 01/14/19 Kateryna Antonio DPT Physical Therapist Physical Therapy 07/16/19 12/11/19 Kateryna Antonio DPT Physical Therapist Physical Therapy 11/27/19 12/11/19 Johnny Hewitt MD Marketing Campaign Analyst Obstetrics and Gynecology 06/02/21 Pk Gutiérrez MD PhD Referring Physician Cardiology 02/23/23 Siva Jacobs MD PhD [address] [facility] [address] [place] [address] Referring Physician Cardiology 07/04/24 Angeles Ray Primary Manager Financial Services 05/28/25 documented as of this encounter
--- OUTSIDE RECORDS SUMMARY | 2025-06-27 11:28 | XMS_ITS | Encounter Summary ---
Author Organization [facility] Address [address] [place] [address] Phone Care Team Providers Care Automotive Hardware Engineer Name Role Phone Sonia Jim MD [...] Sonia Jim MD Primary Care Provider [phone] Jose Matute MD Primary Care Provider [phone] Pawan Eli MD Unavailable [phone] Radha Carolina RN Unavailable +[phone] Sonia Zavala Unavailable Unavailable Jose Matute MD Unavailable +[phone] Carlos Hidalgo MD Unavailable [phone] Kateryna Antonio DPT Unavailable [phone] Kateryna Antonio DPT Unavailable [phone] Johnny Hewitt MD Unavailable +[phone] Pk Gutiérrez MD PhD Unavailable + Siva Jacobs MD PhD Unavailable +[phone] Angeles Ray Unavailable Unavailable Encounter Details Date Type Department Care Team (Late st Contact Info) Description 01/10/2016 Orders Only [facility] IM CAR CLINCONV Provider, MD Evan [address] [place] [address] Social History Tobacco Use Types Packs/Day Years Used Date Smoking Tobacco: Never Assessed Comments Unknown Sex and Gender Information Value Date Recorded Sex Assigned at Not on file Legal Sex Female 2:01 AM IRON CUTTER Gender Identity Not on file Sexual Orientation Not on file documented as of this encounter Plan of Treatment Scheduled Procedures Name Priority Associated Diagnoses Date/Ti id COLONOSCOPY Iron deficiency anemia, unspecified iron deficiency anemia type ESOPHAGOGASTRODUODENOSCOPY Iron deficiency anemia, unspecified iron deficiency anemia type documented as of this encounter Procedures Procedure Name Priority Date/Time Associated Diagnosis Comments CARDIOLOGY REPORT 01/10/2016 documented in this encounter Results * CARDIOLOGY REPORT (01/10/2016) Anatomical Region Laterality Modality Other Narrative 01/10/2016 Ordered by an unspecified provider. Historical Provider [facility] CARDIAC SERVICES MARCELINA ALVAREZ Final Result documented in this encounter Visit Diagnoses Not on filedocumented in this encounter Additional Health Concerns Infection Onset Date Last Indicated Resolved Time MDR gram neg/ESBL 05/22/2022 02/18/2023 COVID: Suspected 02/18/2023 02/18/2023 02/19/2023 10:07 AM CDT COVID19 07/02/2024 07/02/2024 07/14/2024 3:05 AM IRON CUTTER COVID: Recovered Comment:Added based on recent COVID infection. 07/14/2024 07/21/2024 10/12/2024 3:[address] documented as of this encounter Care Teams Automotive Hardware Engineer Relationship Specialty Start Date End Date Sonia Jim MD PCP - General 12/05/16 02/26/17 Jose Matute MD [address] [place] [address] PCP - General 02/27/17 02/27/17 Sonia Jim MD PCP - General 02/28/17 03/03/17 Jose Matute MD [address] [place] [address] PCP - General 03/04/17 03/04/17 Jose Matute MD [address] [place] [address] PCP - General 03/05/17 03/05/17 Sonia Jim MD PCP - General 03/06/17 03/08/17 Jose Matute MD [address] [place] [address] PCP - General 03/09/17 03/15/17 Sonia Jim MD PCP - General 03/16/17 03/19/17 Jose Matute MD [address] [place] [address] PCP - General 03/20/17 03/25/17 Jose Matute MD [address] [place] [address] PCP - General 03/26/17 03/28/17 Sonia Jim MD PCP - General 03/29/17 04/01/17 Jose Matute MD [address] [place] [address] PCP - General 04/02/17 Pawan Eli MD [address] [place] [address] Occupational Therapy Program Director Cardiology 02/18/18 04/29/18 Radha Carolina, RN [address] [facility] [address] [place] [address] Registered Nurse Transplant 04/17/18 Sonia Zavala Primary Utility Person Transplant 04/17/18 Jose Matute MD [address] [place] [address] Referring Physician Family Medicine 04/30/18 Carlos Hidalgo MD Fellow Internal Medicine 01/14/19 Kateryna Antonio DPT Physical Therapist Physical Therapy 07/16/19 12/11/19 Kateryna Antonio DPT Physical Therapist Physical Therapy 11/27/19 12/11/19 Johnny Hewitt MD Incident Manager Obstetrics and Gynecology 06/02/21 Pk Gutiérrez MD PhD Referring Physician Cardiology 02/23/23 Siva Jacobs MD PhD [address] [address] Referring Physician Cardiology 07/04/24 Angeles Ray Primary Utility Person 05/28/25 documented as of this encounter
--- OUTSIDE RECORDS SUMMARY | 2025-06-27 11:28 | XMS_ITS | Encounter Summary ---
Author Organization [facility] Address [address] [place] [address] Phone Care Team Providers Care Assembler Fluorescent Lights Name Role Phone Jose Matute MD Primary Care Provider [phone] Pawan Eli MD Unavailable [phone] Radha Carolina RN Unavailable + [phone] Sonia Zavala Unavailable Unavailable Jose Matute MD Unavailable [phone] Carlos Hidalgo MD Unavailable [phone] Kateryna Antonio DPT Unavailable [phone] Kateryna Antonio DPT Unavailable [phone] Johnny Hewitt MD Unavailable [phone] Pk Gutiérrez MD PhD Unavailable + Siva Jacobs MD PhD Unavailable [phone] Angeles Ray Unavailable Unavailable Encounter Details Date Type Department Care Team (Late st Contact Info) Description 06/11/2017 Orders Only [facility] CAR CLINCONV Provider, MD Evan [address] [place] [address] Social History Tobacco Use Types Packs/Day Years Used Date Smoking Tobacco: Never Assessed Comments Unknown Sex and Gender Information Value Date Recorded Sex Assigned at Not on file Legal Sex Female 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 SHEET METAL ROOFER Gender Identity Not on file Sexual Orientation Not on file documented as of this encounter Plan of Treatment Scheduled Procedures Name Priority Associated Diagnoses Date/Ti me COLONOSCOPY Iron deficiency anemia, unspecified iron deficiency anemia type ESOPHAGOGASTRODUODENOSCOPY Iron deficiency anemia, unspecified iron deficiency anemia type documented as of this encounter Procedures Procedure Name Priority Date/Time Associated Diagnosis Comments CARDIOLOGY REPORT 06/11/2017 documented in this encounter Results * CARDIOLOGY REPORT (06/11/2017) Anatomical Region Laterality Modality Other Narrative 06/11/2017 Ordered by an unspecified provider. Historical Provider CV CARDIAC SERVICES MARCELINA ALVAREZ Final Result documented in this encounter Visit Diagnoses Not on filedocumented in this encounter Additional Health Concerns Infection Onset Date Last Indicated Resolved Time MDR gram neg/ESBL 05/22/2022 02/18/2023 COVID: Suspected 02/18/2023 02/18/2023 02/19/2023 10:07 AM CDT COVID19 07/02/2024 07/02/2024 07/14/2024 3:05 AM SHEET METAL ROOFER COVID: Recovered Comment:Added based on recent COVID infection. 07/14/2024 07/21/2024 10/12/2024 3:[address] documented as of this encounter Care Teams Assembler Fluorescent Lights Relationship Specialty Start Date End Date Jose Matute MD [address] [place] [address] PCP - General 04/02/17 Pawan Eli MD [address] [place] [address] Clinical Exercise Physiologist Cardiology 02/18/18 04/29/18 Radha Carolina, RN [address] [facility] [address] [place] [address] Registered Nurse Transplant 04/17/18 Sonia Zavala Primary District Operations Manager Transplant 04/17/18 Jose Matute MD [address] [place] [address] Referring Physician Family Medicine 04/30/18 Carlos Hidalgo MD Fellow Internal Medicine 01/14/19 Kateryna Antonio DPT Physical Therapist Physical Therapy 07/16/19 12/11/19 Kateryna Antonio DPT Physical Therapist Physical Therapy 11/27/19 12/11/19 Johnny Hweitt MD Casting Cleaner Obstetrics and Gynecology 06/02/21 Pk Gutiérrez MD PhD Referring Physician Cardiology 02/23/23 Siva Jacobs MD PhD [address] [place] [address] Referring Physician Cardiology 07/04/24 Angeles Ray Primary District Operations Manager 05/28/25 documented as of this encounter
--- OUTSIDE RECORDS SUMMARY | 2025-06-27 11:28 | XMS_ITS | Encounter Summary ---
Author Organization [facility] Address [address] [place] [address] Phone Care Team Providers Care House Principal Name Role Phone Jose Matute MD Primary Care Provider [phone] Pawan Eli MD Unavailable [phone] Radha Carolina RN Unavailable + [phone] Sonia Zavala Unavailable Unavailable Jose Matute MD Unavailable [phone] Carlos Hidalgo MD Unavailable +[phone] Kateryna Antonio DPT Unavailable [phone] Kateryna Antonio DPT Unavailable [phone] Johnny Hewitt MD Unavailable [phone] Pk Gutiérrez MD PhD Unavailable + Siva Jacobs MD PhD Unavailable +[phone] Angeles Ray Unavailable Unavailable Encounter Details Date Type Department Care Team (Latest Contact Info) Description 04/16/2017 Orders Only [facility] CONVERSION Scanning, Provider Social History Tobacco Use Types Packs/Day Years Used Date Smoking Tobacco: Never Assessed Comments Unknown Sex and Gender Information Value Date Recorded Sex Assigned at Not on file Legal Sex Female 2:01 AM SCIENTIFIC PROGRAMMER ANALYST Gender Identity Not on file Sexual Orientation Not on file documented as of this encounter Plan of Treatment Scheduled Procedures Name Priority Associated Diagnoses Date/Ti me COLONOSCOPY Iron deficiency anemia, unspecified iron deficiency anemia type ESOPHAGOGASTRODUODENOSCOPY Iron deficiency anemia, unspecified iron deficiency anemia type documented as of this encounter Procedures Procedure Name Priority Date/Time Associated Diagnosis Comments VASCULAR LABORATORY REPORT 04/19/2017 10:08 AM CDT VASCULAR LABORATORY REPORT 04/19/2017 10:08 AM CDT VASCULAR LABORATORY REPORT 04/16/2017 10:13 AM CDT VASCULAR LABORATORY REPORT 04/16/2017 10:11 AM CDT VASCULAR LABORATORY REPORT 04/16/2017 10:11 AM CDT VASCULAR LABORATORY REPORT 04/16/2017 10:11 AM CDT documented in this encounter Results * VASCULAR LABORATORY REPORT (04/19/2017 10:08 AM CDT) Anatomical Region Laterality Modality Ultrasound us Provider Scanning CV VASCULAR PROCEDURES Final R esult * VASCULAR LABORATORY REPORT (04/19/2017 10:08 AM CDT) Anatomical Region Laterality Modality Ultrasound us Provider Scanning CV VASCULAR PROCEDURES Final R esult * VASCULAR LABORATORY REPORT (04/16/2017 10:13 AM CDT) Anatomical Region Laterality Modality Ultrasound us Provider Scanning CV VASCULAR PROCEDURES Final R esult * VASCULAR LABORATORY REPORT (04/16/2017 10:11 AM CDT) Anatomical Region Laterality Modality Ultrasound us Provider Scanning CV VASCULAR PROCEDURES Final R esult * VASCULAR LABORATORY REPORT (04/16/2017 10:11 AM CDT) Anatomical Region Laterality Modality Ultrasound us Provider Scanning CV VASCULAR PROCEDURES Final R esult * VASCULAR LABORATORY REPORT (04/16/2017 10:11 AM CDT) Anatomical Region Laterality Modality Ultrasound us Provider Scanning CV VASCULAR PROCEDURES Final R esult documented in this encounter Visit Diagnoses Not on filedocumented in this encounter Additional Health Concerns Infection Onset Date Last Indicated Resolved Time MDR gram neg/ESBL 05/22/2022 02/18/2023 COVID: Suspected 02/18/2023 02/18/2023 02/19/2023 10:07 AM CDT COVID19 07/02/2024 07/02/2024 07/14/2024 3:05 AM SCIENTIFIC PROGRAMMER ANALYST COVID: Recovered Comment:Added based on recent COVID infection. 07/14/2024 07/21/2024 10/12/2024 3:[address] documented as of this encounter Care Teams House Principal Relationship Specialty Start Date End Date Jose Matute MD [address] [place] [address] PCP - General 04/02/17 Pawan Eli MD [address] [place] [address] Research And Development Chemist Cardiology 02/18/18 04/29/18 Radha Carolina, MEG [address] [facility] [address] [place] [address] Registered Nurse Transplant 04/17/18 Sonia Zavala Primary Lead Laying And Gluing Machine Operator Transplant 04/17/18 Jose Matute MD [address] [place] [address] Referring Physician Family Medicine 04/30/18 Carlos Hidalgo MD Fellow Internal Medicine 01/14/19 Kateryna Antonio DPT Physical Therapist Physical Therapy 07/16/19 12/11/19 Kateryna Antonio DPT Physical Therapist Physical Therapy 11/27/19 12/11/19 Johnny Hewitt MD Meat Process Worker Obstetrics and Gynecology 06/02/21 Pk Gutiérrez MD PhD Referring Physician Cardiology 02/23/23 Siva Jacobs MD PhD [address] [facility] [address] [place] [address] Referring Physician Cardiology 07/04/24 Angeles Ray Primary Lead Laying And Gluing Machine Operator 05/28/25 documented as of this encounter
--- OUTSIDE RECORDS SUMMARY | 2025-06-27 11:28 | XMS_ITS | Encounter Summary ---
Author Organization [facility] Address [address] [place] [address] Phone Care Team Providers Care Compress Machine Operator Name Role Phone Jose Matute MD Primary Care Provider Pawan Eli MD Unavailable [phone] Radha Carolina RN Unavailable + [phone] Sonia Zavala Unavailable Unavailable Jose Matute MD Unavailable [phone] Carlos Hidalgo MD Unavailable [phone] Kateryna Antonio DPT Unavailable [phone] Kateryna Antonio DPT Unavailable [phone] Johnny Hewitt MD Unavailable [phone] Pk Gutiérrez MD PhD Unavailable + Siva Jacobs MD PhD Unavailable +[phone] Angeles Ray Unavailable Unavailable Encounter Details Date Type Department Care Team (Late st Contact Info) Description 05/23/2017 Orders Only [facility] IM CAR CLINCONV Provider, MD Evan [address] [place] [address] Social History Tobacco Use Types Packs/Day Years Used Date Smoking Tobacco: Never Assessed Comments Unknown Sex and Gender Information Value Date Recorded Sex Assigned at Not on file Legal Sex Female 2:01 AM SENIOR RUBY DEVELOPER Gender Identity Not on file Sexual Orientation Not on file documented as of this encounter Plan of Treatment Scheduled Procedures Name Priority Associated Diagnoses Date/Ti me COLONOSCOPY Iron deficiency anemia, unspecified iron deficiency anemia type ESOPHAGOGASTRODUODENOSCOPY Iron deficiency anemia, unspecified iron deficiency anemia type documented as of this encounter Procedures Procedure Name Priority Date/Time Associated Diagnosis Comments CARDIOLOGY REPORT 05/23/2017 documented in this encounter Results * CARDIOLOGY REPORT (05/23/2017) Anatomical Region Laterality Modality Other Narrative 05/23/2017 Ordered by an unspecified provider. Historical Provider CV CARDIAC SERVICES MARCELINA ALVAREZ Final Result documented in this encounter Visit Diagnoses Not on filedocumented in this encounter Additional Health Concerns Infection Onset Date Last Indicated Resolved Time MDR gram neg/ESBL 05/22/2022 02/18/2023 COVID: Suspected 02/18/2023 02/18/2023 02/19/2023 10:07 AM CDT COVID19 07/02/2024 07/02/2024 07/14/2024 3:05 AM SENIOR RUBY DEVELOPER COVID: Recovered Comment:Added based on recent COVID infection. 07/14/2024 07/21/2024 10/12/2024 3:[address] documented as of this encounter Care Teams Compress Machine Operator Relationship Specialty Start Date End Date Jose Matute MD [address] [place] [address] PCP - General 04/02/17 Pawan Eli MD [address] [place] [address] Director Of Medical Staff Services Cardiology 02/18/18 04/29/18 Radha Carolina, RN [address] [facility] [address] [place] [address] Registered Nurse Transplant 04/17/18 Sonia Zavala Primary Accounts Payable Or Receivable Clerk Transplant 04/17/18 Jose Matute MD [address] [place] [address] Referring Physician Family Medicine 04/30/18 Carlos Hidalgo MD Fellow Internal Medicine 01/14/19 Kateryna Antonio DPT Physical Therapist Physical Therapy 07/16/19 12/11/19 Kateryna Antonio DPT Physical Therapist Physical Therapy 11/27/19 12/11/19 Johnny Hewitt MD Pulp Grinder Obstetrics and Gynecology 06/02/21 Pk Gutiérrez MD PhD Referring Physician Cardiology 02/23/23 Siva Jacobs MD PhD [address] [place] [address] Referring Physician Cardiology 07/04/24 Angeles Ray Primary Accounts Payable Or Receivable Clerk 05/28/25 documented as of this encounter
--- OUTSIDE RECORDS SUMMARY | 2025-06-27 11:28 | XMS_ITS | Encounter Summary ---
Author Organization [facility] Address [address] [place] [address] Phone Care Team Providers Care Ent Consultant Name Role Phone Sonia Jim MD Primary Care Provider Jose Matute MD Primary Care Provider [phone] Sonia Jim MD Primary Care Provider Jose Matute MD Primary Care Provider Jose Matute MD Primary Care Provider [phone] Sonia Jim MD Primary Care Provider Jose Matute MD Primary Care Provider [phone] Sonia Jim MD Primary Care Provider Jose Matute MD Primary Care Provider Jose Matute MD Primary Care Provider Sonia Jim MD Primary Care Provider [phone] Jose Matute MD Primary Care Provider [phone] Pawan Eli MD Unavailable [phone] Radha Carolina RN Unavailable +[phone] Sonia Zavala Unavailable Unavailable Jose Matute MD Unavailable +[phone] Carlos Hidalgo MD Unavailable [phone] Kateryna Antonio DPT Unavailable [phone] Kateryna Antonio DPT Unavailable [phone] Johnny Hewitt MD Unavailable [phone] Pk Gutiérrez MD PhD Unavailable + Siva Jacobs MD PhD Unavailable [phone] Angeles Ray Unavailable Unavailable Encounter Details Date Type Department Care Team (Late st Contact Info) Description 06/25/2014 Orders Only [facility] IM CAR CLINCONV Provider, MD Evan [address] [place] [address] Social History Tobacco Use Types Packs/Day Years Used Date Smoking Tobacco: Never Assessed Comments Unknown Sex and Gender Information Value Date Recorded Sex Assigned at Not on file Legal Sex Female 2: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 HOSE WRAPPER Gender Identity Not on file Sexual Orientation Not on file documented as of this encounter Plan of Treatment Scheduled Procedures Name Priority Associated Diagnoses Date/Ti va COLONOSCOPY Iron deficiency anemia, unspecified iron deficiency anemia type ESOPHAGOGASTRODUODENOSCOPY Iron deficiency anemia, unspecified iron deficiency anemia type documented as of this encounter Procedures Procedure Name Priority Date/Time Associated Diagnosis Comments CARDIOLOGY REPORT 06/25/2014 documented in this encounter Results * CARDIOLOGY REPORT (06/25/2014) Anatomical Region Laterality Modality Other Narrative 06/25/2014 Ordered by an unspecified provider. Historical Provider CV CARDIAC SERVICES MARCELINA ALVAREZ Final Result documented in this encounter Visit Diagnoses Not on filedocumented in this encounter Additional Health Concerns Infection Onset Date Last Indicated Resolved Time MDR gram neg/ESBL 05/22/2022 02/18/2023 COVID: Suspected 02/18/2023 02/18/2023 02/19/2023 10:07 AM CDT COVID19 07/02/2024 07/02/2024 07/14/2024 3:05 AM HOSE WRAPPER COVID: Recovered Comment:Added based on recent COVID infection. 07/14/2024 07/21/2024 10/12/2024 3:[address] documented as of this encounter Care Teams Ent Consultant Relationship Specialty Start Date End Date Sonia Jim MD PCP - General 12/05/16 02/26/17 Jose Matute MD [address] [place] [address] PCP - General 02/27/17 02/27/17 Sonia Jim MD PCP - General 02/28/17 03/03/17 Jose Matute MD [address] [place] [address] PCP - General 03/04/17 03/04/17 Jose Matute MD [address] [place] [address] PCP - General 03/05/17 03/05/17 Sonia Jim MD PCP - General 03/06/17 03/08/17 Jose Matute MD [address] [place] [address] PCP - General 03/09/17 03/15/17 Sonia Jim MD PCP - General 03/16/17 03/19/17 Jose Matute MD [address] [place] [address] PCP - General 03/20/17 03/25/17 Jose Matute MD [address] [place] [address] PCP - General 03/26/17 03/28/17 Sonia Jim MD PCP - General 03/29/17 04/01/17 Jose Matute MD [address] [place] [address] PCP - General 04/02/17 Pawan Eli MD [address] [place] [address] Automation Controls Specialist Cardiology 02/18/18 04/29/18 Radha Carolina, RN [address] [facility] [address] [place] [address] Registered Nurse Transplant 04/17/18 Sonia Zavala Primary Climatologist Transplant 04/17/18 Jose Matute MD [address] [place] [address] Referring Physician Family Medicine 04/30/18 Carlos Hidalgo MD Fellow Internal Medicine 01/14/19 Kateryna Antonio DPT Physical Therapist Physical Therapy 07/16/19 12/11/19 Kateryna Antonio DPT Physical Therapist Physical Therapy 11/27/19 12/11/19 Johnny Hewitt MD Shelver Obstetrics and Gynecology 06/02/21 Pk Gutiérrez MD PhD Referring Physician Cardiology 02/23/23 Siva Jacobs MD PhD [address] [address] Referring Physician Cardiology 07/04/24 Angeles Ray Primary Climatologist 05/28/25 documented as of this encounter
--- OUTSIDE RECORDS SUMMARY | 2025-06-27 11:28 | XMS_ITS | Encounter Summary ---
Author Organization [facility] Address [address] [place] [address] Phone Care Team Providers Care Administrative Dietitian Name Role Phone Sonia Jim MD Primary Care Provider Jose Matute MD Primary Care Provider Sonia Jim MD Primary Care Provider Jose Matute MD Primary Care Provider Jose Matute MD Primary Care Provider [phone] Sonia Jim MD Primary Care Provider Jose Matute MD Primary Care Provider Sonia Jim MD Primary Care Provider Jose Matute MD Primary Care Provider Jose Matute MD Primary Care Provider [phone] Sonia Jim MD Primary Care Provider [phone] Jose Matute MD Primary Care Provider [phone] Pawan Eli MD Unavailable [phone] Radha Carolina RN Unavailable +[phone] Sonia Zavala Unavailable Unavailable Jose Matute MD Unavailable +[phone] Carlos Hidalgo MD Unavailable [phone] Kateryna Antonio DPT Unavailable [phone] Kateryna Antonio DPT Unavailable [phone] Johnny Hewitt MD Unavailable [phone] Pk Gutiérrez MD PhD Unavailable + Siva Jacobs MD PhD Unavailable +[phone] Angeles Ray Unavailable Unavailable Encounter Details Date Type Department Care Team (Late st Contact Info) Description 02/18/2017 Orders Only [facility]IN[facility] Provider, MD Evan [address] [place] [address] Social History Tobacco Use Types Packs/Day Years Used Date Smoking Tobacco: Never Assessed Comments Unknown Sex and Gender Information Value Date Recorded Sex Assigned at Not on file 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 Gender Identity Not on file Sexual Orientation Not on file documented as of this encounter Plan of Treatment Scheduled Procedures Name Priority Associated Diagnoses Date/Ti vt COLONOSCOPY Iron deficiency anemia, unspecified iron deficiency anemia type ESOPHAGOGASTRODUODENOSCOPY Iron deficiency anemia, unspecified iron deficiency anemia type documented as of this encounter Procedures Procedure Name Priority Date/Time Associated Diagnosis Comments CARDIOLOGY REPORT 02/18/2017 CARDIOLOGY REPORT 02/18/2017 documented in this encounter Results * CARDIOLOGY REPORT (02/18/2017) Anatomical Region Laterality Modality Other Narrative 02/18/2017 Ordered by an unspecified provider. Historical Provider [facility] MARCELINA ALVAREZ Final Result * CARDIOLOGY REPORT (02/18/2017) Anatomical Region Laterality Modality Other Narrative 02/18/2017 Ordered by an unspecified provider. us Historical Provider [facility] MARCELINA ALVAREZ Final Result documented in this encounter Visit Diagnoses Not on filedocumented in this encounter Additional Health Concerns Infection Onset Date Last Indicated Resolved Time MDR gram neg/ESBL 05/22/2022 02/18/2023 COVID: Suspected 02/18/2023 02/18/2023 02/19/2023 10:07 AM CDT COVID19 07/02/2024 07/02/2024 07/14/2024 3:05 AM RABBIT BREEDER COVID: Recovered Comment:Added based on recent COVID infection. 07/14/2024 07/21/2024 10/12/2024 3:[address] documented as of this encounter Care Teams Administrative Dietitian Relationship Specialty Start Date End Date Sonia Jim MD PCP - General 12/05/16 02/26/17 Jose Matute MD [address] [place], [place] [id number] PCP - General 02/27/17 02/27/17 Sonia Jim MD PCP - General 02/28/17 03/03/17 Jose Matute MD [address] [place], [place] [address] PCP - General 03/04/17 03/04/17 Jose Matute MD [address] [place], [place] [address] PCP - General 03/05/17 03/05/17 Sonia Jim MD PCP - General 03/06/17 03/08/17 Jose Matute MD [address] [facility] [place] [address] PCP - General 03/09/17 03/15/17 Sonia Jim MD PCP - General 03/16/17 03/19/17 Jose Matute MD [address] [facility] [place] [address] PCP - General 03/20/17 03/25/17 Jose Matute MD [address] [facility] [place] [address] PCP - General 03/26/17 03/28/17 Sonia Jim MD PCP - General 03/29/17 04/01/17 Jose Matute MD [address] [facility] [place] [address] PCP - General 04/02/17 Pawan Eli MD [address] [place] [address] Passenger Elevator Operator Cardiology 02/18/18 04/29/18 Radha Carolina, RN [address] [place] [address] Registered Nurse Transplant 04/17/18 Sonia Zavala Primary Undercoat Sprayer Transplant 04/17/18 Jose Matute MD [address] [place] [address] Referring Physician Family Medicine 04/30/18 Carlos Hidalgo MD Fellow Internal Medicine 01/14/19 Kateryna Antonio DPT Physical Therapist Physical Therapy 07/16/19 12/11/19 Kateryna Antonio DPT Physical Therapist Physical Therapy 11/27/19 12/11/19 Johnny Hewitt MD Medical Language Specialist Obstetrics and Gynecology 06/02/21 Pk Gutiérrez MD PhD Referring Physician Cardiology 02/23/23 Siva Jacobs MD PhD [address] [place] [address] Referring Physician Cardiology 07/04/24 Angeles Ray Primary Undercoat Sprayer 05/28/25 documented as of this encounter
--- OUTSIDE RECORDS SUMMARY | 2025-06-27 11:28 | XMS_ITS | Encounter Summary ---
Author Organization [facility] Address [address] [place] [address] Phone Care Team Providers Care Hydraulic Press In Operator Name Role Phone Sonia Jim MD Primary Care Provider Jose Matute MD Primary Care Provider [phone] Sonia Jim MD Primary Care Provider Jose Matute MD Primary Care Provider Jose Matute MD Primary Care Provider Sonia Jim MD Primary Care Provider Jose Matute MD Primary Care Provider Sonia Jim MD Primary Care Provider Jose Matute MD Primary Care Provider Jose Matute MD Primary Care Provider [phone] Sonia Jim MD Primary Care Provider [phone] Jose Matute MD Primary Care Provider [phone] Pawan Eli MD Unavailable +[phone] Radha Carolina RN Unavailable [phone] Sonia Zavala Unavailable Unavailable Jose Matute MD Unavailable +[phone] Carlos Hidalgo MD Unavailable [phone] Kateryna Antonio DPT Unavailable [phone] Kateryna Antonio DPT Unavailable [phone] Johnny Hewitt MD Unavailable [phone] Pk Gutiérrez MD PhD Unavailable + Siva Jacobs MD PhD Unavailable [phone] Angeles Ray Unavailable Unavailable Encounter Details Date Type Department Care Team (Late st Contact Info) Description 04/09/2014 Orders Only [facility] CLINCONV Provider, MD Evan [address] [place] [address] Social History Tobacco Use Types Packs/Day Years Used Date Smoking Tobacco: Never Assessed Comments Unknown Sex and Gender Information Value Date Recorded Sex Assigned at Not on file 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 Gender Identity Not on file Sexual Orientation Not on file documented as of this encounter Plan of Treatment Scheduled Procedures Name Priority Associated Diagnoses Date/Ti ut COLONOSCOPY Iron deficiency anemia, unspecified iron deficiency anemia type ESOPHAGOGASTRODUODENOSCOPY Iron deficiency anemia, unspecified iron deficiency anemia type documented as of this encounter Procedures Procedure Name Priority Date/Time Associated Diagnosis Comments CARDIOLOGY REPORT 04/09/2014 documented in this encounter Results * CARDIOLOGY REPORT (04/09/2014) Anatomical Region Laterality Modality Other Narrative 04/09/2014 Ordered by an unspecified provider. Historical Provider [facility] MARCELINA ALVAREZ Final Result documented in this encounter Visit Diagnoses Not on filedocumented in this encounter Additional Health Concerns Infection Onset Date Last Indicated Resolved Time MDR gram neg/ESBL 05/22/2022 02/18/2023 COVID: Suspected 02/18/2023 02/18/2023 02/19/2023 10:07 AM CDT COVID19 07/02/2024 07/02/2024 07/14/2024 3:05 AM SCHOOL BUSINESS ADMINISTRATOR COVID: Recovered Comment:Added based on recent COVID infection. 07/14/2024 07/21/2024 10/12/2024 3:[address] documented as of this encounter Care Teams Hydraulic Press In Operator Relationship Specialty Start Date End Date Sonia Jim MD PCP - General 12/05/16 02/26/17 Jose Matute MD [address] [place] [address] PCP - General 02/27/17 02/27/17 Sonia Jim MD PCP - General 02/28/17 03/03/17 Jose Matute MD [address] [place] [address] PCP - General 03/04/17 03/04/17 Jose Matute MD [address] [place] [address] PCP - General 03/05/17 03/05/17 Sonia Jim MD PCP - General 03/06/17 03/08/17 Jose Matute MD [address] [place] [address] PCP - General 03/09/17 03/15/17 Sonia Jim MD PCP - General 03/16/17 03/19/17 Jose Matute MD [address] [place] [address] PCP - General 03/20/17 03/25/17 Jose Matute MD [address] [place] [address] PCP - General 03/26/17 03/28/17 Sonia Jim MD PCP - General 03/29/17 04/01/17 Jose Matute MD [address] [place] [address] PCP - General 04/02/17 Pawan Eli MD [address] [place] [address] Sand Screener Cardiology 02/18/18 04/29/18 Radha Carolina, RN [address] [facility] [address] [place] [address] Registered Nurse Transplant 04/17/18 Sonia Zavala Primary Personnel Assistant Transplant 04/17/18 Jose Matute MD [address] [place] [address] Referring Physician Family Medicine 04/30/18 Carlos Hidalgo MD Fellow Internal Medicine 01/14/19 Kateryna Antonio DPT Physical Therapist Physical Therapy 07/16/19 12/11/19 Kateryna Antonio DPT Physical Therapist Physical Therapy 11/27/19 12/11/19 Johnny Hewitt MD Steel Rod Buster Obstetrics and Gynecology 06/02/21 Pk Gutiérrez MD PhD Referring Physician Cardiology 02/23/23 Siva Jacobs MD PhD [address] [address] Referring Physician Cardiology 07/04/24 Angeles Ray Primary Personnel Assistant 05/28/25 documented as of this encounter
--- OUTSIDE RECORDS SUMMARY | 2025-06-27 11:28 | XMS_ITS | Encounter Summary ---
Author Organization [facility] Address [address] [place] [address] Phone Care Team Providers Care Cold Rolling Coordinator Name Role Phone Jose Matute MD Primary Care Provider Pawan Eli MD Unavailable [phone] Radha Carolina RN Unavailable + [phone] Sonia Zavala Unavailable Unavailable Jose Matute MD Unavailable [phone] Carlos Hidalgo MD Unavailable [phone] Kateryna Antonio DPT Unavailable [phone] Kateyrna Antonio DPT Unavailable [phone] Johnny Hewitt MD Unavailable [phone] Pk Gutiérrez MD PhD Unavailable + Siva Jacobs MD PhD Unavailable [phone] Angeles Ray Unavailable Unavailable Encounter Details Date Type Department Care Team (Late st Contact Info) Description 07/06/2017 Orders Only [facility] CAR CLINCONV Provider, MD Evan [address] [place] [address] Social History Tobacco Use Types Packs/Day Years Used Date Smoking Tobacco: Never Assessed Comments Unknown Sex and Gender Information Value Date Recorded Sex Assigned at Not on file Legal Sex Female 2:01 AM ER NURSE Gender Identity Not on file Sexual Orientation Not on file documented as of this encounter Plan of Treatment Scheduled Procedures Name Priority Associated Diagnoses Date/Ti me COLONOSCOPY Iron deficiency anemia, unspecified iron deficiency anemia type ESOPHAGOGASTRODUODENOSCOPY Iron deficiency anemia, unspecified iron deficiency anemia type documented as of this encounter Procedures Procedure Name Priority Date/Time Associated Diagnosis Comments CARDIOLOGY REPORT 07/06/2017 documented in this encounter Results * CARDIOLOGY REPORT (07/06/2017) Anatomical Region Laterality Modality Other Narrative 07/06/2017 Ordered by an unspecified provider. Historical Provider CV CARDIAC SERVICES MARCELINA ALVAREZ Final Result documented in this encounter Visit Diagnoses Not on filedocumented in this encounter Additional Health Concerns Infection Onset Date Last Indicated Resolved Time MDR gram neg/ESBL 05/22/2022 02/18/2023 COVID: Suspected 02/18/2023 02/18/2023 02/19/2023 10:07 AM CDT COVID19 07/02/2024 07/02/2024 07/14/2024 3:05 AM ER NURSE COVID: Recovered Comment:Added based on recent COVID infection. 07/14/2024 07/21/2024 10/12/2024 3:[address] documented as of this encounter Care Teams Cold Rolling Coordinator Relationship Specialty Start Date End Date Jose Matute MD [address] [place] [address] PCP - General 04/02/17 Pawan Eli MD [address] [place] [address] Field Clerk Cardiology 02/18/18 04/29/18 Radha Carolina, RN [address] [place] [address] Registered Nurse Transplant 04/17/18 Sonia Zavala Primary Marketing Communications Assistant Transplant 04/17/18 Jose Matute MD [address] [place] [address] Referring Physician Family Medicine 04/30/18 Carlos Hidalgo MD Fellow Internal Medicine 01/14/19 Kateryna Antonio DPT Physical Therapist Physical Therapy 07/16/19 12/11/19 Kateryna Antonio DPT Physical Therapist Physical Therapy 11/27/19 12/11/19 Johnny Hewitt MD Behavioral Health Director Obstetrics and Gynecology 06/02/21 Pk Gutiérrez MD PhD Referring Physician Cardiology 02/23/23 Siva Jacobs MD PhD [address] [place] [address] Referring Physician Cardiology 07/04/24 Angeles Ray Primary Marketing Communications Assistant 05/28/25 documented as of this encounter
--- OUTSIDE RECORDS SUMMARY | 2025-06-27 11:28 | XMS_ITS | Encounter Summary ---
Author Organization [facility] Address [address] [place] [address] Phone Care Team Providers Care Bi Analyst Name Role Phone Sonia Jim MD Primary Care Provider Jose Matute MD Primary Care Provider Sonia Jim MD Primary Care Provider Jose Matute MD Primary Care Provider Jose Matute MD Primary Care Provider Sonia Jim MD Primary Care Provider Jose Matute MD Primary Care Provider [phone] Sonia Jim MD Primary Care Provider Jose Matute MD Primary Care Provider [phone] Jose Matute MD Primary Care Provider Sonia Jim MD Primary Care Provider [phone] Jose Matute MD Primary Care Provider [phone] Pawan Eli MD Unavailable [phone] Radha Carolina RN Unavailable [phone] Sonia Zavala Unavailable Unavailable Jose Matute MD Unavailable [phone] Carlos Hidalgo MD Unavailable [phone] Kateryna Antonio DPT Unavailable [phone] Kateryna Antonio DPT Unavailable [phone] Johnny Hewitt MD Unavailable [phone] Pk Gutiérrez MD PhD Unavailable + Siva Jacobs MD PhD Unavailable [phone] Angeles Ray Unavailable Unavailable Encounter Details Date Type Department Care Team (Late st Contact Info) Description 11/25/2014 Orders Only [facility] CAR CLINCONV Provider, MD Evan [address] [place] [address] Social History Tobacco Use Types Packs/Day Years Used Date Smoking Tobacco: Never Assessed Comments Unknown Sex and Gender Information Value Date Recorded Sex Assigned at Not on file 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 Sex Female 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 APPRENTICE Gender Identity Not on file Sexual Orientation Not on file documented as of this encounter Plan of Treatment Scheduled Procedures Name Priority Associated Diagnoses Date/Ti sd COLONOSCOPY Iron deficiency anemia, unspecified iron deficiency anemia type ESOPHAGOGASTRODUODENOSCOPY Iron deficiency anemia, unspecified iron deficiency anemia type documented as of this encounter Procedures Procedure Name Priority Date/Time Associated Diagnosis Comments CARDIOLOGY REPORT 11/25/2014 documented in this encounter Results * CARDIOLOGY REPORT (11/25/2014) Anatomical Region Laterality Modality Other Narrative 11/25/2014 Ordered by an unspecified provider. Historical Provider [facility] CARDIAC SERVICES MARCELINA ALVAREZ Final Result documented in this encounter Visit Diagnoses Not on filedocumented in this encounter Additional Health Concerns Infection Onset Date Last Indicated Resolved Time MDR gram neg/ESBL 05/22/2022 02/18/2023 COVID: Suspected 02/18/2023 02/18/2023 02/19/2023 10:07 AM CDT COVID19 07/02/2024 07/02/2024 07/14/2024 3:05 AM LOOM FIXER APPRENTICE COVID: Recovered Comment:Added based on recent COVID infection. 07/14/2024 07/21/2024 10/12/2024 3:[address] documented as of this encounter Care Teams Bi Analyst Relationship Specialty Start Date End Date Sonia Jim MD PCP - General 12/05/16 02/26/17 Jose Matute MD [address] [place] [address] PCP - General 02/27/17 02/27/17 Sonia Jim MD PCP - General 02/28/17 03/03/17 Jose Matute MD [address] [place] [address] PCP - General 03/04/17 03/04/17 Jose Matute MD [address] [place] [address] PCP - General 03/05/17 03/05/17 Sonia Jim MD PCP - General 03/06/17 03/08/17 Jose Matute MD [address] [place] [address] PCP - General 03/09/17 03/15/17 Sonia Jim MD PCP - General 03/16/17 03/19/17 Jose Matute MD [address] [place] [address] PCP - General 03/20/17 03/25/17 Jose Matute MD [address] [place] [address] PCP - General 03/26/17 03/28/17 Sonia Jim MD PCP - General 03/29/17 04/01/17 Jose Matute MD [address] [place] [address] PCP - General 04/02/17 Pawan Eli MD [address] [place] [address] Coil Tier Cardiology 02/18/18 04/29/18 Radha Carolina, RN [address] [facility] [address] [place] [address] Registered Nurse Transplant 04/17/18 Sonia Zavala Primary Medical Services Assistant Transplant 04/17/18 Jose Matute MD [address] [place] [address] Referring Physician Family Medicine 04/30/18 Carlos Hidalgo MD Fellow Internal Medicine 01/14/19 Kateryna Antonio DPT Physical Therapist Physical Therapy 07/16/19 12/11/19 Kateryna Antonio DPT Physical Therapist Physical Therapy 11/27/19 12/11/19 Johnny Hewitt MD Steam Hand Obstetrics and Gynecology 06/02/21 Pk Gutiérrez MD PhD Referring Physician Cardiology 02/23/23 Siva Jacobs MD PhD [address] [address] Referring Physician Cardiology 07/04/24 Angeles Ray Primary Medical Services Assistant 05/28/25 documented as of this encounter
--- OUTSIDE RECORDS SUMMARY | 2025-06-27 11:28 | XMS_ITS | Encounter Summary ---
Author Organization [facility] Address [address] [place] [address] Phone Care Team Providers Care Older Worker Specialist Name Role Phone Sonia Jim MD Primary Care Provider Jose Matute MD Primary Care Provider Sonia Jim MD Primary Care Provider Jose Matute MD Primary Care Provider [phone] Jose Matute MD Primary Care Provider Sonia Jim MD Primary Care Provider Jose Matute MD Primary Care Provider [phone] Sonia Jim MD Primary Care Provider Jose Matute MD Primary Care Provider Jose Matute MD Primary Care Provider Sonia Jim MD Primary Care Provider [phone] Jose Matute MD Primary Care Provider [phone] Pawan Eli MD Unavailable [phone] Radha Carolina RN Unavailable [phone] Sonia Zavala Unavailable Unavailable Jose Matute MD Unavailable +[phone] Carlos Hidalgo MD Unavailable +[phone] Kateryna Antonio DPT Unavailable [phone] Kateryna Antonio DPT Unavailable [phone] Johnny Hewitt MD Unavailable [phone] Pk Gutiérrez MD PhD Unavailable + Siva Jacobs MD PhD Unavailable [phone] Angeles Ray Unavailable Unavailable Encounter Details Date Type Department Care Team (Late st Contact Info) Description 12/02/2013 Orders Only [facility] CAR CLINCONV Provider, MD Evan [address] [place] [address] Social History Tobacco Use Types Packs/Day Years Used Date Smoking Tobacco: Never Assessed Comments Unknown Sex and Gender Information Value Date Recorded Sex Assigned at Not on file 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 Sex Female 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 Gender Identity Not on file Sexual Orientation Not on file documented as of this encounter Plan of Treatment Scheduled Procedures Name Priority Associated Diagnoses Date/Ti nh COLONOSCOPY Iron deficiency anemia, unspecified iron deficiency anemia type ESOPHAGOGASTRODUODENOSCOPY Iron deficiency anemia, unspecified iron deficiency anemia type documented as of this encounter Procedures Procedure Name Priority Date/Time Associated Diagnosis Comments CARDIOLOGY REPORT 12/02/2013 documented in this encounter Results * CARDIOLOGY REPORT (12/02/2013) Anatomical Region Laterality Modality Other Narrative 12/02/2013 Ordered by an unspecified provider. Historical Provider CV CARDIAC SERVICES MARCELINA ALVAREZ Final Result documented in this encounter Visit Diagnoses Not on filedocumented in this encounter Additional Health Concerns Infection Onset Date Last Indicated Resolved Time MDR gram neg/ESBL 05/22/2022 02/18/2023 COVID: Suspected 02/18/2023 02/18/2023 02/19/2023 10:07 AM CDT COVID19 07/02/2024 07/02/2024 07/14/2024 3:05 AM SUPERVISOR PARKING LOT COVID: Recovered Comment:Added based on recent COVID infection. 07/14/2024 07/21/2024 10/12/2024 3:[address] documented as of this encounter Care Teams Older Worker Specialist Relationship Specialty Start Date End Date Sonia Jim MD PCP - General 12/05/16 02/26/17 Jose Matute MD [address] [place] [address] PCP - General 02/27/17 02/27/17 Sonia Jim MD PCP - General 02/28/17 03/03/17 Jose Matute MD [address] [place] [address] PCP - General 03/04/17 03/04/17 Jose Matute MD [address] [place] [address] PCP - General 03/05/17 03/05/17 Sonia Jim MD PCP - General 03/06/17 03/08/17 Jose Matute MD [address] [place] [address] PCP - General 03/09/17 03/15/17 Sonia Jim MD PCP - General 03/16/17 03/19/17 Jose Matute MD [address] [place] [address] PCP - General 03/20/17 03/25/17 Jose Matute MD [address] [place] [address] PCP - General 03/26/17 03/28/17 Sonia Jim MD PCP - General 03/29/17 04/01/17 Jose Matute MD [address] [place] [address] PCP - General 04/02/17 Pawan Eli MD [address] [place] [address] Agricultural Extension Agent Cardiology 02/18/18 04/29/18 Radha Carolina, RN [address] [facility] [address] [place] [address] Registered Nurse Transplant 04/17/18 Sonia Zavala Primary Chemical Sales Representative Transplant 04/17/18 Jose Matute MD [address] [place] [address] Referring Physician Family Medicine 04/30/18 Carlos Hidalgo MD Fellow Internal Medicine 01/14/19 Kateryna Antonio DPT Physical Therapist Physical Therapy 07/16/19 12/11/19 Kateryna Antonio DPT Physical Therapist Physical Therapy 11/27/19 12/11/19 Johnny Hewitt MD Truck Caterer Obstetrics and Gynecology 06/02/21 Pk Gutiérrez MD PhD Referring Physician Cardiology 02/23/23 Siva Jacobs MD PhD [address] [address] Referring Physician Cardiology 07/04/24 Angeles Ray Primary Chemical Sales Representative 05/28/25 documented as of this encounter
--- OUTSIDE RECORDS SUMMARY | 2025-06-27 11:29 | XMS_ITS | Encounter Summary ---
Author Organization [facility] Address [address] [place] [address] Phone Care Team Providers Care Insole Filler Name Role Phone Jose Matute MD Primary Care Provider [phone] Radha Carolina RN Unavailable [phone] Sonia Zavala Unavailable Unavailable Jose Matute MD Unavailable [phone] Carlos Hidalgo MD Unavailable [phone] Kateryna Antonio DPT Unavailable [phone] Kateryna Antonio DPT Unavailable [phone] Johnny Hewitt MD Unavailable [phone] Pk Gutiérrez MD PhD Unavailable + Siva Jacobs MD PhD Unavailable [phone] Angeles Ray Unavailable Unavailable Encounter Details Date Type Department Care Team (Late st Contact Info) Description 08/26/2018 Telephone [facility] [address] [facility] 8[address] [place] [address] [place] [address] Aissatou Horner, MPH Social History Tobacco Use Types Packs/Day Years Used Date Smoking Tobacco: Former Cigarettes 1 21 0 09/10/1987 - 09/10/2008 Smokeless Tobacco: Never Alcohol Use Standard Drinks/Week Comments No 0 (1 standard drink = 0.6 oz pur e alcohol) Comments No Sex and Gender Information Value Date Recorded Sex Assigned at Not on file 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 Gender Identity Not on file Sexual Orientation Not on file documented as of this encounter Plan of Treatment Scheduled Procedures Name Priority Associated Diagnoses Date/Ti va COLONOSCOPY Iron deficiency anemia, unspecified iron deficiency anemia type ESOPHAGOGASTRODUODENOSCOPY Iron deficiency anemia, unspecified iron deficiency anemia type documented as of this encounter Visit Diagnoses Not on filedocumented in this encounter Additional Health Concerns Infection Onset Date Last Indicated Resolved Time MDR gram neg/ESBL 05/22/2022 02/18/2023 COVID: Suspected 02/18/2023 02/18/2023 02/19/2023 10:07 AM CDT COVID19 07/02/2024 07/02/2024 07/14/2024 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 07/14/2024 07/21/2024 10/12/2024 3:[address] documented as of this encounter Care Teams Insole Filler Relationship Specialty Start Date End Date Jose Matute MD [address] [place] [address] PCP - General 04/02/17 Radha Carolina, RN [address] [facility] [address] [place] [id number] Registered Nurse Transplant 04/17/18 Sonia Zavala Primary Associate Professor Physician Transplant 04/17/18 Jose Matute MD [address] [place] [address] Referring Physician Family Medicine 04/30/18 Carlos Hidalgo MD Fellow Internal Medicine 01/14/19 Kateryna Antonio DPT Physical Therapist Physical Therapy 07/16/19 12/11/19 Kateryna Antonio DPT Physical Therapist Physical Therapy 11/27/19 12/11/19 Johnny Hewitt MD [employer] Pump Operator Obstetrics and Gynecology 06/02/21 Pk Gutiérrez MD PhD Referring Physician Cardiology 02/23/23 Siva Jacobs MD PhD [address] [address] Referring Physician Cardiology 07/04/24 Angeles Ray Primary Associate Professor Physician 05/28/25 documented as of this encounter
--- OUTSIDE RECORDS SUMMARY | 2025-06-27 11:29 | XMS_ITS ---
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 tachycardia, fevers, chills, with obstructive L ureteral stone and LUTS. UA with >50 WBC, LE3+. WBC 21.8, diaphoretic. UCx with e.coli suarez susceptible at OSH, CT C/A/P with new 1.3 cm right middle lobe pulm nodule likely infectious. BCx with GPC methicillin resistant staph epi 06/30. Now off pressors, afebrile, HDS, leukocytosis downtrending. -S/p L stent placement 06/25, plan to address nephrolithiasis in 2-4 weeks -Abx: Vancomycin (06/25), cefepime (06/26), flagyl (06/25), ceftriaxone (06/26), vanc (06/27-06/29), yazmin (06/27-06/29), CTX (06/29-06/30), rebroadened to vanc (06/30-07/04) and yazmin (06/30-07/04), resumed CTX (07/04- ) -Discontinued stress dose steroids 06/29 -ID recs: Continue ceftriaxone thru 07/13 (stone removal scheduled for 07/12) -Right UE duplex did not show any clot--vascular access consulted for PICC placement -Urology to do cysto/stone removal on 07/12: NPO -OK to continue hpn gtt per urology Assessment & Plan (07/11/2021 10:43 AM CDT): Patient with hypotension, tachycardia, fevers, chills, with obstructive L ureteral stone and LUTS. UA with >50 WBC, LE3+. WBC 21.8, diaphoretic. UCx with e.coli suarez susceptible at OSH, CT C/A/P with new 1.3 cm right middle lobe pulm nodule likely infectious. BCx with GPC methicillin resistant staph epi 06/30. Now off pressors, afebrile, HDS, leukocytosis downtrending. -S/p L stent placement 06/25, plan to address nephrolithiasis in 2-4 weeks -Abx: Vancomycin (06/25), cefepime (06/26), flagyl (06/25), ceftriaxone (06/26), vanc (06/27-06/29), yazmin (06/27-06/29), CTX (06/29-06/30), rebroadened to vanc (06/30-07/04) and yazmin (06/30-07/04), resumed CTX (07/04- ) -Discontinued stress dose steroids 06/29 -ID recs: Continue ceftriaxone thru 07/13 (stone removal scheduled for 07/12) -Right UE duplex did not show any clot--vascular access consulted for PICC placement -Urology to do cysto/stone removal on 07/12 -OK to continue hpn gtt per urology -IPAP consulted for pre-op work-up Assessment & Plan (07/08/2021 10:13 AM CDT): Patient with hypotension, tachycardia, fevers, chills, with obstructive L ureteral stone and LUTS. UA with >50 WBC, LE3+. WBC 21.8, diaphoretic. UCx with e.coli suarez susceptible at OSH, CT C/A/P with new 1.3 cm right middle lobe pulm nodule likely infectious. BCx with GPC methicillin resistant staph epi 06/30. Now off pressors, afebrile, HDS, leukocytosis downtrending. -S/p L stent placement 06/25, plan to address nephrolithiasis in 2-4 weeks -Abx: Vancomycin (06/25), cefepime (06/26), flagyl (06/25), ceftriaxone (06/26), vanc (06/27-06/29), yazmin (06/27-06/29), CTX (06/29-06/30), rebroadened to vanc (06/30-07/04) and yazmin (06/30-07/04), resumed CTX (07/04-07/11) -Discontinued stress dose steroids 06/29 -ID recs: Continue ceftriaxone thru 07/13 (stone removal scheduled for 07/12) -right UE duplex did not show any clot--vascular access consulted for PICC placement -Urology to do cysto/stone removal on 07/12 Currently on lovenox- plan for procedure on 07/12 : will need to hold lovenox night before . -IPAP consulted for pre-op work-up Assessment & Plan (07/07/2021 11:49 AM CDT): Patient with hypotension, tachycardia, fevers, chills, with obstructive L ureteral stone and LUTS. UA with >50 WBC, LE3+. WBC 21.8, diaphoretic. UCx with e.coli suarez susceptible at OSH, CT C/A/P with new 1.3 cm right middle lobe pulm nodule likely infectious. BCx with GPC methicillin resistant staph epi 06/30. Now off pressors, afebrile, HDS, leukocytosis downtrending. -S/p L stent placement 06/25, plan to address nephrolithiasis in 2-4 weeks -Abx: Vancomycin (06/25), cefepime (06/26), flagyl (06/25), ceftriaxone (06/26), vanc (06/27-06/29), yazmin (06/27-06/29), CTX (06/29-06/30), rebroadened to vanc (06/30-07/04) and yazmin (06/30-07/04), resumed CTX (07/04-07/11) -Discontinued stress dose steroids 06/29 -ID recs: Continue ceftriaxone thru 07/13 (stone removal scheduled for 07/12) -right UE duplex did not show any clot--vascular access consulted for PICC placement -Urology to do cysto/stone removal on 07/12 -anticipate changing heparin gtt --> lovenox for periprocedure anticoagulation (eventual transition post stone removal to NOAC) -IPAP consulted for pre-op work-up Assessment & Plan (07/06/2021 11:58 AM CDT): Patient with hypotension, tachycardia, fevers, chills, with obstructive L ureteral stone and LUTS. UA with >50 WBC, LE3+. WBC 21.8, diaphoretic. UCx with e.coli suarez susceptible at OSH, CT C/A/P with new 1.3 cm right middle lobe pulm nodule likely infectious. BCx with GPC methicillin resistant staph epi 06/30. Now off pressors, afebrile, HDS, leukocytosis downtrending. -S/p L stent placement 06/25, plan to address nephrolithiasis in 2-4 weeks -Abx: Vancomycin (06/25), cefepime (06/26), flagyl (06/25), ceftriaxone (06/26), vanc (06/27-06/29), yazmin (06/27-06/29), CTX (06/29-06/30), rebroadened to vanc (06/30-07/04) and yazmin (06/30-07/04), resumed CTX (07/04-07/11) -Discontinued stress dose steroids 06/29 -ID recs: Complete at least 2 weeks of tx from 06/27 (06/27-07/11). Prefer stone removal prior to completing abx therapy. BC positivity likely contaminants, can stop daily BC, no need for tx. -Urology to do cysto/stone removal after abx course complete--await recs re: hailey procedural anticoagulation which will drive plan of care -will place PICC line today Assessment & Plan (07/05/2021 4:51 PM CDT): Patient with hypotension, tachycardia, fevers, chills, with obstructive L ureteral stone and LUTS. UA with >50 WBC, LE3+. WBC 21.8, diaphoretic. UCx with e.coli suarez susceptible at OSH, CT C/A/P with new 1.3 cm right middle lobe pulm nodule likely infectious. BCx with GPC methicillin resistant staph epi 06/30. Now off pressors, afebrile, HDS, leukocytosis downtrending. -S/p L stent placement 06/25, plan to address nephrolithiasis in 2-4 weeks -Abx: Vancomycin (06/25), cefepime (06/26), flagyl (06/25), ceftriaxone (06/26), vanc (06/27-06/29), yazmin (06/27-06/29), CTX (06/29-06/30), rebroadened to vanc (06/30-07/04) and yazmin (06/30-07/04), resumed CTX (07/04-07/11) -Discontinued stress dose steroids 06/29 -Discussed with urology the possibility stone removal prior to completion of abx therapy--will wait for final recs after discussing with urology attending. -ID recs: Complete at least 2 weeks of tx from 06/27 (06/27-07/11). Prefer stone removal prior to completing abx therapy. BC positivity likely contaminants, can stop daily BC, no need for tx. 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 No evidence of proptosis, return as scheduled with Dr. Murdock, sooner prn Assessment & Plan (04/11/2022 5:07 PM CDT): Complete lid closure, no cornea stain or conj chemosis. Cont ATs BID+ both eyes (OU) Attempted to schedule in plastics last yr, hasn't been evaluated yet, but no signs active disease Assessment & Plan (04/05/2021 1:58 PM CDT): Refer to oculoplastics for eval. 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 No diplopia nor eom restriction. Recommend PFATs TID both eyes (OU). Labs today. Letter to PCP. Refraction disorder 04/05/2021 Assessment & Plan (07/31/2024 10:28 AM STAFFING COORDINATOR): Pt is asymptomatic. Defer cataract extraction (CE) until signs/sx indicate. Recommend UV eye protection. 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 H/o hypothyroidism- eoms full, no corneal staining. Pt not interested in surgical removal at this time. Healthcare maintenance 03/19/2020 Overview (03/19/2020): Added automatically from request for surgery [id number] Contracture of muscle of left hand 06/18/2019 Overview (06/18/2019): Added automatically from request for surgery [id number] Seasonal allergic rhinitis 06/02/2019 Renal cyst 05/06/2019 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 02/19/2019 Overview (02/19/2019): Added automatically from request for surgery [id number] Assessment & Plan (07/03/2024 3:00 PM CDT): - euvolemic and warm on exam - continue home Cellcept 500 mg BID and tacro 1 mg BID - tacro level daily - continue home metoprolol XL and Lasix - start losartan 25 mg daily - continue home ASA and rosuvastatin Assessment & Plan (02/23/2023 11:27 AM CDT): -OHTx 2017 -Home immunosuppression is cellcept 500 BID, tacro 1 BID. -initially MMF was held, started pred 5mg daily--02/23 resume MMF and d/c pred -continue tac, tac level -asa/rosuva for CAV ppx Assessment & Plan (07/13/2021 9:02 AM CDT): S/P OHT, follows Dr. Driver, recent TTE with EF 57%, recent cardiac cath that with no lesions -TTE 06/25 LVEF 25%, atypical stress cardiomyopathy, apical thrombus, mildly dilated and hypokinteic RV, biatrial enlargement, dilated IVC. -TTE 06/29 with improved EF, apical thrombus does not appear to be there any more. In line with a Takotsubo cardiomyopathy 2/2 sepsis. -continue Taclimus, ASA, statin, MMF 500 mg BID -exam remains euvolemic and stable -continue to follow tacro troughs Assessment & Plan (07/12/2021 10:20 AM CDT): S/P OHT, follows Dr. Driver, recent TTE with EF 57%, recent cardiac cath that with no lesions -TTE 06/25 LVEF 25%, atypical stress cardiomyopathy, apical thrombus, mildly dilated and hypokinteic RV, biatrial enlargement, dilated IVC. -TTE 06/29 with improved EF, apical thrombus does not appear to be there any more. In line with a Takotsubo cardiomyopathy 2/2 sepsis. -continue Taclimus, ASA, statin, MMF 500 mg BID -exam remains euvolemic and stable -continue to follow tacro troughs Assessment & Plan (07/11/2021 10:20 AM CDT): S/P OHT, follows Dr. Driver, recent TTE with EF 57%, recent cardiac cath that with no lesions -TTE 06/25 LVEF 25%, atypical stress cardiomyopathy, apical thrombus, mildly dilated and hypokinteic RV, biatrial enlargement, dilated IVC. -TTE 06/29 with improved EF, apical thrombus does not appear to be there any more. In line with a Takotsubo cardiomyopathy 2/2 sepsis. -continue Tac, ASA, statin, MMF 500 mg BID -exam remains euvolemic and stable -continue to follow tacro troughs Assessment & Plan (07/08/2021 10:12 AM CDT): -Follows Dr. Driver, recent TTE with EF 57%, recent cardiac cath that with no lesions -TTE 06/25 LVEF 25%, atypical stress cardiomyopathy, apical thrombus, mildly dilated and hypokinteic RV, biatrial enlargement, dilated IVC. -TTE 06/29 with improved EF, apical thrombus does not appear to be there any more. In line with a Takotsubo cardiomyopathy 2/2 sepsis. -Tac 0.5mg BID, ASA, statin, MMF 500 mg BID -exam remains euvolemic and stable -continue to follow tacro troughs Patient wanting referrals for rehabilitation sent closer to her home - dialysis social worker notified -await OT evaluation Assessment & Plan (07/07/2021 11:45 AM CDT): -Follows Dr. Driver, recent TTE with EF 57%, recent cardiac cath that with no lesions -TTE 06/25 LVEF 25%, atypical stress cardiomyopathy, apical thrombus, mildly dilated and hypokinteic RV, biatrial enlargement, dilated IVC. -TTE 06/29 with improved EF, apical thrombus does not appear to be there any more. In line with a Takotsubo cardiomyopathy 2/2 sepsis. -Tac 0.5mg BID, ASA, statin, MMF 500 mg BID -exam remains euvolemic and stable -continue to follow tacro troughs -PT recommends rehab placement 2/2 deconditioning -await OT evaluation Assessment & Plan (07/06/2021 12:06 PM CDT): -Follows Dr. Driver, recent TTE with EF 57%, recent cardiac cath that with no lesions -TTE 06/25 LVEF 25%, atypical stress cardiomyopathy, apical thrombus, mildly dilated and hypokinteic RV, biatrial enlargement, dilated IVC. -TTE 06/29 with improved EF, apical thrombus does not appear to be there any more. In line with a Takotsubo cardiomyopathy 2/2 sepsis. -Tac 0.5mg BID, ASA, statin, MMF 500 mg BID -exam remains euvolemic and stable -continue to follow tacro troughs -PT/OT and may need rehab placement 2/2 deconditioning Assessment & Plan (07/05/2021 4:50 PM CDT): -Follows Dr. Driver, recent TTE with EF 57%, recent cardiac cath that with no lesions -TTE 06/25 LVEF 25%, atypical stress cardiomyopathy, apical thrombus, mildly dilated and hypokinteic RV, biatrial enlargement, dilated IVC. -TTE 06/29 with improved EF, apical thrombus does not appear to be there any more. In line with a Takotsubo cardiomyopathy 2/2 sepsis. -Tac 0.5mg BID, ASA, statin, MMF 500 mg BID -Tacro troughs, stable Encounter for eye exam due to high risk medicati on 01/14/2019 Overview (01/14/2019): Plaquenil [id number] For antiphospholipid syndrome Assessment & Plan (01/10/2023 3:11 PM CDT): Pt no longer taking Plaquenil, no evidence of toxicity on dilate exam or with OCT. Monitor. Assessment & Plan (04/05/2021 2:09 PM CDT): OCT macula normal/stable Assessment & Plan (10/05/2020 10:56 AM STAFFING COORDINATOR): Check OCT macula next visit (21-HD, Raster) Assessment & Plan (02/03/2020 3:33 PM CDT): Plaquenil [id number] For antiphospholipid syndrome Currently off medication, but may restart. Not planned for restart. Let us know if she does Assessment & Plan (01/14/2019 12:00 PM CDT): Plaquenil [id number] For antiphospholipid syndrome Currently off medication, but may restart. No evidence of plaquenil toxicity of her maculas at this time. No contraindication for continued therapy with plaquenil. Pt to call if any concerns or changes with her vision. Will plan to have patient return in 6 months with a full eye exam and color vision testing. Will plan to repeat testing in 6. Bilateral ocular hypertension 01/14/2019 Overview (10/05/2020): No FHx Thick corneas Assessment & Plan (07/31/2024 11:51 AM STAFFING COORDINATOR): IOPs low/normal today Thick Corneas Healthy NRR clinically Monitor annually Assessment & Plan (07/27/2023 8:26 AM STAFFING COORDINATOR): IOPs adequate, thick corneas Assessment & Plan (05/22/2023 4:11 PM CDT): Normal intraocular pressure (IOP) today with thick CCT both eyes (OU) Slight decrease in RNFL both eyes (OU), pt had head trauma 5 months ago FU for Conklin visual field (HVF) and intraocular pressure (IOP) check next visit CTM off meds Assessment & Plan (01/10/2023 3:10 PM CDT): Pt's IOP stable borderline/high normotensive. Continue to monitor Assessment & Plan (04/11/2022 5:05 PM CDT): IOPs adequate for optic nerve (ON)/CCT- follow Assessment & Plan (04/05/2021 11:40 AM CDT): IOPs lower today - adequate for RNFL and visual field (VF). Assessment & Plan (10/05/2020 10:54 AM STAFFING COORDINATOR): IOPs high than previous, but still adequate for visual field (VF) and OCT. RTC 6 mo intraocular pressure (IOP) check. Assessment & Plan (07/05/2020 4:39 PM CDT): IOPs adequate for the optic nerve (ON) and CCT. Angles open with gonio. Very thick CCTs. No FHx. RNFL results likely skewed due to optic nerve (ON) tilt/anatomy. Will follow with [place]klin visual field (HVF) 24-2. Assessment & Plan (02/03/2020 3:35 PM CDT): Off po steroids in Sep 2018 Note thick pachs Mild family history? Recheck intraocular pressure (IOP) in 6months) Not on regular steroids, but may get put on low dose steroids Needs intraocular pressure (IOP) check with optic nerve (ON) OCT in 4 mo with optom. Consider drops or referral back to LMT for possible SLT if treatment needed. Assessment & Plan (01/14/2019 11:54 AM CDT): Off po steroids in Sep 2018 Note thick pachs Mild family history? Recheck intraocular pressure (IOP) in 6months) Dry eye syndrome of both eyes 01/14/2019 Assessment & Plan (02/03/2020 3:33 PM CDT): Recommend increase lubricant eye drops to 4 times/day; consider preservative- free drops, especially if using drops more than that. Add hot compresses with lid scrubs to improve quality of tears. Assessment & Plan (01/14/2019 11:55 AM CDT): Recommend increase lubricant eye drops to 4 times/day; consider preservative- free drops, especially if using drops more than that. Add hot compresses with lid scrubs to improve quality of tears. Acquired hypothyroidism 09/05/2018 Assessment & Plan (07/03/2024 2:44 PM CDT): - continue home Synthroid Encounter for aftercare following heart transpla nt 04/17/2018 Anti-phospholipid antibody syndrome 04/14/2015 Overview (08/05/2018): History of APLS and PE in 2007. Positive lupus anticoagulant at that time. Anticoag with warfarin. Hematology eval 06/2017, lupus anticoagulant, cardiolipin, and beta2 glycoprotein negative. Per Heme no recommendation for penitentiary anticoagulation Assessment & Plan (02/23/2023 11:29 AM CDT): On apixaban. Anti-xa level >2 on presentation. - apixaban on hold--consider resumption - Hep gtt - Gabapentin for chronic pain, dose reduce in setting of AB to 100 AM/200PM Assessment & Plan (04/23/2018 9:19 AM CDT): Holding apixiban 5 mg bid for possible procedure. Assessment & Plan (04/17/2018 10:40 AM CDT): Patient with a history of APLS with a history of PE in 2007 with positive lupus anticoagulant at that time. Treated with anticoagulation at that time with warfarin. Seen by hematology as an outpatient in 06/2017, lupus anticoagulant, cardiolipin, and beta2 glycoprotein negative. Per heme note, could consider anticoagulation for LVAD and short term for recent DVTs at that time, but no indication for long-term anticoagulation for APLS alone. 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 Treated with anticoagulation at that time with warfarin. Seen by hematology as an outpatient in 06/2017, lupus anticoagulant, cardiolipin, and beta2 glycoprotein negative. Per heme note, could consider anticoagulation for LVAD and short term for recent DVTs at that time, but no indication for long-term anticoagulation for APLS alone. - Would not restart anticoagulation - Long-term, will need close clinical monitoring for recurrence of thromboembolism Assessment & Plan (04/11/2018 5:06 PM CDT): Patient with a history of APLS with a history of PE in 2007 with positive lupus anticoagulant at that time. Treated with anticoagulation at that time with warfarin. Seen by hematology as an outpatient in 06/2017, lupus anticoagulant, cardiolipin, and beta2 glycoprotein negative. Per heme note, could consider anticoagulation for LVAD and short term for recent DVTs at that time, but no indication for long-term anticoagulation for APLS alone. - Would hold anticoagulation - Long-term, will need close clinical monitoring for recurrence of thromboembolism Assessment & Plan (04/10/2018 10:55 AM CDT): Patient with a history of APLS with a history of PE in 2007 with positive lupus anticoagulant at that time. Treated with anticoagulation at that time with warfarin. Seen by hematology as an outpatient in 06/2017, lupus anticoagulant, cardiolipin, and beta2 glycoprotein negative. Per heme note, could consider anticoagulation for LVAD and short term for recent DVTs at that time, but no indication for long-term anticoagulation for APLS alone. - Would hold anticoagulation - Long-term, will need close clinical monitoring for recurrence of thromboembolism Assessment & Plan (04/09/2018 5:31 PM CDT): -Patient on post operative SQH only (see overview) - Long-term, will need close clinical monitoring for recurrence of thromboembolism Assessment & Plan (04/09/2018 2:29 PM CDT): Patient with a history of APLS with a history of PE in 2007 with positive lupus anticoagulant at that time. Treated with anticoagulation at that time with warfarin. Seen by hematology as an outpatient in 06/2017, lupus anticoagulant, cardiolipin, and beta2 glycoprotein negative. Per heme note, could consider anticoagulation for LVAD and short term for recent DVTs at that time, but no indication for long-term anticoagulation for APLS alone. - Would hold anticoagulation - Long-term, will need close clinical monitoring for recurrence of thromboembolism Assessment & Plan (04/08/2018 5:02 PM CDT): Patient with a history of APLS with a history of PE in 2007 with positive lupus anticoagulant at that time. Treated with anticoagulation at that time with warfarin. Seen by hematology as an outpatient in 06/2017, lupus anticoagulant, cardiolipin, and beta2 glycoprotein negative. Per heme note, could consider anticoagulation for LVAD and short term for recent DVTs at that time, but no indication for long-term anticoagulation for APLS alone. - Would hold on anticoagulation for now Malignant neoplasm of breast 08/26/2014 Obstructive sleep apnea syndrome in adult 2012 Assessment & Plan (04/13/2018 12:08 PM CDT): CPAP per primary team Assessment & Plan (04/12/2018 2:29 PM CDT): CPAP per primary team Assessment & Plan (04/10/2018 11:01 AM CDT): CPAP per primary team Assessment & Plan (04/14/2018 9:46 AM CDT): -Patient does not use CPAP anymore 2/2 weight loss -Last sleep study in April 2015 with no recs for CPAP/bipap, recommended lateral sleeping -monitor oxygen levels overnight Assessment & Plan (04/08/2018 5:09 PM CDT): CPAP per primary team Current Treatment and Therapy Plans No current plan information found. Other Current Plans iron sucrose (Venofer) Infusion* Plan Start Date:01/11/2024 Plan Provider:Hubert Dietz MD PhD Linked Problems Iron deficiency anemia phuc byers to inadequate dietary iron intakeAnemia, unspecified type Treatment Medications No medications scheduled. Past Treatment and Therapy Plans No past plan information found. Lifetime Dose Tracking * Chemical Lifetime Dose Automatic Entry Manual Entr y Fluoro Time 34.7 minutes 3 minutes 31.7 minutes Air kerma at the reference p oint (Ka,r) 1,915.94 mGy 19.74 mGy 1,896.2 mGy DLP 6,163 mGycm 6,163 mGycm 0 mGycm DAP 6,536.627 Gy-cm2 0 Gy-cm2 6,536.627 G y-cm2 Resolved Problems Problem Noted Date Diagnosed Date Resolved Date Allergic conjunctivitis of both eyes 01/24/2024 07/31/2024 Assessment & Plan (01/24/2024 9:53 AM CDT): Rec otc [place] Floppy eyelid syndrome of left eye 05/22/2023 07/31/2024 Assessment & Plan (05/22/2023 4:04 PM CDT): HO JENNIFER, resolved after weight loss Will try night time lubrication first, press and seal or night goggles if sx persist 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 10/10/2018 01/13/2019 Overview (10/10/2018): Added automatically from request for surgery [id number] Anxiety 09/05/2018 05/20/2020 Pericardial effusion 04/22/2018 018 Assessment & Plan (04/23/2018 9:14 AM CDT): Currently feels fine and not symptomatic Echo yesterday showed new large effusion Awaiting recommendations from transplant team 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 04/17/2018 06/10/2018 Overview (06/10/2018): -S/P OHTx on 04/06/18 - Assessment & Plan (04/23/2018 9:18 AM CDT): Continue heart transplant medications: mycophenolate 1000 mg bid, Bactrim SS m-w-f Prednisone 15 mg bid , cellcept 1000 mg bid , rosuvastatin 20 mg daily , tacrolimus 2mg am and 1 mg evening High risk medications (not a nticoagulants) long-term use 04/17/2018 06/10/2018 Overview (04/17/2018): Added automatically from request for surgery [id number] (right ventricular failure) 04/09/2018 04/17/2018 Overview (04/09/2018): In the setting of newly transplanted heart. Assessment & Plan (04/16/2018 9:46 AM CDT): - Epi off 04/10 0200 - Milrinone off 04/11 -Lasix 40mg po daily, RA 10 on Cardiac cath Assessment & Plan (04/09/2018 10:08 AM CDT): - Hypertensive overnight can increase epinephrine wean 0.01 q4 for ScVO2 >60 - Continue milrinone for support Hyperglycemia, drug-induced 04/09/2018 06/10/2018 Overview (04/09/2018): Due to steroid regimen Assessment & Plan (04/16/2018 9:55 AM CDT): -MDSSI -animal humane agent supervisor consult Assessment & Plan (04/09/2018 10:09 AM CDT): Sliding scale insulin, need will decrease as steroid dose is tapered. Acute respiratory failure 04/06/2018 Assessment & Plan (04/07/2018 2:01 AM CDT): -continue ventilator settings while on inhaled flolan, weaning flolan by syringe -avoid hypercarbia and hypoxia to avoid RV dysfunction -Continue to follow ABG Q6h for first 24 hours -sedation with fentanyl and propofol until extubation -If Off of flolan, will attempt PSV later today for possible extubation Assessment & Plan (04/06/2018 6:29 PM CDT): -continue ventilator settings while on inhaled flolan -avoid hypercarbia and hypoxia to avoid RV dysfunction -Follow up ABG Q6 for first 24 hours -sedation with fentanyl and propofol until extubation Cardiogenic shock 04/06/2018 04/09/2018 Assessment & Plan (04/08/2018 3:07 PM CDT): Assessment & Plan (04/07/2018 2:01 AM CDT): -s/p heart transplant on inotropic support for expected RV dysfunction -will continue to wean flolan by syringe for CI > 3 -continue atrial pacing, AAI 110 -continue epinephrine and milrinone for RV support -avoid volume overload -avoid hypoxia and hypercarbia Assessment & Plan (04/06/2018 6:28 PM CDT): -s/p heart transplant on inotropic support for expected RV dysfunction -will continue to wean flolan by syringe for CI > 3 -continue atrial pacing, AAI 110 -continue epinephrine and milrinone for RV support -avoid volume overload -avoid hypoxia and hypercarbia -f/u position of PA [PA catheter repositioned on arrival] Heart transplanted 04/05/2018 5 Overview (08/05/2018): S/p OHTx 04/06/18 following a period of HM3 LVAD support (NIC) CMV status - donor and recipient postive RIJ thrombus post transplant briefly on Eliquis Pericaridal effusion post transplant Assessment & Plan (04/23/2018 9:11 AM CDT): Transplanted in 04/06/18 endomyocardial biopsy yesterday with echo and has large pericardial effusion Admitted overnight for observation patient feels fine no shortness of breath with walking Will discuss with team plans for pericardial effusion Assessment & Plan (04/17/2018 10:39 AM CDT): S/p OHTx 04/06. Tacroliums level subtherapeutic after decrease to 1mg BID, now up to 2/1mg daily. - Continue prednisone 15mg BID - Continue [id number] BID. - Completed 7 day course of vancomycin and cefepime after LVAD explant - Aspirin 81mg QD. Rosuvastatin 10mg QD - Continue bactrim, clotrimazole, and valganciclovir prophylaxis. - TTE with normal RV/LV function -Biopsy#1 18: 1R/2 --has bilateral IJ DVT, incl acute RIJ DVT; will need groin biopsies as outpatient --consideration for anticoagulation once stable from surgical perspective Assessment & Plan (04/12/2018 2:29 PM CDT): S/p OHTx 04/06. Tacroliums level 6.0 yesterday, today's level is pending. - Continue prednisone 20mg BID - Continue tacrolimus 2mg BID and monitor daily trough levels - Continue [id number] BID. - Finish cefepime and vancomycin today - Aspirin 81mg QD when safe from surgical standpoint. Recommend starting rosuvastatin 10mg QD - Continue bactrim, clotrimazole, and valganciclovir prophylaxis. - Will follow up TTE today - Will plan for biospy next week on Sunday 04/15. Assessment & Plan (04/11/2018 5:05 PM CDT): S/p OHTx 04/06. Tacroliums level 6.0. -Continue prednisone 25mg BID - Continue tacrolimus 2mg BID and monitor daily trough levels - Continue Cellcept to 1000mg BID. - Continue vancomycin and cefepime for a total of 7 days (04/07-04/13) - Aspirin 81mg QD when safe from surgical standpoint. Recommend starting rosuvastatin 10mg QD - Start bactrim single strengthprophylactic dose three times per week. Start CMV prophophylaxis with valganciclovir 900mg QD at POD5 (04/11) - Continue milrinone for now and wean per primary CT surgery team -Recommend TTE on Thursday 04/12. Will plan for biospy next week on Sunday 04/15. Assessment & Plan (04/10/2018 11:02 AM CDT): S/p OHTx 04/06. Tacroliums level 5.7 yesterday, level today pending. -Continue prednisone 25mg BID - Continue tacrolimus 2mg BID and monitor daily trough levels - Continue Cellcept to 1000mg BID. - Continue vancomycin and cefepime for a total of 7 days (04/07-04/13) - Aspirin 81mg QD when safe from surgical standpoint. Recommend starting rosuvastatin 10mg QD - Start bactrim single strengthprophylactic dose three times per week. Start CMV prophophylaxis with valganciclovir 900mg QD at POD5 (04/11) - Continue milrinone for now and wean per primary CT surgery team -Recommend TTE on Thursday 04/12. Will plan for biospy next week on Sunday 04/15. Assessment & Plan (04/09/2018 2:30 PM CDT): S/p OHTx 04/06. -Continue prednisone 25mg BID - Continue tacrolimus 2mg BID and monitor daily levels - Continue Cellcept to 1000mg BID - Continue vancomycin and cefepime for a total of 7 days - Aspirin 81mg QD when safe from surgical standpoint - Start bactrim prophylaxis single stregth dose MWF. Start CMV prophophylaxis at POD5 (see pharmacy note) - Continue epinephrine and milrinone for now and wean per CTICU and CT surgery teams Assessment & Plan (04/09/2018 10:07 AM CDT): - Immunosuppression per transplant - Continue vanc/cefepime for 1 week after transplant until 04/14 -- Vanc trough due later today - Target HR for 90-110 and if below, please pace to keep rate. -- Epicardial pacing VVI @ 80 for backup. Do not allow to stay paced in VVI. Assessment & Plan (04/08/2018 3:09 PM CDT): - Immunosuppression per transplant - Continue vanc/cefepime for 1 week after transplant - Epicardial pacing VVI @ 80 for backup. Do not allow to stay paced in VVI. - Target HR for 90-110 and if below, please pace to keep rate. - Cardiogenic shock continues, wean epinephrine 0.01 q 8 for ScVO2 >60 and continue milrinone for support - Now extubated, advance diet as tolerated and PT/OT for rehabilitation Assessment & Plan (04/07/2018 1:59 AM CDT): -immunosuppression per transplant -on periop vanc and ancef, continue for 1 week Assessment & Plan (04/06/2018 6:30 PM CDT): -immunosuppression per transplant -on periop vanc and ancef, continue for 1 week Assessment & Plan (04/08/2018 5:08 PM CDT): S/p OHTx 04/06. - Would continue methylprednisolone at 125mg q8h for tofay and change to prednisone 25mg BID tomorrow - Continue tacrolimus and monitor daily levels - Increase Cellcept to 1000mg BIS - Continue vancomycin and cefepime for a total of 7 days - Aspirin 81mg QD when safe from surgical standpoint - Start bactrim prophylaxis single stregth dose MWF. Start CMV prophophylaxis at POD5 (see pharmacy note) - Continue epinephrine and milrinone for now and wean per CTICU and CT surgery teams Assessment & Plan (04/17/2018 8:10 AM CDT): -Immunosuppression and prophylaxis per HF/transplant team -Vanc/cefepime for 1 week after transplant completed 04/14 (Explant of lvad coverage) -Patient had (+)GPC =staph on 04/06, repeat cultures 04/10(on abx) negative -no need for repeat per HF team -ECHO 04/13 with LVEF 56% -1st biopsy 04/15-1R, next biopsy 04/22 - Plan for discharge home late this week then return for 2nd biopsy outpatient. Presence of left ventricular assist device (LVAD) 02/25/2018 04/09/2018 Assessment & Plan (04/08/2018 5:09 PM CDT): Iimplanted 03/2017, now explanted post transplant. Assessment & Plan (04/06/2018 2:20 AM CDT): Hold coumadin Give IV Vitamin K and monitor INR levels Plan for explant of device during heart transplant Chronic systolic heart failure 02/25/2018 06/10/2018 Atherosclerosis of [place] artery of extremity 09/11/19 18 05/20/2020 Atrial fibrillation 03/22/2017 06/10/20 18 Cardiomyopathy 01/24/2011 06/10/2018
--- OUTSIDE RECORDS SUMMARY | 2025-06-27 11:29 | XMS_ITS | Encounter Summary ---
Author Organization [facility] Healthcare Address [address] [place] [address] Care Team Providers Care Head Neck Surgeon Name Role Phone Jose Matute MD Primary Care Provider [phone] Radha Carolina RN Unavailable [phone] Sonia Zavala Unavailable Unavailable Jose Matute MD Unavailable [phone] Carlos Hidalgo MD Unavailable [phone] Johnny Hewitt MD Unavailable [phone] Pk Gutiérrez MD PhD Unavailable + Siva Jacobs MD PhD Unavailable [phone] Angeles Ray Unavailable Unavailable Encounter Details Date Type Department Care Team (Late st Contact Info) Description 05/26/2025 Telephone [facility] Transplant Heart [address] [id number] Mailstop [phone] [place] [address] Sergio Teixeira Social History Tobacco Use Types Packs/Day Years [...] often do you attend chur ch or taoist services? Never 02/20/2023 Do you belong to any clubs o r organizations such as spiritism groups, unions, fraternal or athletic groups, or [...] place to sleep or slept in a prison (including now)? No 02/20/2023 Personal Safety Answer Date Recorded Have you ever been in or are you currently in a harmful physical or emotional relationship or is someone making you feel afraid or unsafe? 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 Gender Identity Not on file Sexual Orientation Not on file documented as of this encounter Miscellaneous Notes * Telephone Encounter - Sergio Teixeira - 05/26/2025 1:45 PM CDT Caller: Patient Medications: Vitamin D Current Dosage: 50,000 IU Preferred Pharmacy: [facility]/pharmacy #[id number] [place], [place] - [address] [place] [address] Pharmacy phone number/identifier: [phone] Pharmacy fax number: [phone] Day refill: No Is the patient out of medications: Yes PA required: No documented in this encounter Plan of Treatment Scheduled Procedures Name Priority Associated Diagnoses Date/Ti wv COLONOSCOPY Iron deficiency anemia, unspecified iron deficiency anemia type ESOPHAGOGASTRODUODENOSCOPY Iron deficiency anemia, unspecified iron deficiency anemia type documented as of this encounter Goals Goal Patient Goal Type Associated Problems Recent Progress Patient-Stated? Author CCM Chronic Pain Care Plan Chronic Care Management Improving( 1:28 PM CDT) No Everardo Laughlin RN Note: Problem: Chronic Pain Goals: 1. [...] Resolved Time MDR gram neg/ESBL 05/22/2022 02/18/2023 documented as of this encounter Care Teams Head Neck Surgeon Relationship Specialty Start Date End Date Jose Matute MD [address] [place] [address] PCP - General 04/02/17 Radha Carolina, RN [address] [facility] [address] [place] [address] Registered Nurse Transplant 04/17/18 Sonia Zavala Primary Junior Technical Writer Transplant 04/17/18 Jose Matute MD [address] [place] [address] Referring Physician Family Medicine 04/30/18 Carlos Hidalgo MD Fellow Internal Medicine 01/14/19 Johnny Hewitt MD Cotton Tier Obstetrics and Gynecology 06/02/21 Pk Gutiérrez MD PhD Referring Physician Cardiology 02/23/23 Siva Jacobs MD PhD [address] [facility] [address] [place] [address] Referring Physician Cardiology 07/04/24 Angeles Ray Primary Junior Technical Writer 05/28/25 documented as of this encounter
--- OUTSIDE RECORDS SUMMARY | 2025-06-27 11:29 | XMS_ITS | Encounter Summary ---
Author Organization [facility] Address [address] [place] [address] Phone Care Team Providers Care Railroad Detective Name Role Phone Jose Matute MD Primary Care Provider [phone] Radha Carolina RN Unavailable [phone] Sonia Zavala Unavailable Unavailable Jose Matute MD Unavailable [phone] Carlos Hidalgo MD Unavailable [phone] Johnny Hewitt MD Unavailable [phone] Pk Gutiérrez MD PhD Unavailable + Siva Jacobs MD PhD Unavailable [phone] Angeles Ray Unavailable Unavailable Encounter Details Date Type Department Care Team (Late st Contact Info) Description 06/02/2025 Telephone [facility] Medicine Cardiology [address] [facility] [address] [place] [address] [place] [address] Sylwia De Jesus Social History Tobacco Use Types Packs/Day Years [...] often do you attend chur ch or latter-day services? Never 02/20/2023 Do you belong to any clubs o r organizations such as jehovah's witness groups, unions, fraternal or athletic groups, or [...] place to sleep or slept in a penitentiary (including now)? No 02/20/2023 Personal Safety Answer Date Recorded Have you ever been in or are you currently in a harmful physical or emotional relationship or is someone making you feel afraid or unsafe? Denies 01/01/2025 Comments No Sex and Gender Information Value Date Recorded Sex Assigned at Not on file Legal Sex Female 2:01 AM PHARMACEUTICAL ANALYST Gender Identity Not on file Sexual Orientation Not on file documented as of this encounter Miscellaneous Notes * Telephone Encounter - Sylwia De Jesus - 06/02/2025 2:55 PM CDT Post [place] Pt calling stating she would like to know if she will have to wait until 2:30 PM for stress on day of appt because her consult is at 7:40 AM. Would also like to know if she will have an opportunity to get yearly vaccinations with her appointment. Please call to advise. documented in this encounter Plan of Treatment [...] documented as of this encounter Care Teams Railroad Detective Relationship Specialty Start Date End Date Jose Matute MD [address] [place] [address] PCP - General 04/02/17 Radha Carolina, MEG [address] [facility] [address] [place] [address] Registered Nurse Transplant 04/17/18 Sonia Zavala Primary Fbi Profiler Transplant 04/17/18 Jose Matute MD [address] [place] [address] Referring Physician Family Medicine 04/30/18 Carlos Hidalgo MD Fellow Internal Medicine 01/14/19 Johnny Hewitt MD Collar Setter Obstetrics and Gynecology 06/02/21 Pk Gutiérrez MD PhD Referring Physician Cardiology 02/23/23 Siva Jacobs MD PhD [address] [facility] [address] [place] [address] Referring Physician Cardiology 07/04/24 Angeles Ray Primary Fbi Profiler 05/28/25 documented as of this encounter
--- OUTSIDE RECORDS SUMMARY | 2025-06-27 11:29 | XMS_ITS | Clinical Summary ---
Author Organization [facility] Address [address] [place] [address] Care Team Providers Care Insurance Claim Representative Name Role Phone Jose Matute MD Primary Care Provider [phone] Radha Carolina RN Unavailable [phone] Sonia Zavala Unavailable Unavailable Jose Matute MD Unavailable [phone] Carlos Hidalgo MD Unavailable [phone] Johnny Hewitt MD Unavailable [phone] Pk Gutiérrez MD PhD Unavailable + Siva Jacobs MD PhD Unavailable [phone] Angeles Ray Unavailable Unavailable Allergies Active Allergy Reactions Criticality Noted Date Comments Amoxicillin Hives Medium Warfarin Hives Medium 04/15/2018 From the coating on the pill Other Hives Medium 10/11/2023 Coating On Coumadin Tab Penicillins Hives Medium Medications albuterol HFA (PROVENTIL HFA,VENTOLIN HFA,PROAIR HFA) 90 mcg/actuation inhalerIndicat ions:Acute Asthma Attack Inhale 2 puffs as needed for wheezing (allergies) Active DULoxetine DR (CYMBALTA) 60 mg capsuleIndicat ions:Anxiety with Depression Take 1 capsule (60 mg total) by mouth 2 (two) times a day 10/25/19 Active loratadine (CLARITIN) 10 mg tabletIndicati ons:Allergic Rhinitis Take 1 tablet (10 mg total) by mouth early childhood specialist before breakfast 08/31/20 21 Active buPROPion XL (WELLBUTRIN XL) 300 mg 24 hr tablet Take 1 tablet (300 mg total) by mouth daily 30 tablet 11 10/06/19 22 Active Additional Information Patient taking differently:300 mg oralEvery morning, Indications: Anxiety with Depression, Informant: Self, Reported on 01/01/2025 lidocaine (LIDODERM) 5 %Indications:p ain Apply 1 patch topically as needed for pain 03/02/20 22 Active methocarbamoL (ROBAXIN) 500 mg tabletIndicati ons:Muscle Spasm Take 1 tablet (500 mg total) by mouth as needed for muscle spasms 01/07/20 22 Active calcium carbonate (TUMS) 500 mg (200 mg elemental) chewable tabletIndicati ons:Heartburn Take 1 tablet/chew tab (500 mg total) by mouth as needed for indigestion or heartburn Active gabapentin (NEURONTIN) 300 mg capsuleIndicat ions:Restless Legs Syndrome Take 1 capsule (300 mg total) by mouth 2 (two) times a day 300mg in the morning and 600mg in the evening. Active montelukast (SINGULAIR) 10 mg tablet Take 1 tablet (10 mg total) by mouth nightly 90 tablet 3 07/26/20 23 Active Additional Information Patient taking differently:10 mg oral Nightly,Indications: Seasonal Allergic Rhinitis, Informant: Self, Reported on 01/01/2025 levothyroxine (SYNTHROID) 100 mcg tabletIndicati ons:hypothyroi dism Take 1 tablet (100 mcg total) by mouth early childhood specialist before breakfast 07/23/20 23 Active mycophenolate mofetil (CELLCEPT) 500 mg tablet TAKE 1 TABLET(500 MG) BY MOUTH TWICE DAILY 60 tablet 11 10/22/19 Active Additional Information Patient taking differently: 500 mg oral 2 times daily, Indications: Prevention of Cardiac Transplant Rejection, Informant: Self, Reported on 01/01/2025 oxyCODONE-acet aminophen (PERCOCET) 10-325 mg per tabletIndicati ons:Pain Take 1 tablet by mouth as needed for pain Active multivit with min-folic acid (Multivitamin Gummies) 200 mcg tablet,chewabl eIndications:M ineral Deficiency Prevention,Vit ross Deficiency Prevention Take 1 tablet/chew tab by mouth every evening Pt out of medication as of 12/19/24. Active iron, carbonyl 18 mg iron tablet,chewabl eIndications:[place] Deficiency Anemia Take 1 tablet/chew tab by mouth every evening Pt is out of medication as of 12/19/24. Active rosuvastatin (CRESTOR) 20 mg tablet Take 1 tablet (20 mg total) by mouth nightly 90 tablet 3 11/07/19 25 Active Additional Information Patient taking differently:20 mg oral Nightly,Indications: hyperlipidemia, Informant: Self, Reported on 01/01/2025 tacrolimus 1 mg immediate-rele ase capsule Take 1 capsule (1 mg total) by mouth every 12 (twelve) hours 180 capsule 3 11/15/19 Active Additional Information Patient taking differently:1 mg oral2 times daily, Indications: Prevention of Cardiac Transplant Rejection, Informant: Self, Reported on 01/01/2025 ondansetron (ZOFRAN) 8 mg tabletIndicati ons:Prevention of Post-Operative Nausea and Vomiting Take 1 tablet (8 mg total) by mouth 2 (two) times a day as needed for nausea or vomiting 10 tablet 01/03/20 25 Active aspirin 81 mg enteric coated tablet TAKE 1 TABLET BY MOUTH EVERY DAY 90 tablet 2 01/05/20 25 Active losartan (COZAAR) 25 mg tablet TAKE 1 TABLET (25 MG TOTAL) BY MOUTH DAILY. 90 tablet 3 05/05/20 25 026 Active cholecalcifero l (VITAMIN D-3) 50,000 unit capsule Take 1 capsule (50,000 Units total) by mouth once a week 4 capsule 11 05/29/20 25 026 Active metoprolol XL (TOPROL-XL) 25 mg extended release tablet TAKE 1 TABLET (25 MG TOTAL) BY MOUTH DAILY. 90 tablet 3 06/08/20 25 026 Active furosemide (LASIX) 40 mg tablet Take 1 tablet (40 mg total) by mouth daily as needed (For fluid retention, take only occasionally) 30 tablet 2 06/22/[address] (PROTONIX) 40 mg EC tablet TAKE 1 TABLET BY MOUTH TWICE A DAY 180 tablet 3 06/22/20 Active cholecalcifero l (VITAMIN D-3) 50,000 unit capsule Take 1 capsule (50,000 Units total) by mouth once a week 4 capsule 11 05/23/20 24 025 Discontinued(R eorder) furosemide (Lasix) 40 mg tablet Take 1 tablet (40 mg total) by mouth daily 90 tablet 3 05/29/20 025 Discontinued(R eorder) metoprolol XL (Toprol XL) 25 mg extended release tablet Take 1 tablet (25 mg total) by mouth daily 90 tablet 3 05/29/[address] (PROTONIX) 40 mg EC tabletIndicati ons:Stress Ulcer Prophylaxis Take 1 tablet (40 mg total) by mouth 2 (two) times a day 180 tablet 3 09/01/20 025 Discontinued amLODIPine (NORVASC) 2.5 mg tablet TAKE 1 TABLET BY MOUTH EVERY DAY 90 tablet 3 05/12/20 25 025 Discontinued(A lternate therapy) spironolactone (ALDACTONE) 25 mg tablet TAKE 1 TABLET (25 MG TOTAL) BY MOUTH DAILY. 90 tablet 3 05/19/20 025 Discontinued(A lternate therapy) furosemide (Lasix) 40 mg tablet Take only as needed, sparingly 06/04/20 025 Discontinued Hospital, Clinic, or Other Facility Administered Medication Ordered Dose Route Frequency Start Date End Date Status perflutren protein-a (OPTISON) 3 mL in sodium chloride 0.9% 8 mL syringe 1 - 8 mL IV Once in imaging 10/16/2024 Active perflutren protein-a (OPTISON) 3 mL in sodium chloride 0.9% 8 mL syringe 1 - 8 mL IV Once in imaging 06/04/2025 06/04/2025 Ended Active Problems Problem Noted Date Diagnosed Date Renal mass 01/01/2025 Right renal mass 01/01/2025 Assessment & Plan (01/02/2025 3:11 PM CDT): S/p successful right renal mass cryoablation and biopsy with IR. Procedure was complicated by small retroperitoneal hematoma without active arterial extravasation. There was no concern for active bleeding. She is hemodynamically stable and was transferred to [facility] for further observation. There were no acute [...] is hemodynamically stable and was transferred to [facility] for further observation. - Bedrest and NPO [...] 01/10/2023 Assessment & Plan (07/31/2024 10:27 AM MACHINE STITCHER): Pt is asymptomatic. Defer cataract extraction (CE) until signs/sx indicate. Recommend UV eye protection. Assessment & Plan (07/27/2023 8:29 AM MACHINE STITCHER): Fairly significant Rx shift - pt ed, release updated glasses Rx Assessment & Plan (05/22/2023 4:06 PM CDT): NVS, monitor Assessment & Plan (01/31/2023 12:59 PM CDT): Mild changes stable, not visually significant. Monitor. Assessment & Plan (01/10/2023 3:16 PM CDT): Mild changes noted and discussed, improvement in BCVA with new manifest. Will monitor and may consider new Rx at next visit. 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 -Concerned this admission for PE given APLS history, troponin elevated, D-Dimer >80k, history of DVT/PE, but CT OHS 10/ without PE -HIT negative, MAGDALENA negative, Cardiolipin [...] transplant was repeatedly negative for lupus AC, [id number] and anti-cardiolipin, so she was subsequently taken [...] transplant was repeatedly negative for lupus AC, zwsr-d3-[id number] and anti-cardiolipin, so she was subsequently taken [...] transplant was repeatedly negative for lupus AC, lahs-i2-lrhmenflvyal and anti-cardiolipin, so she was subsequently taken [...] transplant was repeatedly negative for lupus AC, spyp-o0-[id number] and anti-cardiolipin, so she was subsequently taken [...] transplant was repeatedly negative for lupus AC, [id number]-b1-xvvqhyquqxwt and anti-cardiolipin, so she was subsequently taken [...] transplant was repeatedly negative for lupus AC, pcuw-e3-byivocrkngzx and anti-cardiolipin, so she was subsequently taken [...] (07/05/2021): Added automatically from request for surgery [id number] Pyelonephritis due to Escherichia coli Assessment & Plan (07/13/2021 9:07 AM CDT): -E. Coli pyelonephritis & nephrolithiasis -CT (06/24): obstructing L ureteral stone with mild upstream hydroureter and hydronephrosis -urine cx (06/24) = E. Coli -cystoscopy (06/25) = L ureteral stent placed. 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 Defer cataract extraction (CE) until signs/sx indicate. Recommend UV eye protection. Assessment & Plan (01/24/2024 9:55 AM CDT): Cont with current Rx Assessment & Plan (07/26/2023 12:15 PM MACHINE STITCHER): Lasik consult Assessment & Plan (04/11/2022 5:05 PM CDT): Release updated glasses Rx Assessment & Plan (04/05/2021 1:58 PM CDT): Release updated glasses Rx Conjunctival lesion, benign 10/05/2020 Assessment & Plan (10/05/2020 10:54 AM MACHINE STITCHER): Prolapsed orbital fat right eye (OD) - not bothersome to patient, and longstanding. H/o hypothyroidism- eoms full, no corneal staining. Pt not interested in surgical removal at this time. Healthcare maintenance 03/19/2020 Overview (03/19/2020): Added automatically from request for surgery [id number] Contracture of muscle of left hand 06/18/2019 Overview (06/18/2019): Added automatically from request for surgery [id number] Seasonal allergic rhinitis 06/02/2019 Renal cyst 05/06/2019 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 02/19/2019 Overview (02/19/2019): Added automatically from request for surgery [id number] Assessment & Plan (07/03/2024 3:00 PM CDT): [...] rehabilitation sent closer to her home - vp digital marketing social media and crm notified -await OT evaluation Assessment & Plan [...] risk medicati on 01/14/2019 Overview (01/14/2019): Plaquenil [id number] For antiphospholipid syndrome Assessment & Plan (01/10/2023 3:11 PM CDT): Pt no longer taking Plaquenil, no evidence of toxicity on dilate exam or with OCT. Monitor. Assessment & Plan (04/05/2021 2:09 PM CDT): OCT macula normal/stable Assessment & Plan (10/05/2020 10:56 AM MACHINE STITCHER): Check OCT macula next visit (21-HD, Raster) Assessment & Plan (02/03/2020 3:33 PM CDT): Plaquenil [id number] For antiphospholipid syndrome Currently off medication, but may restart. Not planned for restart. Let us know if she does Assessment & Plan (01/14/2019 12:00 PM CDT): Plaquenil [id number] For antiphospholipid syndrome Currently off medication, but [...] corneas Assessment & Plan (07/31/2024 11:51 AM MACHINE STITCHER): IOPs low/normal today Thick Corneas Healthy NRR clinically Monitor annually Assessment & Plan (07/27/2023 8:26 AM MACHINE STITCHER): IOPs adequate, thick corneas Assessment & Plan [...] (VF). Assessment & Plan (10/05/2020 10:54 AM MACHINE STITCHER): IOPs high than previous, but still adequate [...] glycoprotein negative. Per Heme no recommendation for termite control representative anticoagulation Assessment & Plan (02/23/2023 11:29 AM CDT): On apixaban. Anti-xa level >2 on presentation. - apixaban on hold--consider resumption - Hep gtt - Gabapentin for chronic pain, dose reduce in setting of BA to 100 AM/200PM Assessment & Plan (04/23/2018 [...] 5:09 PM CDT): CPAP per primary team Resolved Problems Problem Noted Date Diagnosed Date [...] (10/10/2018): Added automatically from request for surgery [id number] Anxiety 09/05/2018 05/20/2020 Pericardial effusion 04/22/2018 018 Assessment & Plan (04/23/2018 9:14 AM CDT): Currently feels fine and not symptomatic Echo yesterday showed new large effusion Awaiting recommendations from transplant team 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 04/17/2018 06/10/2018 Overview (06/10/2018): -S/P OHTx on 04/06/18 - Assessment & Plan (04/23/2018 9:18 AM CDT): Continue heart transplant medications: mycophenolate 1000 mg bid, Bactrim SS m-w- Prednisone 15 mg bid , cellcept 1000 mg bid , rosuvastatin 20 mg daily , tacrolimus 2mg am and 1 mg evening High risk medications (not a nticoagulants) long-term use 04/17/2018 06/10/2018 Overview (04/17/2018): Added automatically from request for surgery [id number] RVF (right ventricular failure) 04/09/2018 04/17/2018 Overview [...] & Plan (04/16/2018 9:55 AM CDT): -MDSSI -wellness educator consult Assessment & Plan (04/09/2018 10:09 AM [...] following a period of HM3 LVAD support ([facility]) CMV status - donor and recipient postive [...] - Continue prednisone 15mg BID - Continue [id number] BID. - Completed 7 day course of vancomycin and cefepime after LVAD explant - Aspirin 81mg QD. Rosuvastatin 10mg QD - Continue bactrim, clotrimazole, and valganciclovir prophylaxis. - TTE with normal RV/LV function -Biopsy#1 04/15/18: 1R/2 --has bilateral IJ DVT, incl acute RIJ DVT; will need groin biopsies as outpatient --consideration for anticoagulation once stable from surgical perspective Assessment & Plan (04/12/2018 2:29 PM CDT): S/p OHTx 04/06. Tacroliums level 6.0 yesterday, today's level is pending. - Continue prednisone 20mg BID - Continue tacrolimus 2mg BID and monitor daily trough levels - Continue [id number] BID. - Finish cefepime and vancomycin today [...] prophophylaxis with valganciclovir 900mg QD at POD5 (8) - Continue milrinone for now and wean [...] systolic heart failure 02/25/2018 06/10/2018 Atherosclerosis of [place] artery of extremity 09/11/19 18 05/20/2020 Atrial fibrillation 03/22/2017 06/10/20 18 Cardiomyopathy 01/24/2011 06/10/2018 Encounters Date Type Department Care Team Description 06/17/2025 Telephone [facility] Radiology [address] [place] [address] Yara Schneider, RN 06/10/2025 Telephone [facility] Radiology [address] [place] [address] Yara Schneider, RN 06/04/2025 2:30 PM CDT Ancillary Procedure [address] [place] [address] 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 06/04/2025 1:45 PM CDT - 06/04/2025 11:59 PM CDT Hospital Encounter [facility] [address] [facility] [address] [place] [address] 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 Discharge Disposition: Discharge to home or self care 06/04/2025 12:00 PM CDT Office Visit [facility] [address] [facility] [address] [address] [place] [address] 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 (Primary Dx); Encounter for aftercare following heart transplant (HCC) 06/04/2025 Telephone [facility] Transplant Heart [address] [facility] [address][phone] [place] [address] Radha Carolina, MEG 7 year annual heart transplant visit 06/03/2025 Telephone [facility] Transplant Heart [address] [facility] [address] -[phone] [place] [address] Radha Carolina, MEG ANNUAL LABS 06/02/2025 Telephone [facility] [address] [facility] 8[address] [place] [address] [place] [address] Sylwia De Jesus 05/29/2025 Telephone [facility] Transplant Heart [address] [facility] [address] Mail[address] -[phone] [place] [address] Radha Carolina, RN Med Refill; reminder to get annual labs 05/29/2025 Orders Only [facility] Transplant Heart [address] [place] [address] [address] -[phone] [place] [address] Sergio Teixeira 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 (Primary Dx); Encounter for long-term (current) use of high-risk medication 05/26/2025 Telephone [facility] Transplant Heart [address] [facility] [address] Mail[address] [phone] [place] [address] Sergio Teixeira 05/18/2025 Telephone [facility] Radiology [address] [place] [address] Yara Schneider, RN 05/13/2025 Telephone [facility]iology [address] [place] [address] Yara Schneider, RN 05/12/2025 Orders Only [facility]iology [address] [place] [address] Yara Schneider, chemical maker mass (Primary Dx); Status post cryoablation of mass of kidney 03/27/2025 Telephone [facility]iology [address] [place] [address] Yara Schneider, RN from Last 3 Months Immunizations Immunization Administration Dates Next Due Influenza, Quadrivalent, Elena l Culture-based MDCK, Preservative Free, Antibiotic Free, Intramuscular 07/08/2018 Influenza, Quadrivalent, Spl it, Intramuscular 07/07/2019,06/18/2017,06/07/2016,07/09 Influenza, Unspecified 06/10/2020 Surgical History Surgery Date Site/Laterality Comments ABSCESS DRAINAGE Incision And Drainage Of Skin Abscess - (Added by TW Conv) LEFT VENTRICULAR ASSIST DEVICE LEG REPLANTATION GASTRIC BYPASS CARDIAC DEFIBRILLATOR PLACEMENT ORTHOTOPIC HEART TRANSPLANT CARDIAC CATHETERIZATION MENISCUS SURGERY 09/10/1986 - 09/09/1987 HEART TRANSPLANT KIDNEY STONE SURGERY 07/11/2021 - 08/09/2021 FOOT SURGERY 1969 - 09/09/1970 Right CRYOABLATION RENAL RIGHT 01/01/2025 Right Medical History Medical History Date Comments CHF (congestive heart failure) (HCC) Coronary artery disease Depression Arthritis History of transfusion Thyroid disease Thrombus Hyperlipidemia Cancer (HCC) Sleep apnea Hypertension Antiphospholipid antibody syndrome Hypothyroidism Family History Medical History Relation Name Comments Heart failure Brother 1 Family history of congestive heart failure - (Added by TW Conv) Cardiomyopathy Brother 2 Family histor y of cardiomyopathy - (Added by TW Conv) Anesthesia problems Mother post-op delirium Emphysema Other Family history of emphysema - Relation: Uncle (Added by TW Conv) Relation Name Status Comments Brother 1 Brother 2 Mother Other Social History Tobacco Use Types Packs/Day Years Used Date Smoking Tobacco: Former Cigarettes 1 20 0 09/10/1987 - 2007 Passive Smoke Exposure: Past Smokeless Tobacco: Never Tobacco Cessation:Counseling Given: Not Answered Alcohol Use Standard Drinks/Week Comments Yes 0 [...] often do you attend chur ch or baptist services? Never 02/20/2023 Do you belong to any clubs o r organizations such as religious groups, unions, fraternal or athletic groups, or [...] place to sleep or slept in a residential (including now)? No 02/20/2023 Personal Safety Answer Date Recorded Have you ever been in or are you currently in a harmful physical or emotional relationship or is someone making you feel afraid or unsafe? Denies 01/01/2025 Comments No Sex and Gender Information Value Date Recorded Sex Assigned at Not on file Legal Sex Female 2:01 AM MACHINE STITCHER Gender Identity Not on file Sexual Orientation Not on file Obstetrics History Last Filed Vital Signs Vital Sign Reading Time Taken Comments Blood Pressure 91/58 06/04/2025 12:22 PM CDT Pulse 90 06/04/2025 12:22 PM CDT Temperature 36.5 C (97.7 F) 06/04/2025 12:22 PM CDT Respiratory Rate 16 01/02/2025 5:10 AM CDT Oxygen Saturation 94% 06/04/2025 12:22 PM CDT Inhaled Oxygen Concentration - - Weight 58.3 kg (128 lb 8 oz) 06/04/2025 12:22 PM CDT Height 162.6 cm (5' 4) 06/04/2025 12:22 PM CDT Body Mass Index 22.06 06/04/2025 12:22 PM CDT Plan of Treatment Scheduled Procedures Name Priority Associated Diagnoses Date/Ti me COLONOSCOPY Iron deficiency anemia, unspecified iron deficiency anemia type ESOPHAGOGASTRODUODENOSCOPY Iron deficiency anemia, unspecified iron deficiency anemia type Health Maintenance Due Date Last Done Comments Breast Cancer Screening-Mammogram 1969 Cervical Cancer Screening 1969 Colon Cancer Screening-Colonoscopy 1969 Regular Well Visit/Exam 18-64 1987 Pneumococcal vaccine <65 (1 of 2 - PCV) 02/22/1988 Zoster Vaccine (1 of 2) 02/22/1988 DTaP/Tdap/Td Vaccine (1 - Tdap) 06/13/2005 5 Depression Screening 02/19/2024 02/18/2023 Covid-19 Vaccine (6 - 2024-2 6 season) 2025 06/08/2023, 10/11/2021, 04/27/2021, Additional history exists Influenza Vaccine (#1) 2025 3, 11/15/2021, 09/10/2021, Additional history exists Hepatitis B Screening Completed 02/28/2017 Hepatitis C Screening Completed 02/28/2017, 017 Goals Goal Patient Goal Type Associated Problems Recent Progress Patient-Stated? Author CCM Chronic Pain Care Plan Chronic Care Management Improving( 1:28 PM CDT) Everardo Kirkland RN Note: Problem: Chronic Pain Goals: 1. Minimize further functional decline 2. Maximize quality of life 3. Control pain Strategies: - Activity/exercise program recommendation - Conservative stepwise pain medicine strategy with multi-disciplinary approach - Recommend healthy lifestyle strategies and compensatory methods as needed Medical Devices Implanted Type Area Testing Projects Administrator Device Identifier Shelf Expiration Date Model / Serial / Lot [employer] [id number] [employer] 6fr 24cm Radiopaque Graduate [employer] Monofilament Tether - [id number] Implanted:Qty: 1 on 07/12/2021 by Kathleen Quinn MD at [facility] Stent Left: Ure[employer] [id number] 02/25/2024 [id number] / / [id number] Explanted Type Area Testing Projects Administrator Device Identifier Shelf Expiration Date Model / Serial / Lot [employer] [id number] Inlay [place] 6fr 22cm Pusher Fluoro Marker Atraumatic Insertion Latex Free - [id number] Implanted:Qty: 1 on 06/25/2021 by Wyatt Nunez MD at [facility] Explanted:Qty: 1 on 07/12/2021 by Kathleen Quinn MD at [facility] Stent Left: U[employer] [id number] 06/29/2022 [id number] / / [id number] Description:intact Procedures Procedure Name Priority Date/Time Associated Diagnosis Comments STRESS ECHO EXERCISE W DOPPLER/CF W CONTRAST Routine 06/04/2025 3:18 PM CDT 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 XR CHEST PA LATERAL 2 VIEWS Schedule Routine, Read Routine (OP Routine) 06/04/2025 2:01 PM CDT 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 HEMOGLOBIN A1C Routine 06/01/2025 1:39 PM CDT Diabetes mellitus screening Encounter for aftercare following heart transplant (HCC) Renal insufficiency Other hyperlipidemia Vitamin D deficiency Healthcare maintenance 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 Encounter for long-term (current) use of high-risk medication Immunosuppression Anemia, unspecified type CREATINE KINASE (CK), TOTAL Routine 06/01/2025 1:39 PM CDT Diabetes mellitus screening Encounter for aftercare following heart transplant (HCC) Renal insufficiency Other hyperlipidemia Vitamin D deficiency Healthcare maintenance 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 Encounter for long-term (current) use of high-risk medication Immunosuppression Anemia, unspecified type TACROLIMUS LEVEL, TROUGH Routine 06/01/2025 1:39 PM CDT Diabetes mellitus screening Encounter for aftercare following heart transplant (HCC) Renal insufficiency Other hyperlipidemia Vitamin D deficiency Healthcare maintenance 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 Encounter for long-term (current) use of high-risk medication Immunosuppression Anemia, unspecified type LIPID PANEL Routine 06/01/2025 1:39 PM CDT Diabetes mellitus screening Encounter for aftercare following heart transplant (HCC) Renal insufficiency Other hyperlipidemia Vitamin D deficiency Healthcare maintenance 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 Encounter for long-term (current) use of high-risk medication Immunosuppression Anemia, unspecified type VITAMIN D 25 HYDROXY Routine 06/01/2025 1:39 PM CDT Diabetes mellitus screening Encounter for aftercare following heart transplant (HCC) Renal insufficiency Other hyperlipidemia Vitamin D deficiency Healthcare maintenance 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 Encounter for long-term (current) use of high-risk medication Immunosuppression Anemia, unspecified type URINALYSIS AND REFLEX TO MICROSCOPIC Routine 06/01/2025 1:39 PM CDT Diabetes mellitus screening Encounter for aftercare following heart transplant (HCC) Renal insufficiency Other hyperlipidemia Vitamin D deficiency Healthcare maintenance 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 Encounter for long-term (current) use of high-risk medication Immunosuppression Anemia, unspecified type COMPREHENSIVE METABOLIC PANEL Routine 06/01/2025 1:39 PM CDT Diabetes mellitus screening Encounter for aftercare following heart transplant (HCC) Renal insufficiency Other hyperlipidemia Vitamin D deficiency Healthcare maintenance 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 Encounter for long-term (current) use of high-risk medication Immunosuppression Anemia, unspecified type CBC WITH AUTO DIFFERENTIAL Routine 06/01/2025 1:39 PM CDT Diabetes mellitus screening Encounter for aftercare following heart transplant (HCC) Renal insufficiency Other hyperlipidemia Vitamin D deficiency Healthcare maintenance 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 Encounter for long-term (current) use of high-risk medication Immunosuppression Anemia, unspecified type HEPATITIS C ANTIBODY Routine Gen Lab 02/28/2017 2:41 PM CDT from Last 3 Months or Most Recently Relevant to Health Maintenance Results * STRESS ECHO EXERCISE W DOPPLER/CF W CONTRAST (06/04/2025 3:18 PM CDT) EF Mod BP 57 % CONS SCIMAGE Anatomical Region Laterality Modality Ultrasound 06/04/2025 2:30 PM CDT Narrative 06/04/2025 8:26 PM CDT [facility] [address] , [address] [place] [address] Exercise Stress Transthoracic Echocardiographic Report Patient Name: ANGELES BRAVO M : 1970 (55y 3m) Sex: F Study Date: 06/04/2025 02:30:00 PM Ht(Inch): 64 Wt(Lb): 128 BSA: 1.62 Environmental Technical Officer: Sylwia Chowdhury RDCS, RCCS Location: [facility] Order Provider: HUBERT TORRES Heart Rate: 84 BMI: 21.97 Ref Provider: HUBERT TORRES PROCEDURES: Stress Echo Report: Stress Echocardiography transthoracic, real-time with image documentation (2D), includes M-Mode recording, Doppler Echocardiography and Doppler color flow when performed, during treadmill exercise induced peak heart rate with interpretation and report; including performance of continuous electrocardiographic monitoring, with physician supervision. Additional Procedures: Ultrasound enhancing agent (echo contrast) was administered. Contrast: Contrast Enhancement was Employed: After initial imaging due to sub- optimal quality related to co-morbidity defined by patient's body habitus, used Perflutren contrast because 2 of 16 LV wall segments in any view not visualized, using the volume necessary to obtain adequate images and. 1.1 ml Optison Administered, (1.9 ml wasted). Performed By: uJana Judge RN. Supervising Physician: Dr. Alek Coelho. Procedure Notes: IV Access Placement: right antecubital fossa. Catheter Size: 22 gauge. Patient has been given instructions and understands the test, consent obtained. Patient has been NPO for 4 hours. Medications Taken: Toprol XL. INDICATIONS: Z94.1 Heart transplant status. CONCLUSIONS: 1. No increase in LV contractility at peak stress, however, submax HR and RPP. Stress echocardiogram NON-DIAGNOSTIC for myocardial ischemia due to HR achieved but no NEW WMA or ischemic changes on ECG at this HR. 2. s/p OHTx. Mildly dilated left ventricle based on volume index. Normal left ventricular systolic function. The Ejection Fraction (Quiroz's) is measured at 57 %. 3. Submax HR, No Ischemic changes noted, significant artifact with exercise. 4. Exercise performance was poor (5.2 METS; 3 min 16 sec). 5. Normal right ventricular size. Mild right ventricular hypokinesis. COMPARISONS: Compared with prior study on 10/16/24, there has been a small decrease in HR and overall LVSF. ATTESTATION: I have personally reviewed and interpreted this study without fellow or resident. DISCLAIMER: The study images and the final report will be retained in the patient chart by the Echo Laboratory for the legally required time period. This chart constitutes the legal record of any testing performed. FINDINGS: Left Ventricle: Upper normal left ventricular cavity size based on volume index. Normal left ventricular systolic function. The Ejection Fraction (Quiroz's) is measured at 57 %. Left Ventricular diastolic function is indeterminate due to prior heart transplant. Lat E' 14. Paradoxical interventricular septal motion consistent with prior cardiac or thoracic surgery. s/p OHTx. Right Ventricle: Normal right ventricular size. Mild right ventricular hypokinesis. Left Atrium: s/p OHTx. LA elongation as can be seen s/p OHTx. Right Atrium: s/p OHTx. Mitral Valve: Normal mitral valve structure. Mild mitral valve regurgitation. No stenosis present. Aortic Valve: Trileaflet aortic valve. No aortic regurgitation. No aortic valve stenosis. Tricuspid Valve: Normal tricuspid valve structure. Trace tricuspid regurgitation. No tricuspid valve stenosis. Pulmonic Valve: PV not assessed on stress study. Pericardium: No pericardial effusion. Thickened pericardium. Aorta: Normal aortic root. IVC: IVC is normal in size. The IVC was <2.1 cm and collapsibility >50%. (est. RA pressure 0-5 mmHg). PASP: Unable to determine PASP due to inadequate TR jet. Resting ECG: Normal sinus rhythm. Incomplete RBBB. Low voltage QRS. Stress Data: Protocol - Grant Protocol. Exercise Time: 3 Min 16 Sec Stage two achieved. Resting HR: 90 bpm Resting BP: 103/73 mmHg Peak HR: 116 bpm Peak BP: 133/ 68 mmHg mmHg Predicted Maximal HR: 164 Percent predicted max HR achieved: 71 % Rate-Pressure Product: 17403 METS Achieved: 5.20 Treadmill Angina Index (0=No angina during exercise, 1=non-limiting angina, 2=exercise limited angina): 0 Recovery: Recovery HR: 90 bpm Recovery BP: 112/75 mmHg Recovery Time: 5 min Recovery HR: 86 bpm Recovery BP: 111/74 mmHg HR Response: Heart rate response failed to increase appropriately. Likely due to medications. BP Response: Blood pressure response is appropriate. Exercise ECG: Submax HR, No Ischemic changes noted, significant artifact with exercise. Reason for Termination: Fatigue. Leg Fatigue. Cardiac Symptoms: Symptoms: None. Exercise Performance: Exercise performance was poor (5.2 METS; 3 min 16 sec). MEASUREMENTS: 2D/MM Value Range Doppler Value Range LVIDd 2D 4.25 cm [ 3.80 - 5.20 ] LVOT Peak Ameya 0.6 m/s [ 0.7 - 1.1 ] EDV Mod BP 100.00 ml [ 46.00 - 106.00 ] LVOT Peak PG 1.44 mmHg LV EDV Index 61.80 ml/m2 LVOT Mean PG 1 mmHg ESV Mod BP 43.00 ml [ 14.00 - 42.00 ] LVOT VTI 10.9 cm EF Mod BP 57 % [ 54 - 74 ] LVOT Diam 2.05 cm RV Base Dimen 2D 4.1 cm [ 2.5 - 4.2 ] MV E Peak Ameya 0.7 m/s [ 0.6 - 1.3 ] RV Length Dimen 2D 7.1 cm MV A Peak Ameya 0.3 m/s [ 1.0 - 1.2 ] TAPSE 1.21 cm [ 1.71 - 5.00 ] MV E/A 2.1 ratio [ 0.8 - 1.5 ] MV Decel Time 200.14 msec [ 104.00 - 258.00 ] Med E` Ameya 7.6 cm/sec [ 8.0 - 25.0 ] Lat E` Ameya 14.4 cm/sec [ 10.0 - 25.0 ] Average E/E` 6.36 Electronically Signed By: Alek Coelho M.D. 06/04/2025 8:25:31 PM CDT Procedure Note Alek Coelho MD - 06/04/2025 [facility] [address] , [address] [place] [address] Exercise Stress Transthoracic Echocardiographic Report Patient Name: ANGELES BRAVO M : 1970 (55y 3m) Sex: F Study Date: 06/04/2025 02:30:00 PM Ht(Inch): 64 Wt(Lb): 128 BSA: 1.62 Environmental Technical Officer: Sylwia Chowdhury RDCS [facility] Order Provider:HUBERT TORRES Heart Rate: 84 BMI: 21.97 Ref Provider: HUBERT TORRES PROCEDURES: Stress Echo Report: Stress Echocardiography transthoracic, real-time withimage documentation (2D), includes M-Mode recording, Doppler Echocardiographyand Doppler color flow when performed, during treadmill exercise induced peak heart ratewith interpretation and report; including performance of continuouselectrocardiographic monitoring, with physician supervision. Additional Procedures: Ultrasound enhancing agent (echo contrast) wasadministered. Contrast: Contrast Enhancement was Employed: After initial imaging due tosub- optimal quality related to co-morbidity defined by patient's body habitus, usedPerflutren contrast because 2 of 16 LV wall segments in any view not visualized,using the volume necessary to obtain adequate images and. 1.1 ml Optison Administered, (1.9ml wasted). Performed By: Juana Judge RN. Supervising Physician: Dr. Alek Coelho. Procedure Notes: IV Access Placement: right antecubital fossa. CatheterSize: 22 gauge. Patient has been given instructions and understands the test, consentobtained. Patient has been NPO for 4 hours. Medications Taken: Toprol XL. INDICATIONS: Z94.1 Heart transplant status. CONCLUSIONS: 1. No increase in LV contractility at peak stress, however, submax HR andRPP. Stress echocardiogram NON-DIAGNOSTIC for myocardial ischemia due to HR achievedbut no NEW WMA or ischemic changes on ECG at this HR. 2. s/p OHTx. Mildly dilated left ventricle based on volume index. Normalleft ventricular systolic function. The Ejection Fraction (Quiroz's) is measured at 57%. 3. Submax HR, No Ischemic changes noted, significant artifact withexercise. 4. Exercise performance was poor (5.2 METS; 3 min 16 sec). 5. Normal right ventricular size. Mild right ventricular hypokinesis. COMPARISONS: Compared with prior study on 10/16/24, there has been a small decrease in HRand overall LVSF. ATTESTATION: I have personally reviewed and interpreted this study without fellow orresident. DISCLAIMER: The study images and the final report will be retained in the patientchart by the Echo Laboratory for the legally required time period. This chart constitutesthe legal record of any testing performed. FINDINGS: Left Ventricle: Upper normal left ventricular cavity size based on volumeindex. Normal left ventricular systolic function. The Ejection Fraction (Quiroz's) ismeasured at 57 %. Left Ventricular diastolic function is indeterminate due to prior hearttransplant. Lat E' 14. Paradoxical interventricular septal motion consistent withprior cardiac or thoracic surgery. s/p OHTx. Right Ventricle: Normal right ventricular size. Mild right ventricularhypokinesis. Left Atrium: s/p OHTx. LA elongation as can be seen s/p OHTx. Right Atrium: s/p OHTx. Mitral Valve: Normal mitral valve structure. Mild mitral valveregurgitation. No stenosis present. Aortic Valve: Trileaflet aortic valve. No aortic regurgitation. No aorticvalve stenosis. Tricuspid Valve: Normal tricuspid valve structure. Trace tricuspidregurgitation. No tricuspid valve stenosis. Pulmonic Valve: PV not assessed on stress study. Pericardium: No pericardial effusion. Thickened pericardium. Aorta: Normal aortic root. IVC: IVC is normal in size. The IVC was <2.1 cm and collapsibility >50%.(est. RA pressure 0-5 mmHg). PASP: Unable to determine PASP due to inadequate TR jet. Resting ECG: Normal sinus rhythm. Incomplete RBBB. Low voltage QRS. Stress Data: Protocol - Grant Protocol. Exercise Time: 3 Min 16 Sec Stage two achieved. Resting HR: 90 bpm Resting BP: 103/73 mmHg Peak HR: 116 bpm Peak BP: 133/ 68 mmHg mmHg Predicted Maximal HR: 164 Percent predicted max HR achieved: 71 % Rate-Pressure Product: 55467 METS Achieved: 5.20 Treadmill Angina Index (0=No angina during exercise, 1=non-limitingangina, 2=exercise limited angina): 0 Recovery: Recovery HR: 90 bpm Recovery BP: 112/75 mmHg Recovery Time:5 min Recovery HR: 86 bpm Recovery BP: 111/74 mmHg HR Response: Heart rate response failed to increase appropriately.Likely due to medications. BP Response: Blood pressure response is appropriate. Exercise ECG: Submax HR, No Ischemic changes noted, significantartifact with exercise. Reason for Termination: Fatigue. Leg Fatigue. Cardiac Symptoms: Symptoms: None. Exercise Performance: Exercise performance was poor (5.2 METS; 3 min 16sec). MEASUREMENTS: 2D/MM Value Range DopplerValue Range LVIDd 2D 4.25 cm [ 3.80 - 5.20 ] LVOT Peak Vel0.6 m/s [ 0.7 - 1.1 ] EDV Mod BP 100.00 ml [ 46.00 - 106.00 ] LVOT Peak PG1.44 mmHg LV EDV Index 61.80 ml/m2 LVOT Mean PG1 mmHg ESV Mod BP 43.00 ml [ 14.00 - 42.00 ] LVOT VTI10.9 cm EF Mod BP 57 % [ 54 - 74 ] LVOT Diam2.05 cm RV Base Dimen 2D 4.1 cm [ 2.5 - 4.2 ] MV E Peak Vel0.7 m/s [ 0.6 - 1.3 ] RV Length Dimen 2D 7.1 cm MV A Peak Vel0.3 m/s [ 1.0 - 1.2 ] TAPSE 1.21 cm [ 1.71 - 5.00 ] MV E/A2.1 ratio [ 0.8 - 1.5 ] MV Decel Time 200.14 msec [ 104.00 - 258.00 ] Med E` Ameya 7.6 cm/sec [ 8.0 - 25.0 ] Lat E` Ameya 14.4 cm/sec [ 10.0 - 25.0 ] Average E/E` 6.36 Electronically Signed By: Alek Coelho M.D. 06/04/2025 8:25:31 PM CDT Hubert Torres MD PhD CV ECHO PROCEDURES F inal Result * X-ray chest 2 views (06/04/2025 2:01 PM CDT) Anatomical Region Laterality Modality Body, Chest N/A Computed Radiogr aphy 06/04/2025 2:22 PM CDT Impressions 06/04/2025 2:22 PM CDT Comparison is made to CT abdomen and pelvis 03/12/2025 and chest radiograph from 07/02/2024 Unchanged appearance of the lung bases compared to prior with small right hydropneumothorax, better seen on prior CT abdomen and pelvis, along with bibasilar atelectasis and scarring with elevation of the left hemidiaphragm. Median intact sternotomy wires. Cardiomediastinal silhouette stable. No new focal airspace opacity. Electronically signed by: Ryan Mart M.D. Narrative 06/04/2025 2:22 PM CDT EXAMINATION: 2 view chest radiograph Procedure Note Ryan Mart MD - 06/04/2025 EXAMINATION: 2 view chest radiograph IMPRESSION: Comparison is made to CT abdomen and pelvis 03/12/2025 and chest radiograph from 07/02/2024 Unchanged appearance of the lung bases compared to prior with small right hydropneumothorax, better seen on prior CT abdomen and pelvis, along with bibasilar atelectasis and scarring with elevation of the left hemidiaphragm. Median intact sternotomy wires. Cardiomediastinal silhouette stable. No new focal airspace opacity. Electronically signed by: Ryan Mart M.D. Hubert Torres MD PhD IMG XR PROCEDURES Fi nal Result * Tacrolimus level trough (06/01/2025 1:39 PM CDT) Pathologist [facility] [place] Tacrolimus (FK506), Blood 7.2 5.0 - 20.0 ng/mL [facility] - 01 Comment: Target steady state trough concentration for Tacrolimus varies based on type of organ transplant immunosuppressive protocol and other patient specific factors. Tacrolimus trough concentrations should be interpreted in conjunction with clinical assessments of rejection and tolerability. Values obtained with different assay methods cannot be used interchangeably due to differences in assay methods and cross-reactivty with metabolites, nor should correction factors be applied. Therefore, consistent use of one assay for individual patients is recommended. Detection Limit = 0.5 ng/mL Performed by LC-MS/MS technology. Blood 06/01/2025 1:39 PM CDT 06/01/2025 Narrative [facility] - 06/05/2025 3:07 AM CDT Test(s) [id number] ([id number]), Blood was developed and its performance characteristics determined by [facility]. It has not been cleared or approved by the Food and Drug Administration. Performed at: - [address] [id number] Butter Grader: Terrence Ladd MD, Phone: [phone] us Joshua Driver MD LAB BLOOD ORDERABLES Final R esult [facility] - 01 * Urinalysis reflex to microscopic (06/01/2025 1:39 PM CDT) [facility] Specific [place] 1.012 1.005 - 1.030 [facility] - 01 pH, ur 6.0 5.0 - 7.5 [facility] - 01 Color, ur Yellow Yellow [facility] - 01 Appearance, ur Clear Clear [facility] - 01 Leukocyte esterase, ur Negative Negative [facility] - 01 Protein, ur Negative Negative/Tra ce [facility] - 01 Glucose, ur Negative Negative [facility] - 01 Ketones, ur Negative Negative [facility] - 01 Blood, ur Negative Negative [facility] - 01 Bilirubin, ur Negative Negative [facility] - 01 Urobilinogen, quant, ur 0.2 0.2 - 1.0 mg/dL [facility] - 01 Nitrites, ur Negative Negative [facility] - 01 Urinalysis, microscopic exam Comment [facility] - 01 Comment:Microscopic not pat cated and not performed. Urine 06/01/2025 1:39 PM CDT 06/01/2025 Narrative [facility] - 06/02/2025 7:09 AM CDT Performed at: - [address] [id number] Butter Grader: Leon Cruz PhD, Phone: [phone] us Joshua Driver MD LAB URINE ORDERABLES Final R esult [facility] * (ABNORMAL) CBC with auto differential (06/01/2025 1:39 PM CDT) WBC 9.5 3.4 - 10.8 x10E3/uL [facility] - 01 RBC 4.64 3.77 - 5.28 x10E6/uL [facility] - 01 Hgb 13.7 11.1 - 15.9 g/dL [facility] - 01 Hct 44.0 34.0 - 46.6 % [facility] - 01 MCV 95 79 - 97 fL [facility] - 01 MCH 29.5 26.6 - 33.0 pg [facility] - 01 MCHC 31.1(L) 31.5 - 35.7 g/dL [facility] - 01 Rdw 14.5 11.7 - 15.4 % [facility] - 01 Platelets 244 150 - 450 x10E3/uL [facility] - 01 Neutrophils pct 56 Not Estab. % [facility] - 01 Lymphs pct 31 Not Estab. % [facility] - 01 Monocytes pct 7 Not Estab. % [facility] - 01 Eosinophils pct 5 Not Estab. % [facility] - 01 Basophil pct 1 Not Estab. % [facility] - 01 Neutrophil abs 5.3 1.4 - 7.0 x10E3/uL [facility] - 01 Lymphs (Absolute) 2.9 0.7 - 3.1 x10E3/uL [facility] - 01 Monocyte abs 0.7 0.1 - 0.9 x10E3/uL [facility] - 01 Eosinophils, abs 0.5(H) 0.0 - 0.4 x10E3/uL [facility] - 01 Basophils, abs 0.1 0.0 - 0.2 x10E3/uL [facility] - 01 Immature Granulocytes 0 Not Estab. % [facility] - 01 Immature Grans (Abs) 0.0 0.0 - 0.1 x10E3/uL [facility] - 01 Blood 06/01/2025 1:39 PM CDT 06/01/2025 Narrative [facility] - 06/02/2025 7:09 AM CDT Performed at: - Lab[address] [id number] Butter Grader: Leon Cruz PhD, Phone: [phone] us Joshua Driver MD LAB BLOOD ORDERABLES Final R esult [facility] - 01 * Vitamin D 25 hydroxy (06/01/2025 1:39 PM CDT) Pathologist [facility] [place] Vitamin D, 25-Hydroxy 30.5 30.0 - 100.0 ng/mL [facility] - 01 Comment: Vitamin D deficiency has been defined by the [place] of [employer] and an Endocrine Society practice guideline as a level of serum 25-OH vitamin D less than 20 ng/mL (1,2). The Endocrine Society went on to further define vitamin D insufficiency as a level between 21 and 29 ng/mL (2). 1. IOM ([place] of [employer]). 2010. Dietary reference intakes for calcium and D. [place]: The National Academies Press. 2. Joanne MF, Oliver MCCLOUD, Ashli WOOTEN, et al. Evaluation, treatment, and prevention of vitamin D deficiency: an Endocrine Society clinical practice guideline. JCEM. 2010; 96(7):1911-30. Blood 06/01/2025 1:39 PM CDT 06/01/2025 Narrative [facility] - 06/02/2025 7:09 AM CDT Performed at: [address] [id number] Butter Grader: Leon Cruz PhD, Phone: [phone] Joshua Driver MD LAB BLOOD ORDERABLES Final R esult Performing Organization Address [facility] Co de Phone Number [facility] * Hemoglobin A1c (06/01/2025 1:39 PM CDT) [facility] Hgb A1C 5.6 4.8 - 5.6 % [facility] - Comment: Prediabetes: 5.7 - 6.4 Diabetes: >6.4 Glycemic control for adults with diabetes: <7.0 Blood 06/01/2025 1:39 PM CDT 06/01/2025 Narrative [facility] - 06/02/2025 8:11 AM CDT Performed at: [address] [place] [id number] Butter Grader: Leon Cruz PhD, Phone: [phone] Joshua Driver MD LAB BLOOD ORDERABLES Final R esult Performing Organization Address [facility] de Phone Number [facility] * Creatine kinase (CK), total (06/01/2025 1:39 PM CDT) [facility] CK 166 32 - 182 U/L [facility] - Blood 06/01/2025 1:39 PM CDT 06/01/2025 Narrative [facility] - 06/02/2025 12:10 PM CDT Performed at: [address] [id number] Butter Grader: Leon Cruz PhD, Phone: [phone] Joshua Driver MD LAB BLOOD ORDERABLES Final R esult Performing Organization Address [facility] de Phone Number [facility] * Lipid panel (06/01/2025 1:39 PM CDT) [facility] Cholesterol 144 100 - 199 mg/dL [facility] - 01 Triglycerides 118 0 - 149 mg/dL [facility] - 01 HDL Cholesterol 93 >39 mg/dL [facility] - 01 VLDL 20 5 - 40 mg/dL [facility] - 01 LDL, calculated 31 0 - 99 mg/dL [facility] - 01 Blood 06/01/2025 1:39 PM CDT 06/01/2025 Narrative [facility] - 06/02/2025 12:10 PM CDT Performed at: [address] [place] [id number] Butter Grader: Leon Cruz PhD, Phone: [phone] us Joshua Driver MD LAB BLOOD ORDERABLES Final R esult [facility] 01 * (ABNORMAL) Comprehensive metabolic panel (06/01/2025 1:39 PM CDT) Pathologist [facility] [place] Glucose 93 70 - 99 mg/dL [facility] - 01 BUN 30(H) 6 - 24 mg/dL [facility] - 01 Creatinine, Serum 1.63(H) 0.57 - 1.00 mg/dL [facility] - 01 eGFR 37(L) >59 mL/min/1.7 3 [facility] - 01 BUN/creat ratio 18 9 - 23 [facility] - 01 Sodium 146(H) 134 - 144 mmol/L [facility] - 01 Potassium, sr 4.9 3.5 - 5.2 mmol/L [facility] - 01 Chloride 104 96 - 106 mmol/L [facility] - 01 CO2 23 20 - 29 mmol/L [facility] - 01 Calcium 9.9 8.7 - 10.2 mg/dL [facility] - 01 Protein, sr 6.9 6.0 - 8.5 g/dL [facility] - 01 Albumin 4.2 3.8 - 4.9 g/dL [facility] - 01 Globulin, Total 2.7 1.5 - 4.5 g/dL [facility] - 01 Bilirubin, Total 0.4 0.0 - 1.2 mg/dL [facility] - 01 Alk phos 106 49 - 135 IU/L [facility] - 01 Comment:Please note refere nce interval change AST 34 0 - 40 IU/L [facility] - 01 ALT 33(H) 0 - 32 IU/L [facility] - 01 Blood 06/01/2025 1:39 PM CDT 06/01/2025 Narrative [facility] - 06/02/2025 12:10 PM CDT Performed at: - [address] [id number] Butter Grader: Leon Cruz PhD, Phone: [phone] us Joshua Driver MD LAB BLOOD ORDERABLES Final R esult [facility] - 01 * Hepatitis C antibody (02/28/2017 2:41 PM CDT) [facility] Hep C Ab Nonreactive Nonreactive [facility] Comment: Interpretive Data Positive and greyzone results should be confirmed by a molecular method. If positive or greyzone, a second separately collected sample should be submitted for Hepatitis C Virus RNA. Detection and Quantitation by Real-Time Reverse Cut Roll Machine Offbearer-PCR.Current Interpretive data was last revised on 2017. Blood specimen (specimen) 02/28/2017 2:41 PM CDT 02/28/2017 3:49 PM CDT us Pawan Eli MD LAB MICROBIOLOGY - GENERAL ORDERABLES Edited Result - Final Performing Organization Address City/[facility] Co de Phone Number [facility] Department [place] [address] from Last 3 Months or Most Recently Relevant to Health Maintenance Additional Health Concerns Infection Onset Date Last Indicated MDR gram neg/ESBL 05/22/2022 02/18/2023 Insurance [employer] MEDICARE GOLD MEDICARE [facility] AETNA MEDICARE GOLD [facility] FEDERAL MEDICARE [facility] TRADITIONAL [facility] FEDERAL [employer]ET[employer] MEDICARE GOLD Advance Directives For more information, please contact: [phone] * Full Code (Latest Code Status on File) Date Activated Date Inactivated Comments 01/01/2025 7:38 AM 01/02/2025 4:37 PM * Full Code Date Activated Date Inactivated Comments 07/02/2024 8:45 PM 07/04/2024 9:01 PM * Full Code Date Activated Date Inactivated Comments 05/29/2024 9:10 AM 05/30/2024 4:33 AM * Full Code Date Activated Date Inactivated Comments 02/19/2023 5:45 AM 02/23/2023 5:54 PM * Full Code Date Activated Date Inactivated Comments 06/24/2021 8:50 PM 07/13/2021 4:50 PM Healthcare Agents on File Name Relationship Healthcare Agent Relationship Communication Rajesh Reza Significant Other Health Care Agent [email or web address] Faiza Romero Sister First Alternate Health Care Agent Care Teams Insurance Claim Representative Relationship Specialty Start Date End Date Jose Matute MD [address] [place] [id number] PCP - General 04/02/17 Radha Carolina RN [phone] [address] Registered Nurse Transplant 04/17/18 ZavalaHannah moyah Primary Registered Nurse Float Pool Transplant 04/17/18 Jose Matute MD [address] [place] [address] Referring Physician Family Medicine 04/30/18 Carlos Hidalgo MD Fellow Internal Medicine 01/14/19 Johnny Hewitt MD Security Investigator Obstetrics and Gynecology 06/02/21 Pk Gutiérrez MD PhD Referring Physician Cardiology 02/23/23 Siva Jacobs MD PhD [address] [place] [address] Referring Physician Cardiology 07/04/24 Angeles Ray Primary Registered Nurse Float Pool 05/28/25
--- OUTSIDE RECORDS SUMMARY | 2025-06-27 11:29 | XMS_ITS ---
Author Organization [facility] Address [address] [place] [address] Care Team Providers Care Neuropathologist Name Role Phone Jose Matute MD Primary Care Provider [phone] Radha Carolina RN Unavailable [phone] Sonia Zavala Unavailable Unavailable Jose Matute MD Unavailable [phone] Carlos Hidalgo MD Unavailable [phone] Johnny Hewitt MD Unavailable [phone] Pk Gutiérrez MD PhD Unavailable + Siva Jacobs MD PhD Unavailable [phone] Angeles Ray Unavailable Unavailable Transplant Episode Heart Recipient [facility] ([place], [place]) - [facility] Organ Received: Heart Transplanted on 04/06/2018 Marked as Active Follow-up on 04/06/2018 Reason: Transplanted at [facility] Heart CoordinatorRadha Carolina RN Fax: N/A Email: N/A 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 History Noted Survival Infection Treatment Organism Resolved 07/03/2024 6 years 2 months COVID-19 02/19/2023 4 years 10 months Pyelonephritis 07/05/2021 3 years 2 months Pyelonephritis due to Escherichia coli Donor Information Organ ABO Source Meets Risk Criteria HLA Match Mismatches Cross Match Heart Transplanted A DBD No A: B: DR: Heart Donor Serology Results Anti-CMV CMV IgG: Positive Anti-HBcAb HBC Total: Negative HBsAg HBsAg: Negative HBV DNA No results on file Anti-HCV HCV: Negative Anti-HIV I/II No results on file Anti-HTLV I/II HTLV: Not Done RPR/VDRL RPR: Negative HBsAb HBsAb: Not Done SARS CoV-2 No results on file Care Team Name Role Phone Fax Email Radha Carolina RN Aquatic Life Laborer [phone] N/A N/A Tico Reis Threshing Department Supervisor [phone] N/A N/A Radha Carolina RN [employer] Solution Architect [phone] N/A N/A Pawan Eli MD Copywriter [phone] N/A Jose Matute MD Referring Physician [phone] N/A Angeles Ray Primary Prototype Technician N/A N/A N/A Events Post-Transplant Pre-Transplant Admitted: 04/05/2018 Referred: 10/05/2016 Transplanted: 04/06/2018 Evaluation began: 7 Discharged: 04/18/2018 Center waitlisted: 8 Appointments (05/28/2025 - 07/28/2025) When With Visit Type Description 06/04/2025 Transplant Return 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 (Primary Dx); Encounter for aftercare following heart transplant (HCC)
== END 2025-06-27 11:23 | disposition home or self-care (01) ==
LOC: CHSIMG 11:24
PROVIDERS: PCP Family Medicine
DX: N28.89 Other specified disorders of kidney and ureter (principal); Z98.890 Other specified postprocedural states
CPT/HCPCS: 74183; A9577